=== PATIENT | female | born 1960 | race Caucasian/White ===

== ENCOUNTER 2016-12-29 17:10 | Emergency (ER) | payer OTHER ==
[2016-12-29 17:22] VITALS: PULSE 69; O2SAT 95
--- NOTE | 2016-12-29 17:50 | ERPHSYRPT ---
- History of Present Illness Time Seen by Provider: 12/29/16 17:44 Source: patient Exam Limitations: no limitations Patient Subjective Stated Complaint: Pt states she tripped and fell onto right shoulder. Pt complaining of pain in the right shoulder and abrasions to the lower right arm. Denies hitting her head or loss of consciousness. Triage Nursing Assessment: Pt alert and oriented x3. skin pink warm and dry. afebrile. bruising noted to right upper arm. abrasions noted to right lower arm. no obvious deformities noted to right shoulder. cap refill <3 sec. radial pulse present and regular Physician History: The patient is a right-handed female complaining of right shoulder pain after falling on the floor on her right shoulder. She also skinned her right wrist. She doesn't know when her last tetanus vaccination was given. She fell because her feet have been going numb recently. She has an appointment in just a few days to have this checked out. Today she did not hit her head and she denies loss of consciousness. Her past medical history is significant for GERD, depression, hypertension, and asthma. Occurred: just prior to arrival Reason for Fall: lost balance, fell from standing pos Injuries/Pain Location: upper extremity Loss of Consciousness: no loss of consciousness Quality: aching Severity of Pain-Max: mild Severity of Pain-Current: mild Modifying Factors: Improves With: nothing Associated Symptoms (Fall): extremity injury Allergies/Adverse Reactions: Penicillins Allergy (Severe, Verified 12/29/16 17:22) Difficulty Breathing codeine Allergy (Mild, Verified 12/29/16 17:22) Hives aspirin Allergy (Verified 12/29/16 17:22) ibuprofen [From Motrin] Allergy (Verified 12/29/16 17:22) Home Medications: Albuterol Sulfate [Albuterol Sulfate Hfa] 2 puffs IH BID PRN 09/23/13 [History] Lisinopril 10 mg [Zestril 10 MG] 30 mg PO DAILY 09/23/13 [History] Citalopram Hydrobromide [ceLEXa] 40 mg PO DAILY 05/15/16 [History] Zolpidem Tartrate [Ambien] 10 mg PO DAILY 05/15/16 [History] Aripiprazole [Abilify] 5 mg PO DAILY 12/29/16 [History] Disulfiram [Antabuse] 500 mg PO DAILY 12/29/16 [History] Omeprazole 20 MG [Prilosec 20 mg] 20 mg PO DAILY 12/29/16 [History] Hx Tetanus, Diphtheria Vaccination/Date Given: (unknown) Hx Influenza Vaccination/Date Given: Yes Hx Pneumococcal Vaccination/Date Given: No - Review of Systems Constitutional: No Fever, No Chills Eyes: No Symptoms Ears, Nose, & Throat: No Symptoms Respiratory: No Cough, No Dyspnea Cardiac: No Chest Pain, No Edema, No Syncope Abdominal/Gastrointestinal: No Abdominal Pain, No Nausea, No Vomiting, No Diarrhea Genitourinary Symptoms: No Symptoms Musculoskeletal: Fall, Injury Skin: No Rash Neurological: No Dizziness, No Focal Weakness, No Sensory Changes Psychological: No Symptoms Endocrine: No Symptoms Hematologic/Lymphatic: No Symptoms Immunological/Allergic: No Symptoms - Past Medical History Pertinent Past Medical History: Yes Neurological History: Seizures ENT History: No Pertinent History Cardiac History: Hypertension Respiratory History: Asthma Endocrine Medical History: Hypoglycemia Musculoskeletal History: Fractures GI Medical History: Ulcer History: Other Psycho-Social History: Depression, Other Female Reproductive Disorders: No Pertinent History Other Medical History: PTSD - Past Surgical History Past Surgical History: Yes Neuro Surgical History: No Pertinent History Cardiac: No Pertinent History Respiratory: No Pertinent History Gastrointestinal: No Pertinent History Musculoskeletal: Orthopedic Surgery Female Surgical History: Section Other Surgical History: RIGHT ARM X2 - Social History Smoking Status: Former smoker Exposure to second hand smoke: No Drug Use: none Patient Lives Alone: Yes - Female History Hx Now: No - Nursing Vital Signs Nursing Vital Signs: Initial Vital Signs Temperature 98.6 F Temperature Source Oral Pulse Rate 69 Respiratory Rate 16 Pain Intensity 6 - [place] Coma Score Best Eye Response (Jony): (4) open spontaneously Best Verbal Response ([place]): (5) oriented Best Motor Response ([place]): (6) obeys commands [place] Total: 15 - Physical Exam General Appearance: no apparent distress, alert Head Injury: no evidence of injury Eye Exam: PERRL/EOMI ENT Exam: airway nml Neck Exam: normal inspection, No tenderness Respiratory/Chest Exam: normal breath sounds, No chest tenderness, No respiratory distress Cardiovascular Exam: normal heart sounds, regular rate/rhythm Gastrointestinal Exam: soft, No tenderness, No distention, No guarding, No ecchymosis Rectal Exam: not done Back Exam: normal inspection, No vertebral tenderness Extremity Exam: limited range of motion (right shoulder), tenderness, other ( abrasion to right wrist) Neurologic Exam: alert, oriented x 3, cooperative, sensation nml, No motor deficits Skin Exam: normal color, warm, dry SpO2 Interpretation: normal SpO2: 95 Oxygen Delivery: Room Air - Radiology Exams Right Shoulder X-ray Interpretation: Interpreted by me, Negative, No Fracture, Other (No PTX) Ordered Tests: Active Orders 24 hr Category Date Time Status SHOULDER Stat Exams 12/29/16 17:53 Taken Medication Summary Discontinued Medications Generic Name Dose Route Start Last Admin Trade Name Freq PRN Reason Stop Dose Admin Diphtheria/Tetanus/Acell Pertussis 0.5 ml 12/29/16 17:53 12/29/16 18:05 Adacel Vial IM 12/29/16 17:54 0.5 ml .ONCE ONE Administration Diphtheria/Tetanus/Acell Pertussis Confirm 12/29/16 18:01 Adacel Vial Administered 12/29/16 18:02 Dose 0.5 ml IM .STK-MED ONE - Progress Progress: unchanged Counseled pt/family regarding: rad results - Departure Time of Disposition: 19:35 Departure Disposition: Home Clinical Impression: Contusion of right shoulder Condition: Stable Critical Care Time: No Additional Instructions: You have a contusion of your right shoulder that occurred when you fell today. The x-ray was negative of your shoulder for fracture. Apply ice to the area as needed. Take Tylenol as needed.
[2016-12-29] MEDS ORDERED: Adacel Vial IM ONE ×2 (17:53→18:01)
--- NOTE | 2016-12-30 08:48 | XRAY ---
Indication: Pain following fall. Comparison: None 3 views of the right shoulder demonstrates minimal AC degenerative arthropathy. No other bony, articular, or soft tissue abnormalities.
== END 2016-12-29 19:41 | disposition home or self-care (01) ==
LOC: ED 17:10
DX: S40.011A Contusion of right shoulder, initial encounter (principal); W01.0XXA Fall on same level from slipping, tripping and stumbling without subsequent striking against object, initial encounter; S60.811A Abrasion of right wrist, initial encounter
CPT/HCPCS: 73030; 90471; 90715; 99283; 99284

== ENCOUNTER 2017-01-14 09:18 | Emergency (ER) | payer OTHER ==
--- NOTE | 2017-01-14 09:52 | ERPHSYRPT ---
- History of Present Illness Time Seen by Provider: 01/14/17 09:46 Source: patient Exam Limitations: no limitations Patient Subjective Stated Complaint: tripped with croc shoes on this am and hit a porcelin piece of pottery with right arm and struck left lower chin Triage Nursing Assessment: to room per w/c. patient states she prefers to use w /c due to instability when walking. states her doctor is seeing her for this and trying more meds. long abrasions noted to right lower arm without bleeding. has 2cm lac to left lower lip with minimal bleeding. denies hitting head and denies loc. rosenbaum without difficulty. right radial pulse strong. good cap refill. Physician History: The patient is a right-handed 56-year-old female who tripped this morning and fell causing abrasions and pain to her right forearm as well as hitting her chin causing a small laceration to her lower lip area. She denies loss of consciousness. Her tetanus vaccination was within the past year. Her past medical history is significant for fractures of her right forearm with hardware fixation. Her past medical history is also significant for GERD, hypertension, and asthma. Occurred: just prior to arrival Reason for Fall: tripped, fell from standing pos Injuries/Pain Location: face, upper extremity (right forearm) Loss of Consciousness: no loss of consciousness Quality: sharpness Severity of Pain-Max: mild Severity of Pain-Current: mild Modifying Factors: Improves With: nothing Associated Symptoms (Fall): extremity injury Allergies/Adverse Reactions: Penicillins Allergy (Severe, Verified 01/14/17 09:32) Difficulty Breathing codeine Allergy (Mild, Verified 01/14/17 09:32) Hives aspirin Allergy (Verified 01/14/17 09:32) ibuprofen [From Motrin] Allergy (Verified 01/14/17 09:32) Home Medications: Albuterol Sulfate [Albuterol Sulfate Hfa] 2 puffs IH BID PRN 09/23/13 [History] Lisinopril 10 mg [Zestril 10 MG] 30 mg PO DAILY 09/23/13 [History] Citalopram Hydrobromide [ceLEXa] 40 mg PO DAILY 05/15/16 [History] Zolpidem Tartrate [Ambien] 10 mg PO DAILY 05/15/16 [History] Aripiprazole [Abilify] 5 mg PO DAILY 12/29/16 [History] Disulfiram [Antabuse] 500 mg PO DAILY 12/29/16 [History] Omeprazole 20 MG [Prilosec 20 mg] 20 mg PO DAILY 12/29/16 [History] Hx Tetanus, Diphtheria Vaccination/Date Given: Yes (2016) Hx Influenza Vaccination/Date Given: Yes Hx Pneumococcal Vaccination/Date Given: No - Review of Systems Constitutional: No Fever, No Chills Eyes: No Symptoms Ears, Nose, & Throat: No Symptoms Respiratory: No Cough, No Dyspnea Cardiac: No Chest Pain, No Edema, No Syncope Abdominal/Gastrointestinal: No Abdominal Pain, No Nausea, No Vomiting, No Diarrhea Genitourinary Symptoms: No Dysuria Musculoskeletal: Fall, Injury Skin: Other (lac) Neurological: No Dizziness, No Focal Weakness, No Sensory Changes Psychological: No Symptoms Endocrine: No Symptoms Hematologic/Lymphatic: No Symptoms Immunological/Allergic: No Symptoms All Other Systems: Reviewed and Negative - Past Medical History Pertinent Past Medical History: Yes Neurological History: Seizures ENT History: No Pertinent History Cardiac History: Hypertension Respiratory History: Asthma Endocrine Medical History: Hypoglycemia Musculoskeletal History: Fractures GI Medical History: Ulcer History: Other Psycho-Social History: Depression, Other Female Reproductive Disorders: No Pertinent History Other Medical History: PTSD - Past Surgical History Past Surgical History: Yes Neuro Surgical History: No Pertinent History Cardiac: No Pertinent History Respiratory: No Pertinent History Gastrointestinal: No Pertinent History Musculoskeletal: Orthopedic Surgery Female Surgical History: Hysterectomy, Section Other Surgical History: RIGHT ARM X2 - Social History Smoking Status: Never smoker Exposure to second hand smoke: No Drug Use: none Patient Lives Alone: Yes - Female History Hx Now: No - Nursing Vital Signs Nursing Vital Signs: Initial Vital Signs Temperature 98.3 F Temperature Source Oral Pulse Rate 83 Respiratory Rate 18 Blood Pressure [] 136/58 Pain Intensity 6 - [place] Coma Score Best Eye Response ([place]): (4) open spontaneously Best Verbal Response ([place]): (5) oriented Best Motor Response ([place]): (6) obeys commands [place] Total: 15 - Physical Exam General Appearance: no apparent distress, alert Head Injury: lacerations (Through and through 1 cm lac in lower lip and surrounding skin.) Eye Exam: PERRL/EOMI ENT Exam: airway nml Neck Exam: normal inspection, No tenderness Respiratory/Chest Exam: normal breath sounds, No chest tenderness, No respiratory distress Cardiovascular Exam: normal heart sounds, regular rate/rhythm Gastrointestinal Exam: soft, No tenderness, No distention, No guarding, No ecchymosis Rectal Exam: not done Back Exam: No vertebral tenderness Extremity Exam: evidence of injury (tenderness and abrasions to right forearm), pain with movement Neurologic Exam: alert, oriented x 3, cooperative, sensation nml, No motor deficits Skin Exam: laceration (skin beneath lower lip) SpO2 Interpretation: normal SpO2: 96 Oxygen Delivery: Room Air Procedures - Laceration/Wound Repair Lower Lip Wound Location: face (skin beneath lower lip) Wound Length (cm): 1 Wound's Depth, Shape: into muscle, linear Wound Explored: clean Hibiclens Prep: Yes Wound Repaired With: Dermabond - Radiology Exams Right Forearm X-ray Interpretation: Teleradiologist Report, No Fracture (No acute abnormality per DR Garcia) Ordered Tests: Active Orders 24 hr Category Date Time Status Wound Care STAT Care 01/14/17 09:58 Active FOREARM Stat Exams 01/14/17 09:59 Completed - Progress Progress: unchanged Counseled pt/family regarding: diagnosis, rad results - Departure Time of Disposition: 11:23 Departure Disposition: Home Clinical Impression: Contusion of right arm, Laceration of face Condition: Stable Critical Care Time: No Additional Instructions: You had a fall that caused a contusion and abrasions to your right forearm. X- ray of your right forearm did not show any fracture. Your tetanus vaccination is up-to-date. You also had a laceration just beneath your lower lip that was repaired with Dermabond. Take Tylenol for pain as needed. Follow-up as needed.
--- NOTE | 2017-01-14 11:13 | XRAY ---
Exam: 2 views of the right forearm from 01/14/2017. Comparison: None. Indication: Fall, right forearm laceration (external arrow points towards site of laceration injury on lateral image), history of previous surgeries and fractures. Findings: AP and lateral images of the right forearm were obtained. I see no underlying bone or soft tissue abnormality at the level of the external arrow which points towards the dorsal aspect of the right ulna, just proximal to the midpoint. No other evidence of acute fracture is seen. 2 crisscrossing metallic screw and pin devices traverse the distal right radius and distal right ulnar styloid remnant. A portion of the distal right ulnar shaft has been surgically excised. It also appears that the right radial head and neck have been excised. A couple old appearing dystrophic calcifications are seen adjacent to the proximal end of the remaining radial shaft at the level of the elbow joint on the lateral radiograph. I see no elevation of anterior fat pad. However, there is a suggestion of a minimal posterior fat pad. Arthritic changes are seen at the level of the right elbow along the medial aspect. The radiocarpal joint appears unremarkable. Impression: 1. I see no acute fracture or radiopaque soft tissue foreign body at the site of the patient's injury, or elsewhere within the right forearm. 2. Surgical excision of a portion of the distal right ulna and proximal right radius is seen. 2 traversing pins/screw devices are seen just proximal to the right wrist joint. 3. 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 4. I cannot exclude a minimal posterior fat pad just proximal to the right elbow joint.
[2017-01-14 11:44] VITALS: BP 141/83; PULSE 79; O2SAT 98
== END 2017-01-14 11:43 | disposition home or self-care (01) ==
LOC: ED 09:18
PROC: 0CQ1XZZ Repair Lower Lip, External Approach (ICD-10-PCS; principal; 2017-01-14)
DX: S40.021A Contusion of right upper arm, initial encounter (principal); S01.511A Laceration without foreign body of lip, initial encounter; W01.198A Fall on same level from slipping, tripping and stumbling with subsequent striking against other object, initial encounter
CPT/HCPCS: 12011; 73090; 99282

== ENCOUNTER 2017-01-18 07:14 | Observation (INO) | payer OTHER ==
[2017-01-18] MEDS ORDERED: Sodium Chloride 0.9% 1000 ML 1,000 ML IV STA ×2 (07:38→07:48)
[2017-01-18] MEDS ORDERED: Ativan 2 MG/1 ML VIAL IV ONE (07:53)
[2017-01-18 07:54] LABS: BASOPHIL % 0.6 % (0.0-0.4); Eosinophil % 1.4 % (0.00-5.0); Granulocytes % 48.2 % (36.0-66.0); Lymphocytes % 40.8 % (24.0-44.0); Mean Cell Volume 90.3 fl (78-100); Mean Corpuscular Hemoglobin 30.2 pg (26-32); Mean Platelet Volume 9.8 fl (6-9.5); Platelet Count 345 K/mm3 (150-450); Red Blood Count 5.17 M/mm3 (4.1-5.4); Red Cell Distribution Width 14.2 % (11.5-14.0); White Blood Count 7.2 K/mm3 (4.0-10.5)
--- NOTE | 2017-01-18 07:56 | ERPHSYRPT ---
- History of Present Illness Time Seen by Provider: 01/18/17 07:30 Source: patient, family Exam Limitations: clinical condition Patient Subjective Stated Complaint: pt states has noticed metal status change for the past two weeks. Unsteady gate, frequent falls, pain in feet, forgetful and tremors. Saw her famiyl doctor on Thursday and was referred to a neurologist. was up all night with tremors and could not "figure out how to call out on cell phone". FInally text messaged help to her daughter and she brought her immediatley to the ER. Triage Nursing Assessment: Alert and Ortiented to Person and Place not time. Pupile Equal and reactive. slight fever of 99.0. very unsteady gait-has to have help ambulating. involuntary shaking in the hand and feet. chest clear and equal. mucos membranes dry. very nervous. forgetful. has not slept all night. 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 slight weakness with foot presses but equal. reports pain in feet. reports pain in back of neck but this is not new r/t fall awhile back. no pain with urination. bowels moved this am. heart rate elevated, with all other vitals normal. no facial droop. no obvious new injuries- note several scraps and old bruising from fall a week ago Physician History: PATIENT WITH HISTORY OF HYPERTENSION, ALCOHOL ABUSE AND SEIZURE DISORDER HAS HAD ONSET OF TREMOR, FREQUENT FALLS, SLURRED SPEECH AND UNSTEADY GAIT OVER PAST 2-3 WEEKS. HAS OCCASIONAL NECK PAIN, DENIES NUMBNESS TINGLING OR FOCAL WEAKNESS IN EXTREMITIES. Timing/Duration: week(s) Severity: moderate Character of Deficits: impaired speech, other (UNSTEADY GAIT) Deficits: decrease ability to stand, decrease ability to walk, weak Baseline/Normal Cognition: alert oriented x 3 Current Cognition: alert oriented x 3 Baseline Gait: walks w/o assistance Associated Symptoms: slurred speech, trouble walking Allergies/Adverse Reactions: Penicillins Allergy (Severe, Verified 01/18/17 07:47) Difficulty Breathing codeine Allergy (Mild, Verified 01/18/17 07:47) Hives aspirin Allergy (Verified 01/18/17 07:47) ibuprofen [From Motrin] Allergy (Verified 01/18/17 07:47) cephalexin [From Keflex] Adverse Reaction (Verified 01/18/17 07:47) Home Medications: Albuterol Sulfate [Albuterol Sulfate Hfa] 2 puffs IH BID PRN 09/23/13 [History] Lisinopril 10 mg [Zestril 10 MG] 30 mg PO DAILY 09/23/13 [History] Citalopram Hydrobromide [ceLEXa] 40 mg PO DAILY 05/15/16 [History] Aripiprazole [Abilify] 5 mg PO DAILY 12/29/16 [History] Disulfiram [Antabuse] 500 mg PO DAILY 12/29/16 [History] Omeprazole 20 MG [Prilosec 20 mg] 20 mg PO DAILY 12/29/16 [History] Hx Tetanus, Diphtheria Vaccination/Date Given: Yes (2016) Hx Influenza Vaccination/Date Given: Yes Hx Pneumococcal Vaccination/Date Given: No - Review of Systems Constitutional: No Fever, No Chills Eyes: No Symptoms Ears, Nose, & Throat: No Symptoms Respiratory: No Symptoms, No Cough, No Dyspnea Cardiac: No Symptoms, No Chest Pain, No Edema, No Syncope Abdominal/Gastrointestinal: No Abdominal Pain, No Nausea, No Vomiting, No Diarrhea Genitourinary Symptoms: No Symptoms, No Dysuria Musculoskeletal: No Symptoms, No Back Pain, No Neck Pain Skin: No Rash Neurological: Gait Changes, Speech Changes, Tremors, No Dizziness, No Focal Weakness, No Sensory Changes Psychological: No Symptoms Endocrine: No Symptoms All Other Systems: Reviewed and Negative - Past Medical History Pertinent Past Medical History: Yes Neurological History: Seizures ENT History: No Pertinent History Cardiac History: Hypertension Respiratory History: Asthma Endocrine Medical History: Hypoglycemia Musculoskeletal History: Fractures GI Medical History: Ulcer History: Other Psycho-Social History: Depression, Other Female Reproductive Disorders: No Pertinent History Other Medical History: PTSD - Past Surgical History Past Surgical History: Yes Neuro Surgical History: No Pertinent History Cardiac: No Pertinent History Respiratory: No Pertinent History Gastrointestinal: No Pertinent History Musculoskeletal: Orthopedic Surgery Female Surgical History: Hysterectomy, Section Other Surgical History: RIGHT ARM X2 - Social History Smoking Status: Never smoker Exposure to second hand smoke: No Drug Use: none Patient Lives Alone: Yes - Female History Hx Now: No - Nursing Vital Signs Nursing Vital Signs: Initial Vital Signs Temperature 99.0 F Temperature Source Oral Pulse Rate 87 Respiratory Rate 18 Blood Pressure [] 146/81 Pain Intensity 0 - Jony Coma Scale Best Eye Response (Jony): (4) open spontaneously Best Verbal Response (Wall): (5) oriented Best Motor Response (Wall): (6) obeys commands Jony Total: 15 - Physical Exam General Appearance: no apparent distress, alert Eye Exam: bilateral eye: PERRL, EOMI Ears, Nose, Throat Exam: normal ENT inspection, moist mucous membranes Neck Exam: normal inspection, non-tender, supple Respiratory: normal breath sounds, lungs clear, airway intact, No respiratory distress Cardiovascular: regular rate/rhythm, No edema Gastrointestinal: soft, No tenderness, No distention Back Exam: normal inspection Extremity Exam: normal inspection, No pedal edema Peripheral Pulses: carotid (R): 2+, carotid (L): 2+, femoral (R): 2+, femoral (L ): 2+, dorsalis-pedis (R): 2+, dorsalis-pedis (L): 2+ 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, 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: normal hearing, normal speech, tongue midline Coordination/Gait: normal finger to nose, normal cerebellar function, abnormal gait Motor/Sensory: no motor deficit, no sensory deficit DTR: bicep (R): 2+, bicep (L): 2+, tricep (R): 2+, tricep (L): 2+, knee (R): 2+ , knee (L): 2+, ankle (R): 2+, ankle (L): 2+ Skin Exam: normal color, warm, dry, No rash SpO2 Interpretation: normal SpO2: 96 Oxygen Delivery: Room Air - Course EKG Interpreted by Me: RATE, Sinus Rhythm, Sinus Tach, Right Cora Deviation, Non -specific ST Changes - Radiology Exams Chest X-ray Interpretation: Discussed w/ radiologist, Negative - CT Exams Head CT Interpretation: Discussed w/radiologist, No/Intracranial Hemorrhag Ordered Tests: Active Orders 24 hr Category Date Time Status Up With Assistance ROUTINE Activity 01/18/17 09:50 Ordered Admission/Status Order ROUTINE Care 01/18/17 09:50 Ordered Call Admit Doctor for Orders ON ADMISSION Care 01/18/17 09:51 Ordered Mail Rider STAT Care 01/18/17 07:38 Active Code Status Order ROUTINE Care 01/18/17 09:50 Ordered EKG-ER Only STAT Care 01/18/17 07:38 Active IV Care Q6H Care 01/18/17 09:50 Ordered Intake and Output Q12H Care 01/18/17 09:50 Ordered Neuro Checks Q2H Care 01/18/17 09:50 Ordered Oxygen-ED Only NASAL CANNULA 2 lpm Care 01/18/17 07:38 Active Telemetry ROUTINE Care 01/18/17 09:50 Ordered Vital Signs Q4H Care 01/18/17 09:50 Ordered cath [Cath for Specimen-Straight] STAT Care 01/18/17 08:17 Active Regular Diet Diet 01/18/17 Lunch Ordered CERVICAL SPINE WO CONTRAST [CT] Stat Exams 01/18/17 07:56 Completed CHEST 1 VIEW (PORTABLE) Stat Exams 01/18/17 07:38 Completed HEAD WITHOUT CONTRAST [CT] Stat Exams 01/18/17 07:38 Completed CBC W DIFF Stat Lab 01/18/17 07:46 Completed CMP Stat Lab 01/18/17 07:46 Completed CULTURE,URINE Stat Lab 01/18/17 08:30 Received MAGNESIUM Stat Lab 01/18/17 07:45 Completed PROTIME WITH INR Stat Lab 01/18/17 07:46 Completed TROPONIN Q3H Lab 01/18/17 08:00 Completed TROPONIN Q3H Lab 01/18/17 11:00 Ordered TROPONIN Q3H Lab 01/18/17 14:00 Ordered TROPONIN Q3H Lab 01/18/17 17:00 Ordered TROPONIN Q3H Lab 01/18/17 20:00 Ordered UA W/ MICROSCOPIC Stat Lab 01/18/17 08:30 Completed Transfer Order Routine Transfer 01/18/17 09:50 Ordered Medication Summary Discontinued Medications Generic Name Dose Route Start Last Admin Trade Name Sdq PRN Reason Stop Dose Admin Sodium Chloride 1,000 mls @ 250 mls/hr 01/18/17 07:38 01/18/17 08:27 Sodium Chloride 0.9% 1000 Ml IV 01/18/17 11:37 Not Given .Q4H STA Sodium Chloride 1,000 mls @ 500 mls/hr 01/18/17 07:48 01/18/17 08:16 Sodium Chloride 0.9% 1000 Ml IV 01/18/17 09:47 500 mls/hr .Q2H STA Administration Sodium Chloride Confirm 01/18/17 07:58 Sodium Chloride 0.9% 1000 Ml Administered 01/18/17 07:59 Dose 1,000 mls @ ud .ROUTE .STK-MED ONE Lorazepam 1 mg 01/18/17 07:53 01/18/17 08:16 Ativan 2 Mg/1 Ml Vial IV 01/18/17 07:54 1 mg STAT ONE Administration Lorazepam Confirm 01/18/17 07:58 Ativan 2 Mg/1 Ml Vial Administered 01/18/17 07:59 Dose 2 mg .ROUTE .STK-MED ONE Lab/Rad Data: Laboratory Result Diagrams 01/18/17 07:46 01/18/17 07:46 Laboratory Results 01/18/17 01/18/17 01/18/17 Range/Units 08:30 08:00 07:46 WBC (4.0-10.5) K/mm3 RBC (4.1-5.4) M/mm3 Hgb (12.0-16.0) gm/dl Hct (35-47) % MCV (78-100) fl MCH (26-32) pg MCHC (32-36) g/dl RDW (11.5-14.0) % Plt Count (150-450) K/mm3 MPV (6-9.5) fl Gran % (36.0-66.0) % Lymphocytes % (24.0-44.0) % Monocytes % (0.0-12.0) % Eosinophils % (0.00-5.0) % Basophils % (0.0-0.4) % Basophils # (0-0.4) INR 1.10 (0.8-3.0) Sodium (136-145) mEq/L Potassium (3.5-5.1) mEq/L Chloride (98-107) mEq/L Carbon Dioxide (21-32) mEq/L Anion Gap (5-15) MEQ/L BUN (9-20) mg/dL Creatinine (0.55-1.30) mg/dl Estimated GFR ML/MIN Glucose (70-110) MG/DL Calcium (8.5-10.1) mg/dL Magnesium (1.8-2.4) mg/dL Total Bilirubin (0.2-1.0) mg/dL AST (15-37) U/L ALT (12-78) U/L Alkaline Phosphatase (46-116) U/L Troponin I < 0.017 (0.000-0.056) ng/ml Serum Total Protein (6.4-8.2) gm/dL Albumin (3.4-5.0) g/dL Ur Collection Type CATH Urine Color YELLOW (YELLOW) Urine Appearance CLOUDY (CLEAR) Urine pH 5.5 (5-6) Ur Specific [place] >=1.030 (1.005-1.025) Urine Protein 30 (Negative) Urine Glucose (UA) NEGATIVE (NEGATIVE) mg/dL Urine Ketones SMALL-15 (NEGATIVE) Urine Nitrite NEGATIVE (NEGATIVE) Urine Bilirubin MODERATE (NEGATIVE) Urine Urobilinogen 0.2 (0-1) mg/dL Urine WBC (Auto) NEGATIVE (NEGATIVE) Urine RBC (Auto) TRACE-INTACT (0-5) Andrea/ul Urine Microscopic RBC 2-5 (0-2) /HPF Urine Microscopic WBC 0-2 (0-5) /HPF Ur Epithelial Cells RARE (FEW) /HPF Urine Bacteria FEW (NEGATIVE) /HPF Urine Mucus MODERATE (NEGATIVE) /HPF Specimen Received 01/18/17 0830 01/18/17 01/18/17 01/18/17 Range/Units 07:46 07:46 07:45 WBC 7.2 (4.0-10.5) K/mm3 RBC 5.17 (4.1-5.4) M/mm3 Hgb 15.6 (12.0-16.0) gm/dl Hct 46.7 (35-47) % MCV 90.3 (78-100) fl MCH 30.2 (26-32) pg MCHC 33.4 (32-36) g/dl RDW 14.2 H (11.5-14.0) % Plt Count 345 (150-450) K/mm3 MPV 9.8 H (6-9.5) fl Gran % 48.2 (36.0-66.0) % Lymphocytes % 40.8 (24.0-44.0) % Monocytes % 9.0 (0.0-12.0) % Eosinophils % 1.4 (0.00-5.0) % Basophils % 0.6 (0.0-0.4) % Basophils # 0.04 (0-0.4) INR (0.8-3.0) Sodium 139 (136-145) mEq/L Potassium 4.5 (3.5-5.1) mEq/L Chloride 102 (98-107) mEq/L Carbon Dioxide 24.5 (21-32) mEq/L Anion Gap 16.6 H (5-15) MEQ/L BUN 20 (9-20) mg/dL Creatinine 1.15 (0.55-1.30) mg/dl Estimated GFR 52 ML/MIN Glucose 138 H (70-110) MG/DL Calcium 10.3 H (8.5-10.1) mg/dL Magnesium 1.8 (1.8-2.4) mg/dL Total Bilirubin 0.60 (0.2-1.0) mg/dL AST 18 (15-37) U/L ALT 22 (12-78) U/L Alkaline Phosphatase 145 H (46-116) U/L Troponin I (0.000-0.056) ng/ml Serum Total Protein 8.0 (6.4-8.2) gm/dL Albumin 3.9 (3.4-5.0) g/dL Ur Collection Type Urine Color (YELLOW) Urine Appearance (CLEAR) Urine pH (5-6) Ur Specific [place] (1.005-1.025) Urine Protein (Negative) Urine Glucose (UA) (NEGATIVE) mg/dL Urine Ketones (NEGATIVE) Urine Nitrite (NEGATIVE) Urine Bilirubin (NEGATIVE) Urine Urobilinogen (0-1) mg/dL Urine WBC (Auto) (NEGATIVE) Urine RBC (Auto) (0-5) Andrea/ul Urine Microscopic RBC (0-2) /HPF Urine Microscopic WBC (0-5) /HPF Ur Epithelial Cells (FEW) /HPF Urine Bacteria (NEGATIVE) /HPF Urine Mucus (NEGATIVE) /HPF Specimen Received - Progress Progress Note: 01/18/17 09:54 PATIENT GIVEN NORMAL SALINE 500ML/HR FOR TACHYCARDIA, 01/18/17 09:55 HR IMPROVED FROM [address] TO [address] Wyman (DISCUSSED WITH DR WYMAN AT 0925 FOR OBSERVATION) - Departure Time of Disposition: 10:00 Departure Disposition: Observation Clinical Impression: TRANSIENT ISCHEMIC ATTACK Condition: Stable Critical Care Time: No Referrals: KIA ANNE MD [Primary Care Provider] -
[2017-01-18] MEDS ORDERED: Sodium Chloride 0.9% 1000 ML 1,000 ML ONE (07:58)
[2017-01-18] MEDS ORDERED: Ativan 2 MG/1 ML VIAL ONE (07:58)
[2017-01-18 08:07] LABS: INR 1.1 (0.8-3.0); PROTIME 12.3 SECONDS (9.95-12.35)
[2017-01-18 08:19] LABS: ALBUMIN 3.9 g/dL (3.4-5.0); ANION GAP 16.6 MEQ/L (5-15); BILIRUBIN,TOTAL 0.6 mg/dL (0.2-1.0); Carbon Dioxide 24.5 mEq/L (21-32); Potassium 4.5 mEq/L (3.5-5.1)
--- NOTE | 2017-01-18 08:24 | XRAY ---
Indication: Mental status change. Unsteady gait. History of falls. Multiple contiguous axial images obtained through the head without contrast. Comparison: September 23, 2013. Again normal appearing brain parenchyma, ventricles, and bony calvarium. Visualized paranasal sinuses and mastoid air cells are pneumatized and clear. Impression: Stable normal CT head without contrast exam. CTDI 50.53
--- NOTE | 2017-01-18 08:29 | XRAY ---
Indication: Right neck pain. Mental status change. Unsteady gait. History of falls. Multiple contiguous axial images obtained through the cervical spine. Sagittal and coronal reformatted images obtained. Comparison: None. Axial images negative for acute fracture, suspicious bony lesions, or spinal canal stenosis. Mild C3-C7 degenerative endplate spurring. Sagittal and coronal reformatted images demonstrate lordotic straightening, positional versus paraspinal spasm. C3-C7 degenerative disc space narrowing. Minimal 2-3 mm C3 retrolisthesis on C4. No acute fracture or jumped facet. Normal-appearing craniocervical junction. Visualized noncontrasted soft tissues including lung apices unremarkable. CT head reported separately. Impression: 1. Negative acute fracture/subluxation. 2. Lordotic straightening, positional versus paraspinal spasm. 3. Multilevel degenerative changes including minimal C3 retrolisthesis. CTDI 50.53
[2017-01-18 08:34] LABS: ADD URINE CULTURE? YES (NO); COMPLETE URINE MICROSCOPIC? YES; Collection Type CATH; Ph 5.5 (5-6)
--- NOTE | 2017-01-18 08:35 | XRAY ---
Indication: Cough. Comparison: None Portable chest hyperinflated with calcified granulomas. No infiltrate, consolidation, or large effusion. Heart is not enlarged. Bony thorax intact. Impression: Nonacute hyperinflated chest.
[2017-01-18 08:42] LABS: Bacteria FEW /HPF (NEGATIVE); Epithelial Cells RARE /HPF (FEW); Mucus MODERATE /HPF (NEGATIVE); WBC 0-2 /HPF (0-5)
[2017-01-18] MEDS ORDERED: TYLENOL 325 MG PO PRN (09:50)
[2017-01-18] MEDS ORDERED: Zofran 4 MG/2 ML VIAL IV PRN (09:50)
[2017-01-18] MEDS ORDERED: DUONEB 0.5-3 MG/3 ml Neb IH PRN (09:50)
[2017-01-18] MEDS ORDERED: Zestril 10 MG PO SCH (10:00)
[2017-01-18] MEDS ORDERED: Abilify 10 MG PO SCH (10:00)
[2017-01-18] MEDS: Sodium Chloride 0.9% 1000 ML 1,000 ML IV SCH ×2 (11:18→23:48)
[2017-01-18] MEDS ORDERED: THERAGRAN MULTIVITAMIN PO ONE (11:36)
[2017-01-18] MEDS ORDERED: FOLATE 1 MG PO ONE (11:37)
[2017-01-18] MEDS ORDERED: VITAMIN B-1 100 MG PO ONE (11:37)
[2017-01-18] MEDS: ceLEXa 20 MG PO SCH (12:47)
[2017-01-18] MEDS ORDERED: Ventolin Hfa MDI IH SCH (13:15)
[2017-01-18] MEDS ORDERED: MEDICATION INTERVENTION MC PRN (13:35)
[2017-01-18] MEDS ORDERED: PROVENTIL COMMON CANISTER IH SCH (13:45)
[2017-01-18] MEDS: Protonix 40MG Tablet PO SCH (14:54)
--- NOTE | 2017-01-19 07:50 | PCM.HP ---
History of Present Illness - Chief Complaint Chief Complaint: TIA History of Present Illness: is a 56 year old female with a recent history of peripheraal nerve problems, paresthesias and difficulty ambulating. She has a complex psychiatric history including PTSD, she has significant nightmares associated with this. She was recently seen and had her abilify dosage increased from 2.5 to 5mg due to inability to sleep, terrible nightmares etc. Since that time her symptoms have been worse as far as paresthesias, she has had falls. Head CT was negative , she had lab workup which showed mildly low folic acid level so she was started on 1mg/day folic acid although it is not reflected on her home medication list. - Review of Systems Constitutional: No Fever, No Chills Respiratory: No Cough, No Short Of Breath Cardiac: No Chest Pain, No Edema, No Syncope Abdominal/Gastrointestinal: No Abdominal Pain, No Nausea, No Vomiting, No Diarrhea Neurological: Gait Changes, Parasthesia, Sensory Changes, No Seizure Psychological: Alcohol Abuse, Emotional Lability Medications & Allergies Home Medications: Home Medication List Albuterol Sulfate [Albuterol Sulfate Hfa] 2 puffs IH BID PRN 09/23/13 [History Confirmed 01/18/17] Lisinopril 10 mg [Zestril 10 MG] 30 mg PO DAILY 09/23/13 [History Confirmed 01/18/17] Citalopram Hydrobromide [ceLEXa] 40 mg PO DAILY 05/15/16 [History Confirmed 12/01] Aripiprazole [Abilify] 5 mg PO DAILY 12/29/16 [History Confirmed 01/18/17] Disulfiram [Antabuse] 500 mg PO DAILY 12/29/16 [History Confirmed 01/18/17] Omeprazole 20 MG [Prilosec 20 mg] 40 mg PO DAILY 12/29/16 [History Confirmed 12/01] Allergies/Adverse Reactions: Allergies Allergy/AdvReac Type Severity Reaction Status Date / Time Penicillins Allergy Severe Difficulty Verified 01/18/17 10:36 Breathing codeine Allergy Mild Hives Verified 01/18/17 10:36 aspirin Allergy Verified 01/18/17 10:36 ibuprofen [From Motrin] Allergy Verified 01/18/17 10:36 cephalexin [From Keflex] AdvReac Verified 01/18/17 10:36 - Past Medical History Past Medical History: Yes Neurological History: Seizures ENT History: No Pertinent History Cardiac History: Hypertension Respiratory History: Asthma Endocrine Medical History: Hypoglycemia Musculoskelatal History: Fractures GI Medical History: Ulcer History: Other Pyscho-Social History: Depression, Other Reproductive Disorders: No Pertinent History Comment: PTSD - Female History Are you now?: No - Past Surgical History Past Surgical History: Yes Neuro Surgical History: No Pertinent History Cardiac History: No Pertinent History Respiratory Surgery: No Pertinent History GI Surgical History: No Pertinent History Musculskeletal Surgical Hx: Orthopedic Surgery Female Surgical History: Hysterectomy, Section Other Surgical History: RIGHT ARM X2 - Social History Smoking Status: Former smoker Exposure to second hand smoke: No Alcohol: None Drug Use: none - Physical Exam Vital Signs: Vital Signs - 24 hr Temp Pulse Resp BP Pulse Ox 01/19/17 07:21 64 18 95 01/19/17 04:15 98.8 F 60 18 160/76 96 01/18/17 23:42 98.5 F 60 18 146/76 96 01/18/17 20:34 87 17 95 01/18/17 19:42 98.8 F 84 20 144/66 95 01/18/17 16:02 85 18 98 01/18/17 16:00 99.0 F 99 H 18 114/58 94 L 01/18/17 11:05 98.4 F 73 18 148/77 97 01/18/17 10:43 98.4 F 73 18 148/77 97 01/18/17 09:56 96 01/18/17 09:00 87 18 146/81 01/18/17 08:16 112 H 16 143/77 95 01/18/17 08:04 108 H 18 143/77 98 Oxygen-Last 24 hours O2 Percentage 2 Liters = 28% O2 Percentage 2 Liters = 28% O2 Percentage 2 Liters = 28% General Appearance: no apparent distress, alert Neurologic Exam: alert, oriented x 3, cooperative, normal mood/affect, nml cerebellar function, nml station & gait, No sensation nml (decreased sensation to león feet plantar aspect), No motor deficits Eye Exam: PERRL/EOMI, eyes nml inspection Respiratory Exam: normal breath sounds, lungs clear, No respiratory distress Cardiovascular Exam: regular rate/rhythm, normal heart sounds, normal peripheral pulses Gastrointestinal/Abdomen Exam: soft, normal bowel sounds, No tenderness, No mass Extremity Exam: normal inspection, normal range of motion, pelvis stable Skin Exam: normal color, warm, dry, No rash Results - Labs Lab/Micro Results: Lab Results-Last 24 Hours 01/18/17 01/18/17 01/18/17 Range/Units 11:10 14:00 17:05 Troponin I < 0.017 < 0.017 < 0.017 (0.000-0.056) ng/ml Folic Acid (8.6-58.9) 01/18/17 01/19/17 Range/Units 20:10 05:15 Troponin I < 0.017 (0.000-0.056) ng/ml Folic Acid 18.9 (8.6-58.9) - Radiology Impressions Radiology Exams & Impressions: Radiology Procedures Category Date Time Status MRI BRAIN W & W/O CONTRAST [MRI] Routine Exams 01/19/17 08:00 Ordered MRI C-SPINE W & WO CONTRAST [MRI] Routine Exams 01/19/17 08:00 Ordered - Other Procedures and Tests Respiratory Therapy 01/18/17 14:15 neb [Respiratory Nebulizer] 01/18/17 14:22 Respiratory MDI 01/18/17 21:05 Oxygen NASAL CANNULA 2 lpm Assessment/Plan (1) Paresthesia Current Visit: Yes Status: Acute Assessment & Plan: continue folic acid, neuro consult recommends further imaging with MRI. In my opinion likely serotonin syndrome/adverse med reaction vs psychiatric disorder. will obtain psych consult and decrease abilify to 2.5mg as was done in the office last week Code(s): R20.2 - PARESTHESIA OF SKIN (2) Altered mental status Current Visit: Yes Status: Acute Code(s): R41.82 - ALTERED MENTAL STATUS, UNSPECIFIED (3) Post traumatic stress disorder (PTSD) Current Visit: Yes Status: Acute Code(s): F43.10 - POST-TRAUMATIC STRESS DISORDER, UNSPECIFIED
--- NOTE | 2017-01-19 08:47 | HP ---
HISTORY OF PRESENT ILLNESS: This is a 56 year-old patient of Dr. Barraza who presented to the emergency department today with her daughter. They report that she has had trouble walking, talking and some trouble with twitching for the past three weeks that has gotten worse. She reports that she has had falls for the past two weeks. Her last fall was within the last week which she came to the emergency room for and had to have her lower lip glued. They report that they saw Dr. Barraza on Thursday and have an appointment with a neurologist as an outpatient on Thursday. She states she is feeling better since being here in the hospital. She reports that she does not have much of an appetite but has been drinking some fluids and appetite seems to be better now. She reports aspirin she thinks caused her not to be able to breathe so she was not given any aspirin in the emergency department. Head CT was negative in the emergency room. The emergency room doctor reports that he thinks she had a transient ischemic attack. She has not had a tele-neurology consult yet. REVIEW OF SYSTEMS: She has had some dyspnea due to asthma. No chest pain. No abdominal pain. No dysuria. She struggles with a headache. She had some cough and rhinorrhea. She denies any fever. PAST MEDICAL HISTORY: Alcohol abuse. She reports that she has not used any alcohol since August 2016. Asthma, hypertension, post-traumatic stress disorder, folic acid deficiency. PAST SURGICAL HISTORY: sections x2, arms operated on x2. MEDICATIONS: Albuterol 2 puffs b.i.d. as needed, Abilify 5 mg p.o. daily, citalopram 40 mg p.o. daily, Antabuse 500 mg p.o. daily, lisinopril 30 mg p.o. daily, omeprazole 40 mg p.o. daily, ALLERGIES: PENICILLIN, ASPIRIN, CEPHALEXIN, CODEINE, IBUPROFEN. SOCIAL HISTORY: She denies any alcohol since she started Antabuse in August 2016. She used to smoke but does not anymore. She lives alone in [id number] quarters behind her daughter's house. FAMILY HISTORY: Her mother is living and has some skin cancer of her leg and dystrophy. Her father is and had coronary artery disease and kidney problems. PHYSICAL EXAMINATION: VITAL SIGNS: Temperature current 98.4F, temperature max 99F, heart rate 73 to 130 currently 73, respiratory rate 16 to 18 currently 18, blood pressure 136 to 148 over 52 to 81, weight 69.8 kg. Oxygen saturation 95 to 97% on 2 liters nasal cannula. GENERAL: The patient is lying in bed, a pleasant talkative lady in no acute distress. She is alert and oriented x3 and knows who the case management rn is. She does seem to have some trouble with word finding but corrects herself. Cranial nerves II-XII are intact. Strength 5/5 in her upper extremities and 4/5 in her lower extremities. Normal finger to nose bilaterally. CVS: Her heart has a regular rate and rhythm. No murmurs, gallops or rubs are appreciated. CHEST: Clear to auscultation bilaterally. No crackles or wheezes. ABDOMEN: Soft, nontender, nondistended with normal bowel sounds. EXTREMITIES: No clubbing, cyanosis or edema. LABORATORY DATA AND TESTS: CBC within normal limits. CMP with a glucose of 138, calcium 10.3. Alkaline phosphatase 145. She has had two negative troponins. UA with specific gravity of greater or equal to 1.030 with small ketones, moderate bilirubin, few bacteria. Cervical spine CT without any acute changes. Please see the radiologist dictation for the full report. Head CT without contrast with no acute changes. Please see the radiologist dictation for full report. Chest x-ray was nonacute hyper-inflated chest. ASSESSMENT AND PLAN: 1) Altered mental status: I will ask for tele-neurology consult and order MRI of her brain with and without contrast be done tomorrow as it is not available on the weekend and will continue with close observation. She is allergic aspirin and reports trouble breathing so we are unable to give her aspirin at this time. 2) Hypercalcemia: Will check PTH, vitamin D and ionized calcium. 3) Anxiety: Will continue with her home medications. 4) Folic acid deficiency: This was low as an outpatient and will continue with replacement of this as well as multivitamin and thiamine.
[2017-01-19] MEDS: THERAGRAN MULTIVITAMIN PO SCH (09:49)
[2017-01-19] MEDS: Abilify 10 MG PO SCH (09:49)
[2017-01-19] MEDS: ceLEXa 20 MG PO SCH (09:50)
[2017-01-19] MEDS: VITAMIN B-1 100 MG PO SCH (09:50)
[2017-01-19] MEDS: Zestril 10 MG PO SCH (09:50)
[2017-01-19] MEDS: Protonix 40MG Tablet PO SCH (09:50)
[2017-01-19] MEDS: FOLATE 1 MG PO SCH (09:50)
[2017-01-19] MEDS ORDERED: DISULFIRAM 500 MG PO SCH (10:00)
[2017-01-19] MEDS ORDERED: NON-FORMULARY ITEM (Omeprazole 20 Mg [Prilosec 20 Mg] 40 MG) PO SCH (10:00)
[2017-01-19] MEDS: Sodium Chloride 0.9% 1000 ML 1,000 ML IV SCH (12:53)
[2017-01-19] MEDS ORDERED: Ativan 2 MG/1 ML VIAL IV ONE (13:30)
--- NOTE | 2017-01-19 15:41 | XRAY ---
Indication: Neck pain. Multiple falls. Possible TIA. Sagittal and axial MRI cervical spine performed without contrast using T1 and T2 weighted sequences. Comparison: None Sagittal images demonstrates cervical lordotic straightening, positional versus paraspinal spasm. Minimal 2-3 mm C3 retrolisthesis on C4. There is multilevel degenerative disc desiccation signal with C3-C7 disc space narrowing. Also C4-C7 opposing endplate degenerative discogenic signal changes, Modic type II. T3 vertebral hemangioma. No acute fracture, subluxation, or abnormal bone marrow signal. Spinal cord is normal in course and caliber without signal abnormality. Normal-appearing craniocervical junction. Axial images at the C2-C3 level negative for disc herniation, spinal canal, or foraminal stenosis. At the C3-C4 level, there is mild broad-based disc osteophyte complex minimally effacing the thecal sac. Mean AP thecal sac diameter is 9 mm. No disc herniation or canal stenosis. Bilateral foraminal stenosis due to uncal spurring. At the C4-C5 level, there is minimal broad-based disc bulge without spinal canal or foraminal compromise. No disc herniation or canal stenosis. At the C5-C6 level, there is minimal broad-based disc bulge minimally effacing the thecal sac. Mean AP thecal sac diameter is 9-10 mm. No disc herniation or canal stenosis. Bilateral foraminal narrowing due to uncal spurring. At the C6-C7 level, there is minimal broad-based disc bulge without spinal canal or foraminal compromise. No disc herniation or canal stenosis. The C7-T1 level is unremarkable. Impression: 1. Minimal/mild multilevel degenerative disc disease detailed level by level. Greatest extent at C3-C4 level where there is minimal C3 retrolisthesis with mild broad-based disc bulge. 3. Negative for disc herniation or spinal canal stenosis. 4. Incidental T3 vertebral hemangioma.
--- NOTE | 2017-01-19 16:41 | XRAY ---
Indication: Multiple falls. Possible TIA. Sagittal, coronal, and axial MRI brain was performed using pre-and post T1, T2, FLAIR, diffusion, and ADC sequences. 12 cc Magnevist contrast used. Comparison: None Age-appropriate global atrophy. Mild periventricular degenerative microvascular ischemia signal bilaterally and lesser degree brainstem tiarra. Diffusion images negative for restricted signal. No acute intracranial hemorrhage, abnormal extra-axial fluid collection, or mass effect. Following gadolinium administration, there is tiny right paramedian frontal lobe venous angioma. No abnormal enhancing intra-or extra-axial mass. Fourth ventricle is midline. No hydrocephalus. 7/8 cranial nerve complex bilaterally symmetric. Normal flow void signal within the major intracerebral circulation. Normal-appearing craniocervical junction and sella turcica. Paranasal sinuses are clear. Impression: 1. No acute intracranial abnormalities or evidence for evolving large vessel territorial stroke. 2. Normal aging brain as evidenced by atrophy and degenerative microvascular ischemia. 3. Post contrast images demonstrates benign right frontal lobe venous angioma.
[2017-01-20] MEDS: Sodium Chloride 0.9% 1000 ML 1,000 ML IV SCH (04:13)
[2017-01-20 04:30] LABS: PTH INTACT 40 pg/mL (15-72)
[2017-01-20 04:31] VITALS: O2SAT 96
[2017-01-20 06:58] VITALS: BP 165/74; PULSE 69
[2017-01-20 08:07] LABS: Vitamin D 25 Hydroxy 17 ng/mL (30-80)
[2017-01-20 09:02] LABS: PH, VENOUS 7.31 (7.35-7.45); Specimen Type Ionized Calcium Plasma
--- NOTE | 2017-01-20 09:11 | PCM.DS ---
Discharge Summary Date of Admission: 01/18/17 10:27 Admitting Physician: FROILAN WYMAN Consults: Consults on Case 01/18/17 11:35 Consult Neurology ROUTINE Primary Care Provider: KIA ANNE MIGDALIA Allergies Allergies Penicillins Allergy (Severe, Verified 01/18/17 10:36) Difficulty Breathing codeine Allergy (Mild, Verified 01/18/17 10:36) Hives aspirin Allergy (Verified 01/18/17 10:36) ibuprofen [From Motrin] Allergy (Verified 01/18/17 10:36) cephalexin [From Keflex] Adverse Reaction (Verified 01/18/17 10:36) Hospital Summary - Hospital Course Hospital Course: Pt admitted with AMS and paresthesias, thought to have possible serotonin syndrome. Her abilify had been increased recently, so was decreased again from 5mg to 2.5 mg daily. SHe is feeling "fine" she says this morning. Her paresthesias are mild in the dorsum of both feet (initally bilat feet and lower legs). She is completely oriented. Cheerful this morning. Has an outpatient neurology appointment. Her daughter is coming to get her, and daughter takes care of her meds at home. [facility] refused to consult due to TINY angioma in the frontal lobe. - Vitals & Intake/Output Vital Signs: Vital Signs Temperature 98.3 F 01/20/17 06:57 Pulse Rate 69 01/20/17 06:57 Respiratory Rate 18 01/20/17 06:57 Blood Pressure 165/74 01/20/17 06:57 O2 Sat by Pulse Oximetry 96 01/20/17 06:57 Oxygen-Last Documented O2 Percentage 2 Liters = 28% Intake & Output: Intake & Output 01/17/17 01/18/17 01/19/17 01/20/17 11:59 11:59 11:59 11:59 Intake Total 3210 2701 Output Total 3950 3000 Balance -740 -299 Weight 70.108 kg - Lab Result Diagrams: 01/18/17 07:46 01/18/17 07:46 Lab Results-Last 24 Hrs: Lab Results-Last 24 Hours 01/18/17 Range/Units 14:00 Vitamin D 25-Hydroxy 17 L (30-80) ng/mL PTH Intact 40 (15-72) pg/mL - Radiology Exams Ordered Rad Exams-Entire Visit: Radiology Procedures Category Date Time Status MRI BRAIN W & W/O CONTRAST [MRI] Routine Exams 01/19/17 08:00 Completed MRI C-SPINE W/O CONTRAST [MRI] Routine Exams 01/19/17 08:00 Completed - Procedures and Test Procedures and Tests throughout Hospitalization: Therapy Orders & Screens 01/18/17 11:45 OT Screen per Nursing Assess Comment: Protocol Order Physician Instructions: Greater than 3 points order OT Admission Screening Reason For Exam: Triggered on Admission Diagnosis: TIA Open Wound/Cellutlitis/Pressure Ulcers: No Acute Fx/ORIF/Change in wt bearing status: No Severe MUSCULOSKELETAL pain: No ADL Dysfunction: Yes Acute CVA w/Hemiparesis/Hemiplegia: No Decreased Functional Mobility/Strength: Yes Sprain/Strain: No Acute Post-op Mobility Dysfunction: No Total Points: 4 PT Screen per Nursing Assess Comment: Protocol Order Physician Instructions: Greater than 3 points order PT Admission Screenin Reason For Exam: Triggered on Admission Diagnosis: TIA Open Wound/Cellutlitis/Pressure Ulcers: No Acute Fx/ORIF/Change in wt bearing status: No Severe MUSCULOSKELETAL pain: No ADL Dysfunction: Yes Acute CVA w/Hemiparesis/Hemiplegia: No Decreased Functional Mobility/Strength: Yes Sprain/Strain: No Acute Post-op Mobility Dysfunction: No Total Points: 4 RT Screen per Nursing Assess Comment: Protocol Order Physician Instructions: Greater than 3 points order RT Admission Screen Reason For Exam: Triggered on Admission Diagnosis: TIA Diagnosis: TIA Pneumonia: No Home O2: No Asthma: Yes CHF: No Home CPAP/BIPAP: No Home Nebs/MDI: Yes Total Points: 9 01/18/17 14:15 neb [Respiratory Nebulizer] Comment: Diagnosis: TIA 01/18/17 14:22 Respiratory MDI Comment: Diagnosis: TIA 01/18/17 21:05 Oxygen NASAL CANNULA 2 lpm Comment: TO KEEP SPO2 >92% Diagnosis: TIA Discharge Exam General Appearance: no apparent distress Neurologic Exam: alert, oriented x 3, cooperative Skin Exam: normal color, warm, dry Eye Exam: eyes nml inspection Neck Exam: normal inspection Respiratory Exam: normal breath sounds, lungs clear, No crackles/rales, No rhonchi, No wheezing Cardiovascular Exam: regular rate/rhythm, normal heart sounds, No murmur Gastrointestinal/Abdomen Exam: soft, No tenderness Extremity Exam: No pedal edema, No swelling Back Exam: normal inspection Final Diagnosis/Problem List - Final Discharge Diagnosis/Problem (1) Altered mental status Current Visit: Yes Status: Resolved Assessment & Plan: Completely resolved. She does have some memory of this. Likely medication side effect/possible serotonin syndrome. D/c home and see neurology outpatient today. (2) Paresthesia Current Visit: Yes Status: Acute Assessment & Plan: Improved. see neurology today. see Dr. Anne in 1 wk. (3) Post traumatic stress disorder (PTSD) Current Visit: Yes Status: Acute Assessment & Plan: see Dr. Anne in 1 wk - continue ability 2.5mg daily - Discharge Disposition: Home, Self-Care Condition: Stable Prescriptions: New Aripiprazole [Abilify] 2.5 mg PO DAILY #7 tablet Continue Lisinopril 10 mg [Zestril 10 MG] 30 mg PO DAILY Albuterol Sulfate [Albuterol Sulfate Hfa] 2 puffs IH BID PRN Citalopram Hydrobromide [ceLEXa] 40 mg PO DAILY Disulfiram [Antabuse] 500 mg PO DAILY Omeprazole 20 MG [Prilosec 20 mg] 40 mg PO DAILY Discontinued Aripiprazole [Abilify] 5 mg PO DAILY Follow up with: KIA ANNE MD [Primary Care Provider] - 01/23/17 9:00 am
[2017-01-20] MEDS: VITAMIN B-1 100 MG PO SCH (09:17)
[2017-01-20] MEDS: Zestril 10 MG PO SCH (09:17)
[2017-01-20] MEDS: FOLATE 1 MG PO SCH (09:17)
[2017-01-20] MEDS: Abilify 10 MG PO SCH (09:17)
[2017-01-20] MEDS: ceLEXa 20 MG PO SCH (09:17)
[2017-01-20] MEDS: THERAGRAN MULTIVITAMIN PO SCH (09:18)
[2017-01-20] MEDS: Protonix 40MG Tablet PO SCH (09:18)
== END 2017-01-20 09:27 | disposition home or self-care (01) ==
LOC: ED 07:14 → MED SURG 10:27
PROVIDERS: ADMIT Internal Medicine; ATTEND Family Medicine
DX: R41.82 Altered mental status, unspecified (principal); R20.9 Unspecified disturbances of skin sensation; I10 Essential (primary) hypertension; H53.40 Unspecified visual field defects; E83.52 Hypercalcemia; J45.909 Unspecified asthma, uncomplicated; E53.8 Deficiency of other specified B group vitamins; M79.673 Pain in unspecified foot; F41.9 Anxiety disorder, unspecified; G40.909 Epilepsy, unspecified, not intractable, without status epilepticus; Z79.899 Other long term (current) drug therapy
CPT/HCPCS: 36000; 36415; 70450; 70553; 71010; 72125; 72141; 80053; 81000; 82306; 82330; 82746; 83735; 83970; 84260; 84484; 85025; 85610; 87086; 90791; 93005; 93041; 93268; 94640; 94760; 96360; 99285; G0378; J2060; P9612; Q3014; A9270-GY

== ENCOUNTER 2017-03-09 11:53 | Emergency (ER) | payer OTHER ==
--- NOTE | 2017-03-09 12:53 | ERPHSYRPT ---
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 Physician History: brought by friendly neighbor who was concerned this am because she had not heard from her since Thursday; stopped in to check on her this am and found her much more confused then usual; thought she had lost her grandchildren;home alone ; thought she was in a different town and not home; complaining of " NOT FEELING WELL" , but no focal complaints other then some nausea at times.; patient a poor historian; doesn; tknow why here or how we can help; wants to go home; doesn't know her LMD or meds Timing/Duration: today Severity of Symptoms-Max: severe Severity of Symptoms-Current: severe Context related to: spouse (suicide victim), son (suicide victim), recent , living circumstances (alone) Suicidal thoughts: other (none noted) Associated Symptoms: anxiety, confused, depressed, frustrated, impaired concentration Previous symptoms: same symptoms as today, recently seen, recently treated Allergies/Adverse Reactions: Penicillins Allergy (Severe, Verified 03/09/17 12:09) Difficulty Breathing codeine Allergy (Mild, Verified 03/09/17 12:09) Hives aspirin Allergy (Verified 03/09/17 12:09) ibuprofen [From Motrin] Allergy (Verified 03/09/17 12:09) cephalexin [From Keflex] Adverse Reaction (Verified 03/09/17 12:09) Home Medications: Albuterol Sulfate [Albuterol Sulfate Hfa] 2 puffs IH BID PRN 09/23/13 [History] Lisinopril 10 mg [Zestril 10 MG] 30 mg PO DAILY 09/23/13 [History] Citalopram Hydrobromide [ceLEXa] 40 mg PO DAILY 05/15/16 [History] Disulfiram [Antabuse] 500 mg PO DAILY 12/29/16 [History] Omeprazole 20 MG [Prilosec 20 mg] 40 mg PO DAILY 12/29/16 [History] Alprazolam 1 mg [Xanax 1 mg] 1 mg PO TID 03/09/17 [History] Gabapentin [Neurontin] 300 mg PO DAILY 03/09/17 [History] Hydrochlorothiazide 25 mg [hydroDIURIL 25 MG] 25 mg PO DAILY 03/09/17 [ History] Hx Tetanus, Diphtheria Vaccination/Date Given: Yes (2016) Hx Influenza Vaccination/Date Given: Yes Hx Pneumococcal Vaccination/Date Given: No Immunizations Up to Date: Yes - Past Medical History Pertinent Past Medical History: Yes Neurological History: Seizures ENT History: No Pertinent History Cardiac History: Hypertension Respiratory History: Asthma Endocrine Medical History: Hypoglycemia Musculoskeletal History: Fractures GI Medical History: Ulcer History: Other Psycho-Social History: Depression, Other Female Reproductive Disorders: No Pertinent History Other Medical History: PTSD - Past Surgical History Past Surgical History: Yes Neuro Surgical History: No Pertinent History Cardiac: No Pertinent History Respiratory: No Pertinent History Gastrointestinal: No Pertinent History Musculoskeletal: Orthopedic Surgery Female Surgical History: Hysterectomy, Section Other Surgical History: RIGHT ARM X2 - Social History Smoking Status: Never smoker Exposure to second hand smoke: No Alcohol Use: None Drug Use: none Patient Lives Alone: Yes Significant Family History: no pertinent family hx - Female History Hx Now: No - Review of Systems Constitutional: No Symptoms Eyes: No Symptoms Ears, Nose, & Throat: No Symptoms Respiratory: No Cough, No Dyspnea, No Wheezing Cardiac: Chest Pain (onset during exam- non-specific at rest), No Palpitations, No Syncope Abdominal/Gastrointestinal: Nausea, No Abdominal Pain, No Vomiting, No Diarrhea , No Constipation Genitourinary Symptoms: No Symptoms Musculoskeletal: No Symptoms Skin: No Symptoms Neurological: Sensory Changes (cant feel her body today), No Dizziness, No Headache, No Paralysis Psychological: Anxiety, Depression, Emotional Lability, Memory Loss, Mood Changes, No Alcohol Abuse, No Drug Abuse, No Suicidal Ideations, No Homicidal Ideations Endocrine: No Symptoms Hematologic/Lymphatic: No Symptoms Immunological/Allergic: No Symptoms - Nursing Vital Signs Nursing Vital Signs: Initial Vital Signs Temperature 98.6 F 03/09/17 12:03 Pulse Rate 120 H 03/09/17 12:03 Respiratory Rate 20 03/09/17 12:03 Blood Pressure 169/98 03/09/17 12:03 O2 Sat by Pulse Oximetry 98 03/09/17 12:03 Pain Scale Pain Intensity 0 - Physical Exam General Appearance: moderate distress, alert, anxiety, thin Eyes, Ears, Nose, Throat Exam: normal ENT inspection, TMs normal, pharynx normal , moist mucous membranes, other (eyes red from crying; vision ok; fundi benign) Neck Exam: normal inspection, non-tender, supple, full range of motion, No meningismus, No carotid bruit, No JVD Respiratory Exam: normal breath sounds, lungs clear, airway intact, No chest tenderness, No respiratory distress Cardiovascular Exam: regular rate/rhythm, normal heart sounds, normal peripheral pulses, tachycardia, capillary refill <2 sec, No murmur, No friction rub Gastrointestinal/Abdominal Exam: soft, normal bowel sounds, No tenderness, No guarding, No rebound, No organomegaly Extremities Exam: normal inspection, normal range of motion, No evidence of injury, No edema, No tenderness Peripheral Pulses: carotid (R): 4+, carotid (L): 4+, femoral (R): 4+, femoral (L ): 4+, dorsalis-pedis (R): 3+, dorsalis-pedis (L): 3+ Neurological Exam: alert, 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 as tested, responds to pain, agitated, anxious, depressed affect, disoriented x 3 (but can remember my name; and her name and friends name; knows phone # and address; doesn't know where she is or date), No normal mood/affect, No calm, No oriented x 3 Appearance: appropriate appearance, neat, impaired insight, impaired remote memory Behavior/Eye Contact/Speech: alert & cooperative, normal speech, avoids eye contact, decreased rate of speech, agitated Thoughts/Hallucinations: phobic Skin Exam: normal color, warm, dry, No rash, No petechiae, No cyanosis SpO2 Interpretation: normal SpO2: 98 Oxygen Delivery: Room Air - Course Nursing assessment & vital signs reviewed: Yes EKG Interpreted by Me: RATE (101), Sinus Tach, NORMAL AXIS, NORMAL INTERVALS, NORMAL QRS, NORMAL ST-T, Other (compared to old EKG done 01-18-17) Rhythm Strip: Rate (102), Sinus Tachycardia Ordered Tests: Active Orders 24 hr Category Date Time Status Accucheck STAT Care 03/09/17 12:39 Active Armhole Feller Handstitching Machine STAT Care 03/09/17 12:39 Active EKG-ER Only STAT Care 03/09/17 12:39 Active Psychiatric Evaluation STAT Care 03/09/17 12:39 Active Re-Check Vital Signs STAT Care 03/09/17 12:39 Active CBC W DIFF Stat Lab 03/09/17 12:50 Completed CMP Stat Lab 03/09/17 12:50 Completed ETHYL ALCOHOL Stat Lab 03/09/17 12:50 Completed Manual Differential NC Stat Lab 03/09/17 12:50 Completed UA W/ MICROSCOPIC Stat Lab 03/09/17 13:45 Completed Urine Triage Profile Stat Lab 03/09/17 13:45 Completed Lab/Rad Data: Laboratory Result Diagrams 03/09/17 12:50 03/09/17 12:50 Laboratory Results 03/09/17 03/09/17 03/09/17 Range/Units 13:45 13:45 12:50 WBC (4.0-10.5) K/mm3 RBC (4.1-5.4) M/mm3 Hgb (12.0-16.0) gm/dl Hct (35-47) % MCV (78-100) fl MCH (26-32) pg MCHC (32-36) g/dl RDW (11.5-14.0) % Plt Count (150-450) K/mm3 MPV (6-9.5) fl Segmented Neutrophils (36.0-66.0) % Lymphocytes (Manual) (24-44) % Monocytes (Manual) (0.0-12.0) % Differential Comment Atypical Lymphocytes % Platelet Estimate (NORMAL) Poikilocytosis Anisocytosis Sodium 141 (136-145) mEq/L Potassium 4.7 (3.5-5.1) mEq/L Chloride 103 (98-107) mEq/L Carbon Dioxide 26.4 (21-32) mEq/L Anion Gap 16.6 H (5-15) MEQ/L BUN 21 H (9-20) mg/dL Creatinine 1.03 (0.55-1.30) mg/dl Estimated GFR 59 ML/MIN Glucose 114 H (70-110) MG/DL Calcium 10.2 H (8.5-10.1) mg/dL Total Bilirubin 0.30 (0.2-1.0) mg/dL AST 17 (15-37) U/L ALT 17 (12-78) U/L Alkaline Phosphatase 114 (46-116) U/L Serum Total Protein 7.7 (6.4-8.2) gm/dL Albumin 3.7 (3.4-5.0) g/dL Ur Collection Type CATH Urine Color YELLOW (YELLOW) Urine Appearance HAZY (CLEAR) Urine pH 8.0 (5-6) Ur Specific [place] 1.010 (1.005-1.025) Urine Protein TRACE (Negative) Urine Ketones TRACE (NEGATIVE) Urine Blood NEGATIVE (0-5) Andrea/ul Urine Nitrite NEGATIVE (NEGATIVE) Urine Bilirubin NEGATIVE (NEGATIVE) Urine Urobilinogen NORMAL (0-1) mg/dL Ur Leukocyte Esterase NEGATIVE (NEGATIVE) Urine Microscopic RBC 2-5 (0-2) /HPF Urine Microscopic WBC 0-2 (0-5) /HPF Ur Epithelial Cells FEW (FEW) /HPF Urine Bacteria FEW (NEGATIVE) /HPF Urine Mucus SLIGHT (NEGATIVE) /HPF Urine Glucose NEGATIVE (NEGATIVE) mg/dL Urine Opiates Level NEG. (NEGATIVE) Ur Methadone NEG. (NEGATIVE) Urine Barbiturates NEG. (NEGATIVE) Ur Phencyclidine (PCP) NEG. (NEGATIVE) Urine Amphetamine NEG. (NEGATIVE) U Benzodiazepine Level NEG. (NEGATIVE) Urine Cocaine NEG. (NEGATIVE) Urine Marijuana (THC) NEG. (NEGATIVE) Ethyl Alcohol < 0.010 (0.00-0.01) % Specimen Received [id number] 03/09/17 Range/Units 12:50 WBC 6.5 (4.0-10.5) K/mm3 RBC 4.57 (4.1-5.4) M/mm3 Hgb 14.1 (12.0-16.0) gm/dl Hct 42.3 (35-47) % MCV 92.6 (78-100) fl MCH 30.9 (26-32) pg MCHC 33.3 (32-36) g/dl RDW 14.0 (11.5-14.0) % Plt Count 419 (150-450) K/mm3 MPV 8.8 (6-9.5) fl Segmented Neutrophils 93 H (36.0-66.0) % Lymphocytes (Manual) 5 L (24-44) % Monocytes (Manual) 1 (0.0-12.0) % Differential Comment ABNORMAL Atypical Lymphocytes 1 % Platelet Estimate NORMAL (NORMAL) Poikilocytosis 1+ Anisocytosis 1+ Sodium (136-145) mEq/L Potassium (3.5-5.1) mEq/L Chloride (98-107) mEq/L Carbon Dioxide (21-32) mEq/L Anion Gap (5-15) MEQ/L BUN (9-20) mg/dL Creatinine (0.55-1.30) mg/dl Estimated GFR ML/MIN Glucose (70-110) MG/DL Calcium (8.5-10.1) mg/dL Total Bilirubin (0.2-1.0) mg/dL AST (15-37) U/L ALT (12-78) U/L Alkaline Phosphatase (46-116) U/L Serum Total Protein (6.4-8.2) gm/dL Albumin (3.4-5.0) g/dL Ur Collection Type Urine Color (YELLOW) Urine Appearance (CLEAR) Urine pH (5-6) Ur Specific [place] (1.005-1.025) Urine Protein (Negative) Urine Ketones (NEGATIVE) Urine Blood (0-5) Andrea/ul Urine Nitrite (NEGATIVE) Urine Bilirubin (NEGATIVE) Urine Urobilinogen (0-1) mg/dL Ur Leukocyte Esterase (NEGATIVE) Urine Microscopic RBC (0-2) /HPF Urine Microscopic WBC (0-5) /HPF Ur Epithelial Cells (FEW) /HPF Urine Bacteria (NEGATIVE) /HPF Urine Mucus (NEGATIVE) /HPF Urine Glucose (NEGATIVE) mg/dL Urine Opiates Level (NEGATIVE) Ur Methadone (NEGATIVE) Urine Barbiturates (NEGATIVE) Ur Phencyclidine (PCP) (NEGATIVE) Urine Amphetamine (NEGATIVE) U Benzodiazepine Level (NEGATIVE) Urine Cocaine (NEGATIVE) Urine Marijuana (THC) (NEGATIVE) Ethyl Alcohol (0.00-0.01) % Specimen Received reviewed - Progress Progress: improved, re-examined Progress Note: 03/09/17 12:58 friend at bedside; consulted Dr Anne about workup- recent MRI and CT negative; no focal findings so will not repeat at this time; reviewed old charts; will get basic labs and check ua for infection ; if no organic cause will get psyche consult and recheck; treatment plan shared with patient and friend; 03/09/17 13:00 03/09/17 13:44 rechecked; CBC and Chem profile ok; EKG oik mild Sinus Tach; UA and tox screen pending; slightly more relaxed; not crying; able to smile; can't remember my name now; friend at bedside; 03/09/17 14:18 U/A and tox screen and alcohol all negative; will get HC Psyche consult 03/09/17 16:26 HC doing Psyche consult; patient cooperating; will continue to monitor and recheck 03/09/17 16:48 HC consult completed and will be able to go home with family or manager respiratory care responsible for medications and she will be observed and monitored closely; Dr Calhoun consulted and notified of HC findings and concurs; DAughter called at work and informed of the instructions and concurred; Patient released to friend with instructions and she acknowledged them; instructions given Discussed with .: Madi (consulted about her condition and release), Other ( HC consult) Counseled pt/family regarding: lab results, diagnosis, need for follow-up - Departure Time of Disposition: 16:58 Departure Disposition: Home Clinical Impression: PTSD (post-traumatic stress disorder), Anxiety Condition: Stable Critical Care Time: Yes Critical Care Time(excluding separately billable procedures): 30-74 minutes Referrals: KIA ANNE MD [Primary Care Provider] - Additional Instructions: family or manager respiratory care needs to control home meds; need to follow up with HC as Out patient; needs to call Dr Anne for follow up appt and recheck; needs to be monitored closely this week until follow up appts. Follow-up with family doctor as directed. Call for appointment. Return if any problems. If you smoke please stop. Call or follow up with your family doctor for assistance if you need it to stop. Please wear your seatbelt when driving. Have a nice day. Thank you for allowing us to participate in your care today. :o) Dr Alexis Flood
[2017-03-09 13:01] LABS: Mean Cell Volume 92.6 fl (78-100); Mean Corpuscular Hemoglobin 30.9 pg (26-32); Mean Platelet Volume 8.8 fl (6-9.5); Platelet Count 419 K/mm3 (150-450); Red Blood Count 4.57 M/mm3 (4.1-5.4); White Blood Count 6.5 K/mm3 (4.0-10.5)
[2017-03-09 13:30] LABS: ALBUMIN 3.7 g/dL (3.4-5.0); ALKALINE PHOSPHATASE 114 U/L (46-116); ANION GAP 16.6 MEQ/L (5-15); BLOOD UREA NITROGEN 21 mg/dL (9-20); CHLORIDE 103 mEq/L (98-107); Carbon Dioxide 26.4 mEq/L (21-32); ETHYL ALCOHOL < 0.010 % (0.00-0.01); Glucose 114 MG/DL (70-110); Potassium 4.7 mEq/L (3.5-5.1); SGOT/AST 17 U/L (15-37); SGPT/ALT 17 U/L (12-78); SODIUM 141 mEq/L (136-145); Total Protein 7.7 gm/dL (6.4-8.2)
[2017-03-09 13:48] LABS: ANISOCYTOSIS 1+; ATYPICAL LYMPHS 1 %; Platelet Estimate NORMAL (NORMAL); Poikilocytosis 1+; Total Cells Counted 100
[2017-03-09 14:06] LABS: Collection Type CATH
[2017-03-09 14:07] LABS: Bilirubin NEGATIVE (NEGATIVE); Blood NEGATIVE Ery/ul (0-5); COMPLETE URINE MICROSCOPIC? YES; Glucose NEGATIVE (NEGATIVE); Leukocyte Esterase NEGATIVE (NEGATIVE); Mucus SLIGHT /HPF (NEGATIVE); WBC 0-2 /HPF (0-5)
[2017-03-09 14:15] LABS: Bacteria FEW /HPF (NEGATIVE); Epithelial Cells FEW /HPF (FEW)
[2017-03-09 14:34] LABS: ADD URINE CULTURE? NO (NO)
[2017-03-09 17:16] VITALS: BP 134/74; PULSE 78; O2SAT 97
== END 2017-03-09 17:17 | disposition home or self-care (01) ==
LOC: ED 11:53
DX: F43.10 Post-traumatic stress disorder, unspecified (principal); F41.9 Anxiety disorder, unspecified
CPT/HCPCS: 36415; 80053; 80307; 81000; 82962; 85025; 90791; 93005; 93041; 99284; G0481; P9612; Q3014

== ENCOUNTER 2017-04-10 13:41 | Emergency (ER) | payer OTHER ==
[2017-04-10] MEDS ORDERED: TYLENOL 325 MG PO ONE (13:58)
[2017-04-10] MEDS ORDERED: TYLENOL 325 MG ONE (14:03)
--- NOTE | 2017-04-10 14:03 | ERPHSYRPT ---
- History of Present Illness Time Seen by Provider: 04/10/17 13:57 Source: patient Physician History: CC: falls Hx: 57 y/o patient of Dr Anne with myasthenia. She falls a lot and reports hurting both ankles. She had the right ankle xrayed already. She has pain and bruising in the right foot. She has pain in left ankle and foot. They just given out. She uses a cane. Denies other injury. She takes APAP. She is allergic to motrin. She is scared to take other pain meds. Occurred: other (frequently) Allergies/Adverse Reactions: Penicillins Allergy (Severe, Verified 04/10/17 14:08) Difficulty Breathing codeine Allergy (Mild, Verified 04/10/17 14:08) Hives aspirin Allergy (Verified 04/10/17 14:08) ibuprofen [From Motrin] Allergy (Verified 04/10/17 14:08) cephalexin [From Keflex] Adverse Reaction (Verified 04/10/17 14:08) Home Medications: Albuterol Sulfate [Albuterol Sulfate Hfa] 2 puffs IH BID PRN 09/23/13 [History] Lisinopril 10 mg [Zestril 10 MG] 30 mg PO DAILY 09/23/13 [History] Citalopram Hydrobromide [ceLEXa] 40 mg PO DAILY 05/15/16 [History] Disulfiram [Antabuse] 500 mg PO DAILY 12/29/16 [History] Omeprazole 20 MG [Prilosec 20 mg] 40 mg PO DAILY 12/29/16 [History] Alprazolam 1 mg [Xanax 1 mg] 1 mg PO TID 03/09/17 [History] Gabapentin [Neurontin] 300 mg PO DAILY 03/09/17 [History] Hydrochlorothiazide 25 mg [hydroDIURIL 25 MG] 25 mg PO DAILY 03/09/17 [ History] Hx Tetanus, Diphtheria Vaccination/Date Given: Yes (2016) Hx Influenza Vaccination/Date Given: Yes Hx Pneumococcal Vaccination/Date Given: No - Review of Systems Constitutional: No Symptoms Eyes: No Symptoms Respiratory: No Dyspnea Cardiac: No Chest Pain Abdominal/Gastrointestinal: No Abdominal Pain Musculoskeletal: Fall, Joint Pain (ankles), No Back Pain, No Neck Pain All Other Systems: Reviewed and Negative - Past Medical History Pertinent Past Medical History: Yes Neurological History: Seizures ENT History: No Pertinent History Cardiac History: Hypertension Respiratory History: Asthma Endocrine Medical History: Hypoglycemia Musculoskeletal History: Fractures GI Medical History: Ulcer History: Other Psycho-Social History: Depression, Other Female Reproductive Disorders: No Pertinent History Other Medical History: PTSD - Past Surgical History Past Surgical History: Yes Neuro Surgical History: No Pertinent History Cardiac: No Pertinent History Respiratory: No Pertinent History Gastrointestinal: No Pertinent History Musculoskeletal: Orthopedic Surgery Female Surgical History: Hysterectomy, Section Other Surgical History: RIGHT ARM X2 - Social History Smoking Status: Never smoker Exposure to second hand smoke: No Alcohol Use: None Drug Use: none Patient Lives Alone: Yes Significant Family History: no pertinent family hx - Female History Hx Now: No - Nursing Vital Signs Nursing Vital Signs: Initial Vital Signs Temperature 99.1 F 04/10/17 14:02 Pulse Rate 78 04/10/17 14:02 Respiratory Rate 20 04/10/17 14:02 Blood Pressure 101/66 04/10/17 14:02 O2 Sat by Pulse Oximetry 99 04/10/17 14:02 Pain Scale Pain Intensity 10 - Physical Exam General Appearance: alert Eyes, Ears, Nose, Throat Exam: moist mucous membranes Neck Exam: normal inspection, non-tender, supple Cardiovascular/Respiratory Exam: regular rate/rhythm Neuro/Tendon Exam: normal sensation, normal motor functions Mental Status Exam: alert, oriented x 3, cooperative Skin Exam: warm, dry Comments: right foot specialist and has bruising. Left ankle and foot tenderness without bruising. Pulses intact. - Course Nursing assessment & vital signs reviewed: Yes - Radiology Exams left foot/ankle, right foot X-ray Interpretation: Teleradiologist Report, No Fracture Ordered Tests: Active Orders 24 hr Category Date Time Status Calvin Bandage Application -[facility] STAT Care 04/10/17 15:42 Active Calvin Bandage Application -[facility] STAT Care 04/10/17 15:44 Active Cold Application STAT Care 04/10/17 13:58 Active ANKLE (3 VIEWS) Stat Exams 04/10/17 13:57 Completed FOOT (MINIMUM 3 VIEWS) Stat Exams 04/10/17 13:57 Completed FOOT (MINIMUM 3 VIEWS) Stat Exams 04/10/17 13:57 Completed Medication Summary Discontinued Medications Generic Name Dose Route Start Last Admin Trade Name Freq PRN Reason Stop Dose Admin Acetaminophen 650 mg 04/10/17 13:58 04/10/17 14:04 Tylenol 325 Mg PO 04/10/17 13:59 650 mg STAT ONE Administration Acetaminophen Confirm 04/10/17 14:03 Tylenol 325 Mg Administered 04/10/17 14:04 Dose 650 mg .ROUTE .STK-MED ONE - Progress Progress Note: 04/10/17 15:47 Advised continue APAP. Will use calvin wrap. She has cane. May consider walker. She has family support but does not elave h ome due to risk of falling. She is interested in HHC/PT so consulted [facility]. She has follow up with Dr anne next week. Counseled pt/family regarding: diagnosis, need for follow-up, rad results - Departure Time of Disposition: 15:47 Departure Disposition: Home Clinical Impression: Falls frequently, Contusion of right foot, Left ankle sprain Condition: Stable Critical Care Time: No Referrals: KIA ANNE MD [Primary Care Provider] - Instructions: Prevent Falls, Contusion, Choose and Use a Walker, Choose and Use a Cane Additional Instructions: Calvin wraps for foot/ankle. Use walker or cane to prevent falls. Follow up next week with Dr Anne. Consider HHC/PT.
--- NOTE | 2017-04-10 14:46 | XRAY ---
Indication: Pain following falling twice. Comparison: None 3 nonweightbearing views of the left foot demonstrates posterior talus accessory ossicle and small plantar heel spur. No other bony, articular, or soft tissue abnormalities.
--- NOTE | 2017-04-10 14:48 | XRAY ---
Indication: Pain following falling twice. Comparison: None 3 nonweightbearing views of the right foot demonstrates minimal first MTP degenerative changes and small plantar heel spur. No other bony, articular, or soft tissue abnormalities.
--- NOTE | 2017-04-10 14:51 | XRAY ---
Indication: Pain following falling twice. Comparison: None 3 views of the left ankle demonstrates posterior talus accessory ossicle and small plantar heel spur. No other bony, articular, or soft tissue abnormalities.
[2017-04-10 15:10] VITALS: O2SAT 100
[2017-04-10 16:09] VITALS: BP 124/60; PULSE 76
== END 2017-04-10 16:09 | disposition home or self-care (01) ==
LOC: ED 13:41
DX: S90.31XA Contusion of right foot, initial encounter (principal); S93.402A Sprain of unspecified ligament of left ankle, initial encounter; Z91.81 History of falling; G70.9 Myoneural disorder, unspecified; I10 Essential (primary) hypertension; E16.2 Hypoglycemia, unspecified
CPT/HCPCS: 73610; 73630; 99284; A9270-GY

== ENCOUNTER 2017-05-04 13:08 | Emergency (ER) | payer OTHER ==
--- NOTE | 2017-05-04 14:28 | ERPHSYRPT ---
- History of Present Illness Time Seen by Provider: 05/04/17 14:13 Source: patient, family, EMS Patient Subjective Stated Complaint: PT DAUGHTER REPORTS PT HAS DECREASED MENTAL STATUS-STATES THAT HER MOTHER IS NOT RESPONDING TO HER-STATES IT WAS VERY DIFFICUT TO WAKE HER UP-STATES THAT SHE WAS MOANING IN HER SLEEP BUT IS NOW AWAKE Triage Nursing Assessment: PT PINK WARM ET DRY-EYES OPEN-NOT RESPONDING TO ANY QUESTIONS-LUNGS CLEAR-SLIGHT CONGESTION NOTED-PUPILS SLUGGISH-DAUGHTER REGULATES MOTHERS MEDICINES Physician History: The patient is a 57-year-old female brought in by ambulance from home accompanied by her daughter who complains that her mother did not get up from her bed at 8:30 this morning. Her daughter thought her mother just wanted to sleep more. The daughter returned at 12:30 to find her mother still in bed. At that time her mother was not speaking much or moving. The mother denies any pain. The mother has a recent diagnosis this summer of myasthenia gravis and has been placed on prednisone and other medications for myasthenia gravis. The mother has difficulty remembering things. The daughter provides for her in a small [id number] apartment behind her house. The patient also has a past medical history of hypertension, depression, and GERD. Timing/Duration: today Severity: moderate Modifying Factors: Improves With: movement Associated Symptoms: malaise Allergies/Adverse Reactions: Penicillins Allergy (Severe, Verified 05/04/17 13:25) Difficulty Breathing codeine Allergy (Mild, Verified 05/04/17 13:25) Hives aspirin Allergy (Verified 05/04/17 13:25) ibuprofen [From Motrin] Allergy (Verified 05/04/17 13:25) cephalexin [From Keflex] Adverse Reaction (Verified 05/04/17 13:25) Home Medications: Lisinopril 10 mg [Zestril 10 MG] 30 mg PO DAILY 09/23/13 [History] Citalopram Hydrobromide [ceLEXa] 40 mg PO DAILY 05/15/16 [History] Omeprazole 20 MG [Prilosec 20 mg] 40 mg PO DAILY 12/29/16 [History] Gabapentin [Neurontin] 300 mg PO DAILY 03/09/17 [History] Hydrochlorothiazide 25 mg [hydroDIURIL 25 MG] 25 mg PO DAILY 03/09/17 [ History] Hx Tetanus, Diphtheria Vaccination/Date Given: Yes (2016) Hx Influenza Vaccination/Date Given: Yes Hx Pneumococcal Vaccination/Date Given: No Immunizations Up to Date: Yes - Review of Systems Constitutional: No Fever, No Chills Eyes: No Symptoms Ears, Nose, & Throat: No Symptoms Respiratory: No Cough, No Dyspnea Cardiac: No Chest Pain, No Edema, No Syncope Abdominal/Gastrointestinal: No Abdominal Pain, No Nausea, No Vomiting, No Diarrhea Genitourinary Symptoms: No Dysuria Musculoskeletal: No Back Pain, No Neck Pain Skin: No Rash Neurological: Lethargy, Paralysis, Tics Psychological: No Symptoms Endocrine: No Symptoms Hematologic/Lymphatic: No Symptoms Immunological/Allergic: No Symptoms All Other Systems: Reviewed and Negative - Past Medical History Pertinent Past Medical History: Yes Neurological History: Seizures ENT History: No Pertinent History Cardiac History: Hypertension Respiratory History: Asthma Endocrine Medical History: Hypoglycemia Musculoskeletal History: Fractures GI Medical History: Ulcer History: Other Psycho-Social History: Depression, Other Female Reproductive Disorders: No Pertinent History Other Medical History: PTSD - Past Surgical History Past Surgical History: Yes Neuro Surgical History: No Pertinent History Cardiac: No Pertinent History Respiratory: No Pertinent History Gastrointestinal: No Pertinent History Musculoskeletal: Orthopedic Surgery Female Surgical History: Hysterectomy, Section Other Surgical History: RIGHT ARM X2 - Social History Smoking Status: Never smoker Exposure to second hand smoke: No Alcohol Use: None Drug Use: none Patient Lives Alone: Yes Significant Family History: no pertinent family hx - Female History Hx Now: No - Nursing Vital Signs Nursing Vital Signs: Initial Vital Signs Temperature 98.4 F 05/04/17 13:14 Pulse Rate 71 05/04/17 13:14 Respiratory Rate 18 05/04/17 13:14 Blood Pressure 123/59 05/04/17 13:14 O2 Sat by Pulse Oximetry 95 05/04/17 13:14 Pain Scale Pain Intensity 0 - Physical Exam General Appearance: moderate distress, lethargy Eye Exam: PERRL/EOMI, eyes nml inspection Ears, Nose, Throat Exam: normal ENT inspection, TMs normal, pharynx normal, moist mucous membranes Neck Exam: normal inspection, non-tender, supple, full range of motion Respiratory Exam: normal breath sounds, lungs clear, No respiratory distress Cardiovascular Exam: regular rate/rhythm, normal heart sounds, normal peripheral pulses Gastrointestinal/Abdomen Exam: soft, normal bowel sounds, No tenderness, No mass Pelvic Exam: not done Rectal Exam: not done Back Exam: normal inspection, normal range of motion, No CVA tenderness, No vertebral tenderness Neurologic Exam: other (The patient is lying on her back in bed with her eyes closed. After gentle coaxing, the patient will open her eyes to command. She will answer questions with one-word answers. She can slowly move both her left and right arms. She moves her right leg. She is either unable to or does not want to move her left leg. She has tic movements in the upper and lower extremities. She is hyperreflexic at the patella.) Skin Exam: normal color, warm, dry, No rash Lymphatic Exam: No adenopathy SpO2 Interpretation: normal SpO2: 95 Oxygen Delivery: Room Air - Course EKG Interpreted by Me: RATE, Sinus Rhythm, NORMAL INTERVALS, NORMAL QRS, NORMAL ST-T - CT Exams Head CT Interpretation: Negative (per Dr Wan) Ordered Tests: Active Orders 24 hr Category Date Time Status EKG-ER Only STAT Care 05/04/17 14:36 Active IV Insertion STAT Care 05/04/17 15:07 Active HEAD WITHOUT CONTRAST [CT] Stat Exams 05/04/17 14:36 Completed CBC W DIFF Stat Lab 05/04/17 14:00 Completed CMP Stat Lab 05/04/17 14:00 Completed CULTURE,URINE Stat Lab 05/04/17 15:00 Received Lactic Acid Stat Lab 05/04/17 Ordered Manual Differential NC Stat Lab 05/04/17 14:00 Completed PROTIME WITH INR Stat Lab 05/04/17 14:00 Completed TROPONIN Q3H Lab 05/04/17 14:00 Completed TROPONIN Q3H Lab 05/04/17 17:45 Ordered TROPONIN Q3H Lab 05/04/17 20:45 Ordered TROPONIN Q3H Lab 05/04/17 23:45 Ordered TROPONIN Q3H Lab 05/05/17 02:45 Ordered UA W/ MICROSCOPIC Stat Lab 05/04/17 15:00 Completed Medication Summary Discontinued Medications Generic Name Dose Route Start Last Admin Trade Name Freq PRN Reason Stop Dose Admin Sodium Chloride 1,000 mls @ 999 mls/hr 05/04/17 15:07 05/04/17 15:11 Sodium Chloride 0.9% 1000 Ml IV 05/04/17 16:07 999 mls/hr .Q1H1M STA Administration Sodium Chloride Confirm 05/04/17 15:10 Sodium Chloride 0.9% 1000 Ml Administered 05/04/17 15:11 Dose 1,000 mls @ ud .ROUTE .STK-MED ONE Lab/Rad Data: Laboratory Result Diagrams 05/04/17 14:00 05/04/17 14:00 Laboratory Results 05/04/17 05/04/17 05/04/17 Range/Units 15:00 14:00 14:00 WBC (4.0-10.5) K/mm3 RBC (4.1-5.4) M/mm3 Hgb (12.0-16.0) gm/dl Hct (35-47) % MCV (78-100) fl MCH (26-32) pg MCHC (32-36) g/dl RDW (11.5-14.0) % Plt Count (150-450) K/mm3 MPV (6-9.5) fl INR 0.96 (0.8-3.0) Sodium (136-145) mEq/L Potassium (3.5-5.1) mEq/L Chloride (98-107) mEq/L Carbon Dioxide (21-32) mEq/L Anion Gap (5-15) MEQ/L BUN (9-20) mg/dL Creatinine (0.55-1.30) mg/dl Estimated GFR ML/MIN Glucose (70-110) MG/DL Calcium (8.5-10.1) mg/dL Total Bilirubin (0.2-1.0) mg/dL AST (15-37) U/L ALT (12-78) U/L Alkaline Phosphatase (46-116) U/L Troponin I < 0.017 (0.000-0.056) ng/ml Serum Total Protein (6.4-8.2) gm/dL Albumin (3.4-5.0) g/dL Ur Collection Type CATH Urine Color YELLOW (YELLOW) Urine Appearance HAZY (CLEAR) Urine pH 5.0 (5-6) Ur Specific [place] 1.025 (1.005-1.025) Urine Protein TRACE (Negative) Urine Ketones TRACE (NEGATIVE) Urine Blood 250 (0-5) Andrea/ul Urine Nitrite NEGATIVE (NEGATIVE) Urine Bilirubin SMALL (NEGATIVE) Urine Urobilinogen 1 (0-1) mg/dL Ur Leukocyte Esterase TRACE (NEGATIVE) Urine Microscopic RBC 15-25 (0-2) /HPF Urine Microscopic WBC 2-5 (0-5) /HPF Ur Epithelial Cells FEW (FEW) /HPF Amorphous Crystals MODERATE (NEGATIVE) /HPF Urine Bacteria FEW (NEGATIVE) /HPF Hyaline Casts >50 (0-2) /LPF Urine Mucus SLIGHT (NEGATIVE) /HPF Urine Glucose 100 (NEGATIVE) mg/dL Specimen Received 05/04/17 1430 05/04/17 05/04/17 Range/Units 14:00 14:00 WBC 10.5 (4.0-10.5) K/mm3 RBC 4.25 (4.1-5.4) M/mm3 Hgb 13.3 (12.0-16.0) gm/dl Hct 39.4 (35-47) % MCV 92.7 (78-100) fl MCH 31.3 (26-32) pg MCHC 33.8 (32-36) g/dl RDW 15.2 H (11.5-14.0) % Plt Count 165 (150-450) K/mm3 MPV 10.9 H (6-9.5) fl INR (0.8-3.0) Sodium 137 (136-145) mEq/L Potassium 5.6 H (3.5-5.1) mEq/L Chloride 103 (98-107) mEq/L Carbon Dioxide 20.0 L (21-32) mEq/L Anion Gap 20.0 H (5-15) MEQ/L BUN 91 H (9-20) mg/dL Creatinine 6.76 H (0.55-1.30) mg/dl Estimated GFR 7 ML/MIN Glucose 122 H (70-110) MG/DL Calcium 8.7 (8.5-10.1) mg/dL Total Bilirubin 0.30 (0.2-1.0) mg/dL AST 127 H (15-37) U/L ALT 32 (12-78) U/L Alkaline Phosphatase 109 (46-116) U/L Troponin I (0.000-0.056) ng/ml Serum Total Protein 6.3 L (6.4-8.2) gm/dL Albumin 3.1 L (3.4-5.0) g/dL Ur Collection Type Urine Color (YELLOW) Urine Appearance (CLEAR) Urine pH (5-6) Ur Specific [place] (1.005-1.025) Urine Protein (Negative) Urine Ketones (NEGATIVE) Urine Blood (0-5) Andrea/ul Urine Nitrite (NEGATIVE) Urine Bilirubin (NEGATIVE) Urine Urobilinogen (0-1) mg/dL Ur Leukocyte Esterase (NEGATIVE) Urine Microscopic RBC (0-2) /HPF Urine Microscopic WBC (0-5) /HPF Ur Epithelial Cells (FEW) /HPF Amorphous Crystals (NEGATIVE) /HPF Urine Bacteria (NEGATIVE) /HPF Hyaline Casts (0-2) /LPF Urine Mucus (NEGATIVE) /HPF Urine Glucose (NEGATIVE) mg/dL Specimen Received - Progress Progress: unchanged Discussed with : Other (Dr Harrington) Counseled pt/family regarding: lab results, diagnosis, rad results - Departure Time of Disposition: 16:30 Departure Disposition: Transfer (transfer to [facility] ER per DR Harrington) Clinical Impression: Altered mental status, Renal failure Condition: Fair Critical Care Time: No Referrals: KIA ANNE MD [Primary Care Provider] - Additional Instructions: You have altered mental status and acute renal failure. You're being transferred to regional ER per Dr. Harrington.
[2017-05-04 14:46] LABS: INR 0.96 (0.8-3.0); PROTIME 10.7 SECONDS (9.95-12.35)
[2017-05-04 14:55] LABS: ALBUMIN 3.1 g/dL (3.4-5.0); BILIRUBIN,TOTAL 0.3 mg/dL (0.2-1.0); Total Protein 6.3 gm/dL (6.4-8.2)
[2017-05-04 14:56] LABS: Potassium 5.6 mEq/L (3.5-5.1)
[2017-05-04] MEDS ORDERED: Sodium Chloride 0.9% 1000 ML 1,000 ML IV STA (15:07)
--- NOTE | 2017-05-04 15:08 | XRAY ---
Indication: Altered mental status. Multiple contiguous axial images obtained through the head without contrast. Comparison: January 18, 2017. Again normal appearing brain parenchyma, ventricles, and bony calvarium. Visualized paranasal sinuses and mastoid air cells are clear. Impression: Stable normal CT head without contrast exam. CTDI 60.11
[2017-05-04] MEDS ORDERED: Sodium Chloride 0.9% 1000 ML 1,000 ML ONE (15:10)
[2017-05-04 15:17] LABS: Mean Cell Volume 92.7 fl (78-100); Mean Corpuscular Hemoglobin 31.3 pg (26-32); Mean Platelet Volume 10.9 fl (6-9.5); Platelet Count 165 K/mm3 (150-450); Red Blood Count 4.25 M/mm3 (4.1-5.4); Red Cell Distribution Width 15.2 % (11.5-14.0); White Blood Count 10.5 K/mm3 (4.0-10.5)
[2017-05-04 15:41] LABS: Collection Type CATH
[2017-05-04 15:42] LABS: Leukocyte Esterase TRACE (NEGATIVE)
[2017-05-04 15:43] LABS: Bilirubin SMALL (NEGATIVE); Blood 250 Ery/ul (0-5); COMPLETE URINE MICROSCOPIC? YES; Glucose 100 mg/dL (NEGATIVE)
[2017-05-04 15:44] LABS: Hyaline Casts >50 /LPF (0-2); Mucus SLIGHT /HPF (NEGATIVE)
[2017-05-04 15:45] LABS: Bacteria FEW /HPF (NEGATIVE); Epithelial Cells FEW /HPF (FEW)
[2017-05-04 16:01] VITALS: BP 131/79; PULSE 70
[2017-05-04 16:03] LABS: ADD URINE CULTURE? YES (NO)
[2017-05-04 16:48] LABS: BAND 1 % (0.0-2.0); Total Cells Counted 100
[2017-05-04 17:06] VITALS: O2SAT 97
[2017-05-04 17:09] LABS: Platelet Estimate NORMAL (NORMAL)
== END 2017-05-04 17:07 | disposition short-term general hospital (02) ==
LOC: ED 13:08
DX: R41.82 Altered mental status, unspecified (principal); N19 Unspecified kidney failure; I10 Essential (primary) hypertension; F32.9 Major depressive disorder, single episode, unspecified; K21.9 Gastro-esophageal reflux disease without esophagitis; Z79.899 Other long term (current) drug therapy
CPT/HCPCS: 36000; 36415; 70450; 80053; 81000; 84484; 85025; 85610; 87086; 93005; 96360; 99285

== ENCOUNTER 2017-07-15 19:48 | Emergency (ER) | payer OTHER ==
[2017-07-15] MEDS ORDERED: BENADRYL 50 MG/ML IV ONE (19:58)
[2017-07-15] MEDS ORDERED: Pepcid 20 MG VIAL IV ONE ×2 (19:58→20:07)
[2017-07-15] MEDS ORDERED: solu-CORTEF 100MG IV ONE (19:59)
[2017-07-15] MEDS ORDERED: Sodium Chloride 0.9% 1000 ML 1,000 ML IV SCH (20:00)
--- NOTE | 2017-07-15 20:06 | ERPHSYRPT ---
- History of Present Illness Time Seen by Provider: 07/15/17 19:53 Source: patient Physician History: CC: Itching Hx: 57 y/o patient of Dr Anne and Dr Mancilla. She has myasthenia. She started oxcarbazepine and cellcept today. After first dose earlier in the day she had some mild itching. After this evening dose she had severe itching, red hives especially on her back. No tongue swelling or throat closing. No vomiting or diarrhea. No abd or chest pain. She had prior allergic reaction to PCN at a young age. No other known exposures today. Itching is rather severe. No swelling. Timing/Duration: today Severity: severe Allergies/Adverse Reactions: Penicillins Allergy (Severe, Verified 07/15/17 20:06) Difficulty Breathing codeine Allergy (Mild, Verified 07/15/17 20:06) Hives aspirin Allergy (Verified 07/15/17 20:06) ibuprofen [From Motrin] Allergy (Verified 07/15/17 20:06) cephalexin [From Keflex] Adverse Reaction (Verified 07/15/17 20:06) Home Medications: Citalopram Hydrobromide [ceLEXa] 40 mg PO DAILY 05/15/16 [History] Omeprazole 20 MG [Prilosec 20 mg] 20 mg PO DAILY 12/29/16 [History] Aripiprazole [Abilify] 2 mg PO DAILY 07/15/17 [History] Folic Acid 1 mg [Folate 1 mg] 1 mg PO DAILY 07/15/17 [History] Furosemide 40 mg [Lasix 40 MG] 40 mg PO BID 07/15/17 [History] Mycophenolate Mofetil [Cellcept] 500 mg PO BID 07/15/17 [History] Ondansetron HCl [Zofran] 4 mg PO Q6H PRN PRN 07/15/17 [History] Oxcarbazepine 300 mg [Trileptal 300 MG Tablet] 300 mg PO TID 07/15/17 [ History] Potassium Chloride 10 Meq Tab* [Klor Con 10 MEQ] 10 meq PO TID 07/15/17 [ History] Prednisone 20 mg [Deltasone 20 mg] 40 mg PO DAILY 07/15/17 [History] Pyridostigmine [place] 60 mg PO TID 07/15/17 [History] Hx Tetanus, Diphtheria Vaccination/Date Given: Yes (2016) Hx Influenza Vaccination/Date Given: Yes Hx Pneumococcal Vaccination/Date Given: No - Review of Systems Constitutional: No Fever, No Chills Eyes: No Vision Changes Ears, Nose, & Throat: No Symptoms, No Throat Swelling, No Stridor Respiratory: No Cough, No Dyspnea Cardiac: No Chest Pain Abdominal/Gastrointestinal: No Abdominal Pain, No Vomiting, No Diarrhea Skin: Pruritis, Rash Neurological: No Dizziness, No Focal Weakness, No Headache, No Parasthesia All Other Systems: Reviewed and Negative - Past Medical History Pertinent Past Medical History: Yes Neurological History: Seizures ENT History: No Pertinent History Cardiac History: Hypertension Respiratory History: Asthma Endocrine Medical History: Hypoglycemia Musculoskeletal History: Fractures GI Medical History: Ulcer History: Other Psycho-Social History: Depression, Other Female Reproductive Disorders: No Pertinent History Other Medical History: PTSD - Past Surgical History Past Surgical History: Yes Neuro Surgical History: No Pertinent History Cardiac: No Pertinent History Respiratory: No Pertinent History Gastrointestinal: No Pertinent History Musculoskeletal: Orthopedic Surgery Female Surgical History: Hysterectomy, Section Other Surgical History: RIGHT ARM X2 - Social History Smoking Status: Never smoker Exposure to second hand smoke: No Alcohol Use: None Drug Use: none Patient Lives Alone: Yes Significant Family History: no pertinent family hx - Nursing Vital Signs Nursing Vital Signs: Initial Vital Signs Temperature 98.6 F 07/15/17 19:56 Pulse Rate 76 07/15/17 19:56 Respiratory Rate 20 07/15/17 19:56 Blood Pressure 161/91 07/15/17 19:56 O2 Sat by Pulse Oximetry 98 07/15/17 19:56 Pain Scale Pain Intensity 0 - Physical Exam General Appearance: alert Eye Exam: PERRL/EOMI Ears, Nose, Throat Exam: normal ENT inspection, moist mucous membranes Neck Exam: normal inspection, non-tender, supple Respiratory Exam: normal breath sounds, lungs clear, No wheezing Cardiovascular Exam: regular rate/rhythm Gastrointestinal/Abdomen Exam: soft, No tenderness, No distention Extremity Exam: normal inspection, normal range of motion, No calf tenderness, No pedal edema Neurologic Exam: alert, oriented x 3, cooperative, sensation nml, No motor deficits Skin Exam: warm, dry, rash (urticarial on her back mostly, angry red) SpO2 Interpretation: normal SpO2: 98 Oxygen Delivery: Room Air - Course Nursing assessment & vital signs reviewed: Yes Ordered Tests: Active Orders 24 hr Category Date Time Status IV Insertion STAT Care 07/15/17 19:58 Active CBC W DIFF Stat Lab 07/15/17 20:11 Completed CMP Stat Lab 07/15/17 20:11 Completed Medication Summary Generic Name Dose Route Start Last Admin Trade Name Freq PRN Reason Stop Dose Admin Sodium Chloride 1,000 mls @ 100 mls/hr 07/15/17 20:00 07/15/17 20:09 Sodium Chloride 0.9% 1000 Ml IV 08/14/17 19:59 100 mls/hr .Q10H AGATHA Administration Discontinued Medications Generic Name Dose Route Start Last Admin Trade Name Freq PRN Reason Stop Dose Admin Diphenhydramine HCl 25 mg 07/15/17 19:58 07/15/17 20:09 Benadryl 50 Mg/Ml IV 07/15/17 19:59 25 mg STAT ONE Administration Diphenhydramine HCl Confirm 07/15/17 20:07 Benadryl 50 Mg/Ml Administered 07/15/17 20:08 Dose 50 mg .ROUTE .STK-MED ONE Famotidine 20 mg 07/15/17 19:58 07/15/17 20:10 Pepcid 20 Mg Vial IV 07/15/17 19:59 20 mg STAT ONE Administration Famotidine Confirm 07/15/17 20:07 Pepcid 20 Mg Vial Administered 07/15/17 20:08 Dose 20 mg IV .STK-MED ONE Hydrocortisone Sodium Succinate 100 mg 07/15/17 19:59 07/15/17 20:10 Solu-Cortef 100mg IV 07/15/17 20:00 100 mg STAT ONE Administration Hydrocortisone Sodium Succinate Confirm 07/15/17 20:07 Solu-Cortef 100mg Administered 07/15/17 20:08 Dose 100 mg .ROUTE .STK-MED ONE Lab/Rad Data: Laboratory Result Diagrams 07/15/17 20:11 07/15/17 20:11 Laboratory Results 07/15/17 07/15/17 Range/Units 20:11 20:11 WBC 9.6 (4.0-10.5) K/mm3 RBC 4.55 (4.1-5.4) M/mm3 Hgb 13.4 (12.0-16.0) gm/dl Hct 42.2 (35-47) % MCV 92.7 (78-100) fl MCH 29.5 (26-32) pg MCHC 31.8 L (32-36) g/dl RDW 13.7 (11.5-14.0) % Plt Count 278 (150-450) K/mm3 MPV 9.6 H (6-9.5) fl Gran % 75.3 H (36.0-66.0) % Lymphocytes % 18.6 L (24.0-44.0) % Monocytes % 5.7 (0.0-12.0) % Eosinophils % 0.2 (0.00-5.0) % Basophils % 0.2 (0.0-0.4) % Basophils # 0.02 (0-0.4) Sodium 139 (136-145) mEq/L Potassium 3.7 (3.5-5.1) mEq/L Chloride 99 (98-107) mEq/L Carbon Dioxide 29.5 (21-32) mEq/L Anion Gap 14.6 (5-15) MEQ/L BUN 25 H (9-20) mg/dL Creatinine 1.67 H (0.55-1.30) mg/dl Estimated GFR 33 ML/MIN Glucose 115 H (70-110) MG/DL Calcium 9.0 (8.5-10.1) mg/dL Total Bilirubin 0.30 (0.2-1.0) mg/dL AST 15 (15-37) U/L ALT 22 (12-78) U/L Alkaline Phosphatase 106 (46-116) U/L Serum Total Protein 7.1 (6.4-8.2) gm/dL Albumin 3.8 (3.4-5.0) g/dL - Progress Progress Note: 07/15/17 21:50 Creat 1.6 which is stable. ITching gone after meds. Advised stop these two new meds and call Dr Mancilla in AM. Will use benadryl. Counseled pt/family regarding: lab results, diagnosis, need for follow-up - Departure Time of Disposition: 21:51 Departure Disposition: Home Clinical Impression: Acute allergic reaction Qualifiers: Encounter type: initial encounter Qualified Code(s): T78.40XA - Allergy, unspecified, initial encounter Condition: Stable Critical Care Time: No Referrals: KIA ANNE MD [Primary Care Provider] - Instructions: Adverse Drug Reaction -- Allergic Additional Instructions: Stop cellcept and oxcarbazepine. Benadryl 50mg every 6 hours for couple of days. Call Dr Mancilla with report in AM and obtain further instructions. Return for trouble breathing, swelling or concerns. Stay with family tonite. No driving while taking benadryl.
[2017-07-15] MEDS ORDERED: BENADRYL 50 MG/ML ONE (20:07)
[2017-07-15] MEDS ORDERED: Sodium Chloride 0.9% 1000 ML 1,000 ML ONE (20:07)
[2017-07-15] MEDS ORDERED: solu-CORTEF 100MG ONE (20:07)
[2017-07-15 20:13] LABS: BASOPHIL % 0.2 % (0.0-0.4); Eosinophil % 0.2 % (0.00-5.0); Granulocytes % 75.3 % (36.0-66.0); Lymphocytes % 18.6 % (24.0-44.0); Mean Cell Volume 92.7 fl (78-100); Mean Corpuscular Hemoglobin 29.5 pg (26-32); Mean Platelet Volume 9.6 fl (6-9.5); Monocytes % 5.7 % (0.0-12.0); Platelet Count 278 K/mm3 (150-450); Red Blood Count 4.55 M/mm3 (4.1-5.4); Red Cell Distribution Width 13.7 % (11.5-14.0); White Blood Count 9.6 K/mm3 (4.0-10.5)
[2017-07-15 20:34] LABS: ALBUMIN 3.8 g/dL (3.4-5.0); ANION GAP 14.6 MEQ/L (5-15); BILIRUBIN,TOTAL 0.3 mg/dL (0.2-1.0); Carbon Dioxide 29.5 mEq/L (21-32); Potassium 3.7 mEq/L (3.5-5.1); Total Protein 7.1 gm/dL (6.4-8.2)
[2017-07-15 21:09] VITALS: PULSE 65
[2017-07-15 21:27] VITALS: BP 131/73
[2017-07-15 21:53] VITALS: O2SAT 98
== END 2017-07-15 22:09 | disposition home or self-care (01) ==
LOC: ED 19:48
DX: T78.40XA Allergy, unspecified, initial encounter (principal); G70.9 Myoneural disorder, unspecified; Z79.899 Other long term (current) drug therapy
CPT/HCPCS: 36000; 36415; 80053; 85025; 99283; J1200; J1720

== ENCOUNTER 2021-03-09 13:37 | Observation (INO) | payer MEDICARE ==
[2021-03-09] MEDS ORDERED: Sodium Chloride 0.9% 1000 ML 1,000 ML IV STA (13:50)
[2021-03-09] MEDS ORDERED: TYLENOL 325 MG PO STA (14:03)
[2021-03-09] MEDS ORDERED: TYLENOL 325 MG ONE (14:03)
[2021-03-09] MEDS ORDERED: Sodium Chloride 0.9% 1000 ML 1,000 ML ONE (14:03)
[2021-03-09 14:24] LABS: Absolute Neutrophil Ct (ANC) 2.65 (1.4-6.9); BASOPHIL % 0.3 % (0.0-0.4); Basophil (Absolute #) 0.01 (0-0.4); Eosinophil % 0.3 % (0.00-5.0); Eosinophil (Absolute #) 0.01 (0-0.5); Hematocrit 43.4 % (35-47); Hemoglobin 14.2 gm/dl (12.0-16.0); Lymphocyte (Absolute #) 0.88 (1.0-4.6); Lymphocytes % 22.7 % (24.0-44.0); Mean Cell Volume 93.9 fl (78-100); Mean Corpuscular Hemoglobin 30.7 pg (26-32); Mean Corpuscular Hgb Concent. 32.7 g/dl (32-36); Mean Platelet Volume 10.8 fl (7.5-11.0); Monocyte (Absolute #) 0.32 (0.0-1.3); Monocytes % 8.3 % (0.0-12.0); Neutrophil % 68.4 % (36.0-66.0); Platelet Count 141 K/mm3 (150-450); Red Blood Count 4.62 M/mm3 (4.1-5.4); Red Cell Distribution Width 14.7 % (11.5-14.0); White Blood Count 3.9 K/mm3 (4.0-10.5)
[2021-03-09 14:31] LABS: INR 1.01 (0.8-3.0); PROTIME 11.9 SECONDS (9.4-12.5)
[2021-03-09 14:45] LABS: ALBUMIN 4.2 g/dL (3.5-5.0); ALKALINE PHOSPHATASE 73 U/L (38-126); ANION GAP 14.6 MEQ/L (5-15); BLOOD UREA NITROGEN 11 mg/dL (7-17); CHLORIDE 97 mmol/L (98-107); Calcium 8.8 mg/dL (8.4-10.2); Carbon Dioxide 26 mmol/L (22-30); Creatinine 1 0.65 mg/dL (0.52-1.04); EST GLOMERULAR FILTRATION RATE > 60.0 ML/MIN; Glucose 104 mg/dL (74-106); MAGNESIUM 2.1 mg/dL (1.6-2.3); NT PRO BNP 54.9 pg/mL (0-900); Potassium 4.2 mmol/L (3.5-5.1); SGOT/AST 34 U/L (14-36); SGPT/ALT 18 U/L (0-35); SODIUM 134 mmol/L (137-145)
[2021-03-09 15:13] LABS: INFLUENZA A NEGATIVE (NEGATIVE); INFLUENZA B NEGATIVE (NEGATIVE)
--- NOTE | 2021-03-09 15:58 | ERPHSYRPT ---
- History of Present Illness Time Seen by Provider: 03/09/21 14:00 Patient Subjective Stated Complaint: Pt states that her whole body hurts, severe headache, fever, and she's confused Triage Nursing Assessment: Pt brought to the ER by her daughter, febrile, rates overall pain as 9/10, skin n/h/d, pulses normal, sinus rhythm, denies SOB, oxygen at 92%, slightly confused Physician History: Is a 60-year-old white female who presents with a complaint of cough for several days. She also states she has had fever chills and sweats. She says she sweats profusely at night. She denies any change in taste or smell. She has had some nausea but no vomiting or diarrhea she is also had some confusion which is not unusual for her when she is with an infection. Severity: moderate Associated Symptoms: nausea, vomiting, shortness of breath, diaphoresis, fever, headaches, loss of appetite, weakness Allergies/Adverse Reactions: Penicillins Allergy (Severe, Verified 03/09/21 13:56) Difficulty Breathing codeine Allergy (Mild, Verified 03/09/21 13:56) Hives aspirin Allergy (Verified 03/09/21 13:56) ibuprofen [From Motrin] Allergy (Verified 03/09/21 13:56) cephalexin [From Keflex] Adverse Reaction (Verified 03/09/21 13:56) Home Medications: Citalopram Hydrobromide [ceLEXa] 40 mg PO DAILY 05/15/16 [History] Omeprazole 20 MG [Prilosec 20 mg] 20 mg PO DAILY 12/29/16 [History] Aripiprazole [Abilify] 2 mg PO DAILY 07/15/17 [History] Folic Acid 1 mg [Folate 1 mg] 1 mg PO DAILY 07/15/17 [History] Furosemide 40 mg [Lasix 40 MG] 40 mg PO BID 07/15/17 [History] Mycophenolate Mofetil [Cellcept] 500 mg PO BID 07/15/17 [History] Ondansetron HCl [Zofran] 4 mg PO Q6H PRN PRN 07/15/17 [History] Oxcarbazepine 300 mg [Trileptal 300 MG Tablet] 300 mg PO TID 07/15/17 [History] Potassium Chloride 10 Meq Tab* [Klor Con 10 MEQ] 10 meq PO TID 07/15/17 [History] Prednisone 20 mg [Deltasone 20 mg] 40 mg PO DAILY 07/15/17 [History] Pyridostigmine [place] 60 mg PO TID 07/15/17 [History] Hx Tetanus, Diphtheria Vaccination/Date Given: Yes (2016) Hx Influenza Vaccination/Date Given: Yes Hx Pneumococcal Vaccination/Date Given: No Travel Risk - International Travel Have you traveled outside of the country in past 3 weeks: No - Coronavirus Screening Symptoms: Fever, Headaches/Body Aches/Fatigue Close contact with a COVID-19 positive Pt in past 14-21 Days: No - Vaccine Status Have you recieved a Covid-19 vaccination: No - Review of Systems Constitutional: Fever, Night Sweats, Weakness, No Chills Eyes: No Symptoms Ears, Nose, & Throat: No Symptoms Respiratory: Cough, Dyspnea, Dyspnea on Exertion (HEARD) Cardiac: No Chest Pain, No Edema, No Syncope Abdominal/Gastrointestinal: Nausea, Vomiting, No Abdominal Pain, No Diarrhea Genitourinary Symptoms: No Dysuria Musculoskeletal: No Back Pain, No Neck Pain Skin: No Rash Neurological: Dizziness, Headache, No Focal Weakness, No Sensory Changes Psychological: No Symptoms Endocrine: No Symptoms All Other Systems: Reviewed and Negative - Past Medical History Pertinent Past Medical History: Yes Neurological History: Other ENT History: No Pertinent History Cardiac History: No Pertinent History, Arrhythmia Respiratory History: Asthma Endocrine Medical History: Liver Disease Musculoskeletal History: Arthritis, Fractures GI Medical History: Ulcer History: Other Psycho-Social History: Depression, Other Female Reproductive Disorders: No Pertinent History Other Medical History: HAD UNKNOWN ORIGIN SPINAL INFECTION (WASN'T MENINGITIS) REQUIRING IV ANTIBIOTICS. WAS INITIALLY DX'D WITH MYASTHENIA GRAVIS BUT WAS RULED OUT STATING RESIDUAL NEUROPATHY WAS DUE TO SPINAL INFECTION. ALSO AFTER SPINAL INFECTION HAD EPISODE OF UNRESPONSIVENESS AND HAD ACUTE KIDNEY FAILURE. SEES KIDNEY SPECIALIST EVERY 6 MONTHS. - Past Surgical History Past Surgical History: Yes Neuro Surgical History: No Pertinent History Cardiac: No Pertinent History Respiratory: No Pertinent History Gastrointestinal: No Pertinent History Musculoskeletal: Orthopedic Surgery Female Surgical History: Hysterectomy, Section Other Surgical History: RIGHT ARM X2 - Social History Smoking Status: Never smoker Exposure to second hand smoke: No Alcohol Use: None Drug Use: none Patient Lives Alone: Yes Significant Family History: no pertinent family hx - Nursing Vital Signs Nursing Vital Signs: Initial Vital Signs Temperature 101.3 F 03/09/21 13:47 Pulse Rate 97 H 03/09/21 13:47 Respiratory Rate 13 03/09/21 13:47 Blood Pressure 140/60 03/09/21 13:47 O2 Sat by Pulse Oximetry 93 L 03/09/21 13:47 Pain Scale Pain Intensity 0 - Physical Exam General Appearance: mild distress, alert Eye Exam: PERRL/EOMI, eyes nml inspection Ears, Nose, Throat Exam: normal ENT inspection, TMs normal, pharynx normal, moist mucous membranes Neck Exam: normal inspection, non-tender, supple, full range of motion Respiratory Exam: normal breath sounds, lungs clear, diminished breath sounds, No respiratory distress Cardiovascular Exam: regular rate/rhythm, normal heart sounds, normal peripheral pulses Gastrointestinal/Abdomen Exam: soft, normal bowel sounds, No tenderness, No mass Back Exam: normal inspection, normal range of motion, No CVA tenderness, No vertebral tenderness Extremity Exam: normal inspection, normal range of motion, pelvis stable Neurologic Exam: alert, cooperative, normal mood/affect, nml cerebellar function, nml station & gait, sensation nml, confusion, No motor deficits Skin Exam: normal color, warm, dry, No rash Lymphatic Exam: No adenopathy SpO2: 97 - Course Nursing assessment & vital signs reviewed: Yes EKG Interpreted by Me: RATE (96), Sinus Rhythm, NORMAL AXIS, NORMAL INTERVALS, N ORMAL QRS, Non-specific ST Changes - Radiology Exams Chest X-ray Interpretation: Interpreted by me, Pneumonia Ordered Tests: Active Orders 24 hr Category Date Time Status Retail Product Advisor STAT Care 03/09/21 14:02 Active EKG-ER Only STAT Care 03/09/21 13:50 Active IV Insertion STAT Care 03/09/21 14:01 Active CHEST 1 VIEW (PORTABLE) Stat Exams 03/09/21 13:50 Taken HEAD WITHOUT CONTRAST [CT] Stat Exams 03/09/21 14:34 Ordered BLOOD CULTURE Stat Lab 03/09/21 13:50 Received CBC W DIFF Stat Lab 03/09/21 14:29 Completed CMP Stat Lab 03/09/21 14:29 Completed D-DIMER QUANTITATIVE Stat Lab 03/09/21 14:29 Completed INFLUENZA A+B ELIANE Stat Lab 03/09/21 14:29 Completed Lactic Acid Stat Lab 03/09/21 13:50 Completed MAGNESIUM Stat Lab 03/09/21 14:29 Completed NT PRO BNP Stat Lab 03/09/21 14:29 Completed PROTIME WITH INR Stat Lab 03/09/21 14:29 Completed TROPONIN Q3H Lab 03/09/21 14:29 Completed TROPONIN Q3H Lab 03/09/21 17:00 Ordered TROPONIN Q3H Lab 03/09/21 20:00 Ordered TROPONIN Q3H Lab 03/09/21 23:00 Ordered TROPONIN Q3H Lab 03/10/21 02:00 Ordered Medication Summary Discontinued Medications Generic Name Dose Route Start Last Admin Trade Name Freq PRN Reason Stop Dose Admin Acetaminophen 975 mg 03/09/21 14:03 03/09/21 14:05 Tylenol 325 Mg PO 03/09/21 14:04 975 mg STAT STA Administration Acetaminophen Confirm 03/09/21 14:03 Tylenol 325 Mg Administered 03/09/21 14:04 Dose 975 mg .ROUTE .STK-MED ONE Sodium Chloride 1,000 mls @ 999 mls/hr 03/09/21 13:50 03/09/21 15:45 Sodium Chloride 0.9% 1000 Ml IV 03/09/21 14:50 Infused .Q1H1M STA Infusion Sodium Chloride Confirm 03/09/21 14:03 Sodium Chloride 0.9% 1000 Ml Administered 03/09/21 14:04 Dose 1,000 mls @ ud .ROUTE .STK-MED ONE Lab/Rad Data: Laboratory Result Diagrams 03/09/21 14:29 03/09/21 14:29 Laboratory Results 03/09/21 03/09/21 03/09/21 Range/Units 14:29 14:29 14:29 WBC (4.0-10.5) K/mm3 RBC (4.1-5.4) M/mm3 Hgb (12.0-16.0) gm/dl Hct (35-47) % MCV (78-100) fl MCH (26-32) pg MCHC (32-36) g/dl RDW (11.5-14.0) % Plt Count (150-450) K/mm3 MPV (7.5-11.0) fl Gran % (36.0-66.0) % Eos # (Auto) (0-0.5) Absolute Lymphs (auto) (1.0-4.6) Absolute Monos (auto) (0.0-1.3) Lymphocytes % (24.0-44.0) % Monocytes % (0.0-12.0) % Eosinophils % (0.00-5.0) % Basophils % (0.0-0.4) % Absolute Granulocytes (1.4-6.9) Basophils # (0-0.4) PT 11.9 (9.4-12.5) SECONDS INR 1.01 (0.8-3.0) D-Dimer 487 (215-500) ng/mL Sodium (137-145) mmol/L Potassium (3.5-5.1) mmol/L Chloride (98-107) mmol/L Carbon Dioxide (22-30) mmol/L Anion Gap (5-15) MEQ/L BUN (7-17) mg/dL Creatinine (0.52-1.04) mg/dL Estimated GFR ML/MIN Glucose (74-106) mg/dL Lactic Acid (0.4-2.0) Calcium (8.4-10.2) mg/dL Magnesium (1.6-2.3) mg/dL Total Bilirubin (0.2-1.3) mg/dL AST (14-36) U/L ALT (0-35) U/L Alkaline Phosphatase (38-126) U/L Troponin I < 0.012 (0.000-0.034) ng/mL NT-Pro-B Natriuret Pep (0-900) pg/mL Serum Total Protein (6.3-8.2) g/dL Albumin (3.5-5.0) g/dL Influenza Type A Ag (NEGATIVE) Influenza Type B Ag (NEGATIVE) SARS-CoV-2 (PCR) POSITIVE A (NEGATIVE) 03/09/21 03/09/21 03/09/21 Range/Units 14:29 14:29 14:29 WBC 3.9 L (4.0-10.5) K/mm3 RBC 4.62 (4.1-5.4) M/mm3 Hgb 14.2 (12.0-16.0) gm/dl Hct 43.4 (35-47) % MCV 93.9 (78-100) fl MCH 30.7 (26-32) pg MCHC 32.7 (32-36) g/dl RDW 14.7 H (11.5-14.0) % Plt Count 141 L (150-450) K/mm3 MPV 10.8 (7.5-11.0) fl Gran % 68.4 H (36.0-66.0) % Eos # (Auto) 0.01 (0-0.5) Absolute Lymphs (auto) 0.88 L (1.0-4.6) Absolute Monos (auto) 0.32 (0.0-1.3) Lymphocytes % 22.7 L (24.0-44.0) % Monocytes % 8.3 (0.0-12.0) % Eosinophils % 0.3 (0.00-5.0) % Basophils % 0.3 (0.0-0.4) % Absolute Granulocytes 2.65 (1.4-6.9) Basophils # 0.01 (0-0.4) PT (9.4-12.5) SECONDS INR (0.8-3.0) D-Dimer (215-500) ng/mL Sodium 134 L (137-145) mmol/L Potassium 4.2 (3.5-5.1) mmol/L Chloride 97 L (98-107) mmol/L Carbon Dioxide 26 (22-30) mmol/L Anion Gap 14.6 (5-15) MEQ/L BUN 11 (7-17) mg/dL Creatinine 0.65 (0.52-1.04) mg/dL Estimated GFR > 60.0 ML/MIN Glucose 104 (74-106) mg/dL Lactic Acid (0.4-2.0) Calcium 8.8 (8.4-10.2) mg/dL Magnesium 2.1 (1.6-2.3) mg/dL Total Bilirubin 0.20 (0.2-1.3) mg/dL AST 34 (14-36) U/L ALT 18 (0-35) U/L Alkaline Phosphatase 73 (38-126) U/L Troponin I (0.000-0.034) ng/mL NT-Pro-B Natriuret Pep 54.9 (0-900) pg/mL Serum Total Protein 7.0 (6.3-8.2) g/dL Albumin 4.2 (3.5-5.0) g/dL Influenza Type A Ag NEGATIVE (NEGATIVE) Influenza Type B Ag NEGATIVE (NEGATIVE) SARS-CoV-2 (PCR) (NEGATIVE) 03/09/21 Range/Units 13:50 WBC (4.0-10.5) K/mm3 RBC (4.1-5.4) M/mm3 Hgb (12.0-16.0) gm/dl Hct (35-47) % MCV (78-100) fl MCH (26-32) pg MCHC (32-36) g/dl RDW (11.5-14.0) % Plt Count (150-450) K/mm3 MPV (7.5-11.0) fl Gran % (36.0-66.0) % Eos # (Auto) (0-0.5) Absolute Lymphs (auto) (1.0-4.6) Absolute Monos (auto) (0.0-1.3) Lymphocytes % (24.0-44.0) % Monocytes % (0.0-12.0) % Eosinophils % (0.00-5.0) % Basophils % (0.0-0.4) % Absolute Granulocytes (1.4-6.9) Basophils # (0-0.4) PT (9.4-12.5) SECONDS INR (0.8-3.0) D-Dimer (215-500) ng/mL Sodium (137-145) mmol/L Potassium (3.5-5.1) mmol/L Chloride (98-107) mmol/L Carbon Dioxide (22-30) mmol/L Anion Gap (5-15) MEQ/L BUN (7-17) mg/dL Creatinine (0.52-1.04) mg/dL Estimated GFR ML/MIN Glucose (74-106) mg/dL Lactic Acid 1.1 (0.4-2.0) Calcium (8.4-10.2) mg/dL Magnesium (1.6-2.3) mg/dL Total Bilirubin (0.2-1.3) mg/dL AST (14-36) U/L ALT (0-35) U/L Alkaline Phosphatase (38-126) U/L Troponin I (0.000-0.034) ng/mL NT-Pro-B Natriuret Pep (0-900) pg/mL Serum Total Protein (6.3-8.2) g/dL Albumin (3.5-5.0) g/dL Influenza Type A Ag (NEGATIVE) Influenza Type B Ag (NEGATIVE) SARS-CoV-2 (PCR) (NEGATIVE) - Progress Progress: unchanged Discussed with Dr.: Other (riky) - Departure Departure Disposition: In-patient Admission Clinical Impression: COVID-19 Condition: Serious Critical Care Time: No Referrals: KIA ANNE MD [Primary Care Provider] -
[2021-03-09] MEDS ORDERED: Sodium Chloride 0.9% 1000 ML 1,000 ML IV SCH (16:15)
--- NOTE | 2021-03-09 19:34 | XRAY ---
Indication: Confusion and weakness. Positive Covid 19. Comparison: April 04, 2017. Portable chest less inflated with new hazy bibasilar interstitial alveolar opacities without consolidation/large effusion. Remaining heart and upper lungs unremarkable. Bony thorax intact.
[2021-03-09] MEDS ORDERED: VENTOLIN COMMON CANISTER IH PRN (19:49)
--- NOTE | 2021-03-09 19:49 | XRAY ---
Indication: Confusion. Generalized weakness. Positive Covid 19. Multiple contiguous axial images obtained through the head without contrast. Comparison: May 04, 2017. Normal appearing brain parenchyma, ventricles, and bony calvarium. Visualized paranasal sinuses and mastoid air cells are clear. Impression: Continued normal CT head without contrast exam. Comment: Preliminary interpretation made by [facility]. No critical discrepancy.
[2021-03-09] MEDS ORDERED: Klor Con 10 MEQ PO PRN (20:48)
[2021-03-09] MEDS ORDERED: Lasix 40 MG PO PRN (20:50)
[2021-03-09] MEDS ORDERED: REMDESIVIR 200 MG in Sodium Chloride 0.9% 250 ML 250 ML IV ONE (20:56)
[2021-03-09] MEDS ORDERED: Abilify 10 MG PO SCH ×2 (22:00→22:36)
[2021-03-09] MEDS ORDERED: Abilify 10 MG ONE (22:33)
[2021-03-09] MEDS ORDERED: Sodium Chloride 0.9% 250 ML 250 ML IV ONE (22:35)
[2021-03-09] MEDS ORDERED: REMDESIVIR IV ONE (22:35)
[2021-03-09] MEDS: LYRICA 100MG PO SCH (23:17)
[2021-03-09] MEDS: xanAX 0.5 MG PO PRN (23:19)
[2021-03-10] MEDS ORDERED: TYLENOL 325 MG ONE (06:05)
[2021-03-10 07:03] LABS: Absolute Neutrophil Ct (ANC) 1.26 (1.4-6.9); Basophil (Absolute #) 0 (0-0.4); Eosinophil (Absolute #) 0 (0-0.5); Hemoglobin 13.5 gm/dl (12.0-16.0); Lymphocyte (Absolute #) 0.94 (1.0-4.6); Lymphocytes % 37.8 % (24.0-44.0); Mean Cell Volume 95.5 fl (78-100); Mean Corpuscular Hemoglobin 30.7 pg (26-32); Mean Corpuscular Hgb Concent. 32.1 g/dl (32-36); Monocyte (Absolute #) 0.29 (0.0-1.3); Monocytes % 11.6 % (0.0-12.0); Neutrophil % 50.6 % (36.0-66.0); Platelet Count 126 K/mm3 (150-450); Red Cell Distribution Width 14.4 % (11.5-14.0); White Blood Count 2.5 K/mm3 (4.0-10.5)
[2021-03-10 07:11] LABS: ALBUMIN 3.6 g/dL (3.5-5.0); ALKALINE PHOSPHATASE 59 U/L (38-126); ANION GAP 13.5 MEQ/L (5-15); BILIRUBIN,TOTAL < 0.10 mg/dL (0.2-1.3); BLOOD UREA NITROGEN 9 mg/dL (7-17); CHLORIDE 101 mmol/L (98-107); Calcium 8.1 mg/dL (8.4-10.2); Carbon Dioxide 25 mmol/L (22-30); Creatinine 1 0.58 mg/dL (0.52-1.04); EST GLOMERULAR FILTRATION RATE > 60.0 ML/MIN; Glucose 109 mg/dL (74-106); SGOT/AST 37 U/L (14-36); SGPT/ALT 20 U/L (0-35); SODIUM 135 mmol/L (137-145); Total Protein 6.1 g/dL (6.3-8.2)
[2021-03-10] MEDS ORDERED: TYLENOL 325 MG PO PRN (07:21)
[2021-03-10] MEDS ORDERED: Klor Con 10 MEQ PO PRN (07:45)
[2021-03-10] MEDS: xanAX 0.5 MG PO PRN (09:19)
[2021-03-10] MEDS: LYRICA 100MG PO SCH (09:49)
[2021-03-10] MEDS ORDERED: Cymbalta 30 MG Capsule PO SCH ×2 (10:00→22:00)
[2021-03-10] MEDS ORDERED: FOLATE 1 MG PO SCH (10:00)
[2021-03-10] MEDS ORDERED: REMDESIVIR 100 MG in Sodium Chloride 0.9% 100 ML BAG 100 ML IV SCH (12:00)
[2021-03-10 12:15] VITALS: BP 120/60
[2021-03-10 12:39] VITALS: PULSE 72; O2SAT 92
--- NOTE | 2021-03-11 12:35 | HP ---
CHIEF COMPLAINT: Fever, chills, lethargy, confusion. HISTORY OF PRESENT ILLNESS: The patient is a 60 year-old white female who was found by her daughter after she had not gotten out of bed for two days. She said she hurt all over, had severe headache, fever and had been confused. She was brought to the emergency room where her O2 saturation was normal. She appeared slightly confused. She denied any cough, shortness of breath. The emergency room doctor did provide positive to those questions as well as nausea and vomiting. She states that her mood is good. She is learning to roll with the punches. She enjoys life and gardens and has a good friend. She knows of no contact with anyone with COVID. She states she does not get out that much. She has not had any vaccines. MEDICATIONS: Celexa 40, Prilosec 20, Xanax 0.5 h.s., Abilify 2 mg q.a.m., folic acid 1 mg q.d., furosemide 40 q.d., Mofetil 500 b.i.d., Zofran 4 every six hours PRN, Trileptal 300 t.i.d., potassium 10 q.d., prednisone in the past but not recently, pyridostigmine quit it in 2017. She was on it for diagnosis of Myasthenia gravis. It is obvious she does not have it. She normally has no problems. ALLERGIES: PENICILLIN. CODEINE. ASPIRIN. IBUPROFEN. KEFLEX. PAST MEDICAL HISTORY: Her medical problems are kind of complex. She has had severe neuropathy of the feet and legs which has been made much better with electrical stimulator, she states and that is the reason she is on the Trileptal. She also suffers from depression probably in the past. Her son committed suicide five years ago and her 14 years ago and a [id number] some time ago so may explain Abilify 2 mg and antidepressant of Celexa. PAST SURGICAL HISTORY: Right arm for fractures. Hysterectomy. REVIEW OF SYSTEMS: CONSTITUTIONAL: She said she had fevers, night sweats and weakness. HEENT: Normal. CHEST: Slight cough, short of breath, nonsmoker. ABDOMEN: Occasional nausea. No pain. No diarrhea. MUSCULOSKELETAL: She has chronic pain which has been well controlled with the modality they are using. SKIN: No rashes. NEUROLOGIC: Her daughter said she was a little confused. She laughs when she just confused at times but not really. Apparently the neuropathy is "Due to an unknown spinal infection and not meningitis" in which she had acute kidney failure. She sees a kidney specialist every six months. I am sure she sees a pain specialist and a psychologist but she did not give their names. PHYSICAL EXAMINATION: The patient is smiling, laughing, very appropriate, younger than normal appearing 60 year-old white female who is now afebrile although she had a temperature of 101F when she came in. her O2 saturation is 94% on room air. HEENT: Pupils equal and reactive to light. NECK: Supple without adenopathy. CHEST: Few crackles. CVS: No murmurs or gallops. ABDOMEN: Soft. No masses or organomegaly. EXTREMITIES: The patient had a battery pack on her left hip. She moves all normally, has decreased sensation of feet otherwise normal. IMPRESSION: The patient has acute COVID with symptoms of fever, fatigue, nausea. History of severity of family events, severe peripheral neuropathy controlled with medication and electrical nerve stimulator, lab work. The patient's D-dimer is 487 which is normal. White count is normal. Sodium 134. Lactic acid was normal. Chest x-ray was read as normal. PLAN: At this time we are going to observe her. Giving her steroids will probably make her confused she states and they also make her feel bad. She is having no respiratory problems. I do not feel like she needs to be anticoagulated and the D-dimer is not high at this point. We will re-evaluate in 12 hours.
== END 2021-03-10 13:25 | disposition home or self-care (01) ==
LOC: ED 13:37 → INTOOBSV 17:35 → MED SURG 17:35
PROVIDERS: ADMIT Family Medicine; ATTEND Family Medicine
DX: U07.1 COVID-19 (principal); R41.0 Disorientation, unspecified; R50.9 Fever, unspecified; R53.83 Other fatigue; R11.2 Nausea with vomiting, unspecified; Z79.899 Other long term (current) drug therapy; Z20.828 Contact with and (suspected) exposure to other viral communicable diseases; R51.9 Headache, unspecified
CPT/HCPCS: 36000; 36415; 70450; 71045; 80053; 83605; 83735; 83880; 84484; 85025; 85379; 85610; 87040; 87400; 93005; 93041; 93268; 94640; 94762; 96360; 99285; G0378; U0003; A9270-GY

== ENCOUNTER 2021-03-11 18:37 | Observation (INO) | payer MEDICARE ==
--- NOTE | 2021-03-11 19:20 | ERPHSYRPT ---
- History of Present Illness Source: patient, EMS Exam Limitations: clinical condition Patient Subjective Stated Complaint: PT states "I am here but my daughter wanted me here. I couldn't figure out how to use my phone, I was crawling accross my neighbors yard. I just want my phone to work and have a 12 pack of diet coke." Triage Nursing Assessment: PT was released from vovid unit yesterday at 1330. PT presented alert and oriented X 3, skin wpd pt able to speak in clear full sentences pt in no apparent respiratory distress. Pt speaking with slow. speech, pt in no respiratory distress. Physician History: 60 yo wf released from [facility] yesterday presents per EMS for confusion. Pt alert and oriented x3 upon wo evidence of trauma. She denies focal weakness/fever/chest pain/N/V/D/melena/hematochezia. Pt does have a cough due to Covid and mild dyspnea upon exertion. Timing/Duration: today Severity of Symptoms-Max: moderate Severity of Symptoms-Current: mild Context related to: other (Unknown) Associated Symptoms: confused, impaired concentration Previous symptoms: no prior history Allergies/Adverse Reactions: Penicillins Allergy (Severe, Verified 03/09/21 13:56) Difficulty Breathing shellfish derived Allergy (Severe, Verified 03/11/21 18:51) swelling and stop breathing. codeine Allergy (Mild, Verified 03/09/21 13:56) Hives aspirin Allergy (Verified 03/09/21 13:56) ibuprofen [From Motrin] Allergy (Verified 03/09/21 13:56) cephalexin [From Keflex] Adverse Reaction (Verified 03/09/21 13:56) Home Medications: Aripiprazole [Abilify] 5 mg PO HS 07/15/17 [History] Folic Acid 1 mg [Folate 1 mg] 1 mg PO DAILY 07/15/17 [History] Furosemide 40 mg [Lasix 40 MG] 40 mg PO DAILY PRN 07/15/17 [History] Potassium Chloride 10 Meq Tab* [Klor Con 10 MEQ] 10 meq PO DAILY PRN 07/15/17 [History] ALPRAZolam [Alprazolam] 0.5 mg PO TID PRN 03/09/21 [History] Duloxetine HCl 30 mg [Cymbalta 30 MG Capsule] 90 mg PO HS 03/09/21 [History] Pregabalin [Lyrica 100Mg] 200 mg PO TID 03/09/21 [History] Hx Tetanus, Diphtheria Vaccination/Date Given: Yes (2016) Hx Influenza Vaccination/Date Given: Yes Hx Pneumococcal Vaccination/Date Given: No Immunizations Up to Date: Yes Travel Risk - International Travel Have you traveled outside of the country in past 3 weeks: No - Coronavirus Screening Are you exhibiting any of the following symptoms?: Yes Symptoms: Fever, Cough: New Onset, Shortness of Breath Close contact with a COVID-19 positive Pt in past 14-21 Days: No - Vaccine Status Have you recieved a Covid-19 vaccination: No - Past Medical History Pertinent Past Medical History: Yes Neurological History: Other ENT History: No Pertinent History Cardiac History: No Pertinent History, Arrhythmia Respiratory History: Asthma Endocrine Medical History: Liver Disease Musculoskeletal History: Arthritis, Fractures GI Medical History: Ulcer History: Other Psycho-Social History: Depression, Other Female Reproductive Disorders: No Pertinent History Other Medical History: HAD UNKNOWN ORIGIN SPINAL INFECTION (WASN'T MENINGITIS) REQUIRING IV ANTIBIOTICS. WAS INITIALLY DX'D WITH MYASTHENIA GRAVIS BUT WAS RULED OUT STATING RESIDUAL NEUROPATHY WAS DUE TO SPINAL INFECTION. ALSO AFTER SPINAL INFECTION HAD EPISODE OF UNRESPONSIVENESS AND HAD ACUTE KIDNEY FAILURE. SEES KIDNEY SPECIALIST EVERY 6 MONTHS. - Past Surgical History Past Surgical History: Yes Neuro Surgical History: No Pertinent History Cardiac: No Pertinent History Respiratory: No Pertinent History Gastrointestinal: No Pertinent History Musculoskeletal: Orthopedic Surgery Female Surgical History: Hysterectomy, Section Other Surgical History: RIGHT ARM X2 - Social History Smoking Status: Former smoker Exposure to second hand smoke: No Alcohol Use: None Drug Use: none Patient Lives Alone: Yes Significant Family History: no pertinent family hx - Female History Hx Now: No - Review of Systems Constitutional: No Symptoms Eyes: No Symptoms Ears, Nose, & Throat: No Symptoms Respiratory: No Symptoms, Cough, Dyspnea on Exertion (HEARD) Cardiac: No Symptoms Abdominal/Gastrointestinal: No Symptoms Genitourinary Symptoms: No Symptoms Musculoskeletal: No Symptoms Skin: No Symptoms Neurological: No Symptoms, Other (Confusion) Psychological: No Symptoms Endocrine: No Symptoms Hematologic/Lymphatic: No Symptoms Immunological/Allergic: No Symptoms - Nursing Vital Signs Nursing Vital Signs: Initial Vital Signs Temperature 99.8 F 03/11/21 18:39 Pulse Rate 86 03/11/21 18:39 Respiratory Rate 22 03/11/21 18:39 Blood Pressure 117/69 03/11/21 18:39 O2 Sat by Pulse Oximetry 93 L 03/11/21 18:39 Pain Scale Pain Intensity 0 Borderline sats - Physical Exam General Appearance: no apparent distress Eyes, Ears, Nose, Throat Exam: normal ENT inspection, TMs normal, pharynx normal, moist mucous membranes Neck Exam: normal inspection, non-tender, supple, full range of motion, No Brudzinski, No Kernig's, No meningismus Respiratory Exam: airway intact, crackles/rales (Scattered rales B) Cardiovascular Exam: regular rate/rhythm, No murmur Gastrointestinal/Abdominal Exam: soft, normal bowel sounds, No tenderness Extremities Exam: normal inspection, normal range of motion, No evidence of injury Peripheral Pulses: carotid (R): 2+, carotid (L): 2+ Neurological Exam: alert, 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, 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, oriented x 3 (does appear confused at times) Appearance: appropriate appearance, appropriate insight, neat, impaired recent memory Behavior/Eye Contact/Speech: alert & cooperative, good eye contact, normal speech Skin Exam: normal color, warm, dry, No rash SpO2 Interpretation: borderline oxygenation SpO2: 93 O2 Delivery: Room Air - Course EKG Interpreted by Me: RATE (NSR/R80/Mildly prolonged QTc/Low voltage/No acute ST changes) - CT Exams Head CT Interpretation: Discussed w/radiologist (Neg per Rad) Ordered Tests: Active Orders 24 hr Category Date Time Status EKG-ER Only STAT Care 03/11/21 19:12 Completed House Regular Diet Diet 03/11/21 Breakfast Active HEAD WITHOUT CONTRAST [CT] Stat Exams 03/11/21 19:14 Taken ABG [ARTERIAL BLOOD GASES] Stat Lab 03/11/21 21:19 Completed CBC AM.LAB Lab 03/12/21 04:00 Ordered CBC W DIFF Stat Lab 03/11/21 20:25 Completed CMP AM.LAB Lab 03/12/21 04:00 Ordered CMP Stat Lab 03/11/21 20:25 Completed ETHYL ALCOHOL Stat Lab 03/11/21 20:25 Completed TROPONIN Q3H Lab 03/11/21 20:25 Completed TROPONIN Q3H Lab 03/12/21 04:15 Ordered TROPONIN Q3H Lab 03/12/21 07:15 Ordered UA W/RFX UR CULTURE Stat Lab 03/11/21 20:25 Completed Urine Triage Profile Stat Lab 03/11/21 20:25 Completed Medication Summary Generic Name Dose Route Start Last Admin Trade Name Sdq PRN Reason Stop Dose Admin Acetaminophen 650 mg 03/12/21 00:14 03/12/21 00:33 Tylenol 325 Mg PO 04/11/21 00:13 650 mg Q4H PRN PRN Administration PAIN, FEVER, HEADACHE Alprazolam 0.5 mg 03/12/21 00:09 03/12/21 00:33 Xanax 0.5 Mg PO 04/11/21 00:08 0.5 mg TID PRN PRN Administration ANXIETY Aripiprazole 5 mg 03/12/21 00:30 03/12/21 00:32 Abilify 10 Mg PO 04/11/21 00:29 5 mg HS AGATHA Administration Duloxetine HCl 90 mg 03/12/21 00:30 03/12/21 00:31 Cymbalta 30 Mg Capsule PO 04/11/21 00:29 90 mg HS AGATHA Administration Enoxaparin Sodium 40 mg 03/12/21 10:00 Enoxaparin Sodium SQ 04/11/21 09:59 DAILY AGATHA Sodium Chloride 1,000 mls @ 0 mls/hr 03/11/21 22:00 03/12/21 00:36 Sodium Chloride 0.9% 1000 Ml IV 04/10/21 21:59 50 mls/hr .Q0M AGATHA Administration KVO Ondansetron HCl 4 mg 03/11/21 21:52 Zofran 4 Mg/2 Ml Vial IV 04/10/21 21:51 Q6H PRN PRN NAUSEA/VOMITING Pantoprazole Sodium 40 mg 03/12/21 10:00 Protonix 40 Mg Iv IV 04/11/21 09:59 Q24H10 AGATHA Pregabalin 200 mg 03/12/21 00:30 03/12/21 00:30 Lyrica 50mg PO 04/11/21 00:29 200 mg TID AGATHA Administration Discontinued Medications Generic Name Dose Route Start Last Admin Trade Name Cristina PRN Reason Stop Dose Admin Aripiprazole 2 mg 03/12/21 00:30 Abilify 10 Mg PO 04/11/21 00:29 HS REPLACED BY [facility] Duloxetine HCl 90 mg 03/12/21 22:00 Cymbalta 30 Mg Capsule PO 04/11/21 21:59 HS REPLACED BY [facility] Duloxetine HCl Confirm 03/12/21 00:19 Cymbalta 30 Mg Capsule Administered 03/12/21 00:20 Dose 90 mg .ROUTE .STK-MED ONE Pregabalin 200 mg 03/12/21 10:00 Lyrica 50mg PO 04/11/21 09:59 TID REPLACED BY [facility] Lab/Rad Data: Laboratory Result Diagrams 03/11/21 20:25 03/11/21 20:25 Laboratory Results 03/11/21 03/11/21 03/11/21 Range/Units 21:19 20:25 20:25 WBC (4.0-10.5) K/mm3 RBC (4.1-5.4) M/mm3 Hgb (12.0-16.0) gm/dl Hct (35-47) % MCV (78-100) fl MCH (26-32) pg MCHC (32-36) g/dl RDW (11.5-14.0) % Plt Count (150-450) K/mm3 MPV (7.5-11.0) fl Gran % (36.0-66.0) % Eos # (Auto) (0-0.5) Absolute Lymphs (auto) (1.0-4.6) Absolute Monos (auto) (0.0-1.3) Lymphocytes % (24.0-44.0) % Monocytes % (0.0-12.0) % Eosinophils % (0.00-5.0) % Basophils % (0.0-0.4) % Absolute Granulocytes (1.4-6.9) Basophils # (0-0.4) Puncture Site RIGHT RADIAL pCO2 37 (35-45) mmHg pO2 58 L (75-100) mmHg Base Excess 3.2 H (-2.0-2.0) O2 Saturation 89.0 L (94-100) g/dF ABG pH 7.47 H (7.35-7.45) ABG HCO3 26.9 (22-28) ABG O2 Sat (Measured) 90.7 L (95-100) % Eldon Test YES A-a Gradient 45 a/A Ratio 0.56 Hemoglobin 14.2 Carboxyhemoglobin 0.8 (0.0-6.9) % THgb Methemoglobin 1.0 L (1.4-1.5) % Temperature 37.0 C POC O2 Flow Rate 21 % Sodium (137-145) mmol/L Potassium 3.8 (3.5-5.1) mmol/L Chloride (98-107) mmol/L Carbon Dioxide (22-30) mmol/L Anion Gap (5-15) MEQ/L BUN (7-17) mg/dL Creatinine (0.52-1.04) mg/dL Estimated GFR ML/MIN Glucose (74-106) mg/dL Calcium (8.4-10.2) mg/dL Total Bilirubin (0.2-1.3) mg/dL AST (14-36) U/L ALT (0-35) U/L Alkaline Phosphatase (38-126) U/L Troponin I < 0.012 (0.000-0.034) ng/mL Serum Total Protein (6.3-8.2) g/dL Albumin (3.5-5.0) g/dL Urine Color (YELLOW) Urine Appearance (CLEAR) Urine pH (5-6) Ur Specific Merino (1.005-1.025) Urine Protein (Negative) Urine Ketones (NEGATIVE) Urine Blood (0-5) Andrea/ul Urine Nitrite (NEGATIVE) Urine Bilirubin (NEGATIVE) Urine Urobilinogen (0-1) mg/dL Ur Leukocyte Esterase (NEGATIVE) Urine WBC (Auto) (0-5) /HPF Urine RBC (Auto) (0-2) /HPF U Epithel Cells (Auto) (FEW) /HPF Urine Bacteria (Auto) (NEGATIVE) /HPF Urine Mucus (Auto) (NEGATIVE) /HPF Urine Culture Reflexed (NO) Urine Glucose (NEGATIVE) mg/dL Urine Opiates Level NEGATIVE (NEGATIVE) Ur Methadone NEGATIVE (NEGATIVE) Urine Barbiturates NEGATIVE (NEGATIVE) Ur Phencyclidine (PCP) NEGATIVE (NEGATIVE) Urine Amphetamine NEGATIVE (NEGATIVE) U Benzodiazepine Level POSITIVE (NEGATIVE) Urine Cocaine NEGATIVE (NEGATIVE) Urine Marijuana (THC) NEGATIVE (NEGATIVE) Ethyl Alcohol (0-10) mg/dL 03/11/21 03/11/21 03/11/21 Range/Units 20:25 20:25 20:25 WBC 3.8 L (4.0-10.5) K/mm3 RBC 4.49 (4.1-5.4) M/mm3 Hgb 13.9 (12.0-16.0) gm/dl Hct 42.2 (35-47) % MCV 94.0 (78-100) fl MCH 31.0 (26-32) pg MCHC 32.9 (32-36) g/dl RDW 14.1 H (11.5-14.0) % Plt Count 144 L (150-450) K/mm3 MPV 10.9 (7.5-11.0) fl Gran % 59.7 (36.0-66.0) % Eos # (Auto) 0.02 (0-0.5) Absolute Lymphs (auto) 1.15 (1.0-4.6) Absolute Monos (auto) 0.33 (0.0-1.3) Lymphocytes % 30.7 (24.0-44.0) % Monocytes % 8.8 (0.0-12.0) % Eosinophils % 0.5 (0.00-5.0) % Basophils % 0.3 (0.0-0.4) % Absolute Granulocytes 2.24 (1.4-6.9) Basophils # 0.01 (0-0.4) Puncture Site pCO2 (35-45) mmHg pO2 (75-100) mmHg Base Excess (-2.0-2.0) O2 Saturation (94-100) g/dF ABG pH (7.35-7.45) ABG HCO3 (22-28) ABG O2 Sat (Measured) (95-100) % Eldon Test A-a Gradient a/A Ratio Hemoglobin Carboxyhemoglobin (0.0-6.9) % THgb Methemoglobin (1.4-1.5) % Temperature C POC O2 Flow Rate % Sodium 137 (137-145) mmol/L Potassium 3.9 (3.5-5.1) mmol/L Chloride 100 (98-107) mmol/L Carbon Dioxide 27 (22-30) mmol/L Anion Gap 14.7 (5-15) MEQ/L BUN 12 (7-17) mg/dL Creatinine 0.57 (0.52-1.04) mg/dL Estimated GFR > 60.0 ML/MIN Glucose 94 (74-106) mg/dL Calcium 9.0 (8.4-10.2) mg/dL Total Bilirubin 0.30 (0.2-1.3) mg/dL AST 37 H (14-36) U/L ALT 19 (0-35) U/L Alkaline Phosphatase 61 (38-126) U/L Troponin I (0.000-0.034) ng/mL Serum Total Protein 6.6 (6.3-8.2) g/dL Albumin 4.0 (3.5-5.0) g/dL Urine Color YELLOW (YELLOW) Urine Appearance SLIGHTLY CLOUDY (CLEAR) Urine pH 6.0 (5-6) Ur Specific Merino 1.017 (1.005-1.025) Urine Protein 30 (Negative) Urine Ketones SMALL (NEGATIVE) Urine Blood NEGATIVE (0-5) Andrea/ul Urine Nitrite NEGATIVE (NEGATIVE) Urine Bilirubin NEGATIVE (NEGATIVE) Urine Urobilinogen NEGATIVE (0-1) mg/dL Ur Leukocyte Esterase NEGATIVE (NEGATIVE) Urine WBC (Auto) 3-5 (0-5) /HPF Urine RBC (Auto) 0-2 (0-2) /HPF U Epithel Cells (Auto) RARE (FEW) /HPF Urine Bacteria (Auto) RARE (NEGATIVE) /HPF Urine Mucus (Auto) SLIGHT (NEGATIVE) /HPF Urine Culture Reflexed NO (NO) Urine Glucose NEGATIVE (NEGATIVE) mg/dL Urine Opiates Level (NEGATIVE) Ur Methadone (NEGATIVE) Urine Barbiturates (NEGATIVE) Ur Phencyclidine (PCP) (NEGATIVE) Urine Amphetamine (NEGATIVE) U Benzodiazepine Level (NEGATIVE) Urine Cocaine (NEGATIVE) Urine Marijuana (THC) (NEGATIVE) Ethyl Alcohol < 10 (0-10) mg/dL - Progress Progress Note: 03/11/21 21:[address] Sky for confusion/CV19 Counseled pt/family regarding: lab results, diagnosis, need for follow-up, rad results - Departure Departure Disposition: Observation Clinical Impression: Confusion, COVID-19 Condition: Stable Critical Care Time: No
[2021-03-11 20:52] LABS: Absolute Neutrophil Ct (ANC) 2.24 (1.4-6.9); BASOPHIL % 0.3 % (0.0-0.4); Basophil (Absolute #) 0.01 (0-0.4); Eosinophil % 0.5 % (0.00-5.0); Eosinophil (Absolute #) 0.02 (0-0.5); Hematocrit 42.2 % (35-47); Hemoglobin 13.9 gm/dl (12.0-16.0); Lymphocyte (Absolute #) 1.15 (1.0-4.6); Lymphocytes % 30.7 % (24.0-44.0); Mean Corpuscular Hgb Concent. 32.9 g/dl (32-36); Mean Platelet Volume 10.9 fl (7.5-11.0); Monocyte (Absolute #) 0.33 (0.0-1.3); Monocytes % 8.8 % (0.0-12.0); Neutrophil % 59.7 % (36.0-66.0); Platelet Count 144 K/mm3 (150-450); Red Blood Count 4.49 M/mm3 (4.1-5.4); Red Cell Distribution Width 14.1 % (11.5-14.0); White Blood Count 3.8 K/mm3 (4.0-10.5)
[2021-03-11 20:58] LABS: Appearance SLIGHTLY CLOUDY (CLEAR); Bacteria RARE /HPF (NEGATIVE); Bilirubin NEGATIVE (NEGATIVE); Blood NEGATIVE Ery/ul (0-5); Epithelial Cells RARE /HPF (FEW); Glucose NEGATIVE (NEGATIVE); Ketones SMALL (NEGATIVE); Leukocyte Esterase NEGATIVE (NEGATIVE); Mucus SLIGHT /HPF (NEGATIVE); Nitrite NEGATIVE (NEGATIVE); Protein,Urine Dip 30 (Negative); RBC 0-2 /HPF (0-2); Specific Gravity 1.017 (1.005-1.025); Urobilinogen NEGATIVE mg/dL (0-1)
[2021-03-11 21:05] LABS: ALKALINE PHOSPHATASE 61 U/L (38-126); ANION GAP 14.7 MEQ/L (5-15); BLOOD UREA NITROGEN 12 mg/dL (7-17); CHLORIDE 100 mmol/L (98-107); Carbon Dioxide 27 mmol/L (22-30); Creatinine 1 0.57 mg/dL (0.52-1.04); EST GLOMERULAR FILTRATION RATE > 60.0 ML/MIN; ETHYL ALCOHOL < 10 mg/dL (0-10); Glucose 94 mg/dL (74-106); Potassium 3.9 mmol/L (3.5-5.1); SGOT/AST 37 U/L (14-36); SGPT/ALT 19 U/L (0-35); SODIUM 137 mmol/L (137-145); Total Protein 6.6 g/dL (6.3-8.2)
[2021-03-11 21:09] LABS: Amphetamine,Urine NEGATIVE (NEGATIVE); Barbiturate,Urine NEGATIVE (NEGATIVE); Benzodiazepine,Urine POSITIVE (NEGATIVE); Cocaine,Urine NEGATIVE (NEGATIVE); Methadone,Urine NEGATIVE (NEGATIVE); Opiate,Urine NEGATIVE (NEGATIVE); PCP,Urine NEGATIVE (NEGATIVE); THC,Urine NEGATIVE (NEGATIVE)
[2021-03-11 21:38] LABS: A-aADO2 45; ABG HEMOGLOBIN 14.2; ABG POTASSIUM 3.8 (3.5-5.1); ABG SITE RIGHT RADIAL; ALLEN TEST OK? YES; ARTERIAL BLD GAS O2 SATURATION 90.7 % (95-100); ARTERIAL BLOOD GAS BASE EXCESS 3.2 (-2.0-2.0); ARTERIAL BLOOD GAS FIO2 21 %; ARTERIAL BLOOD GAS PCO2 37 mmHg (35-45); ARTERIAL BLOOD GAS PO2 58 mmHg (75-100); ARTERIAL BLOOD GAS pH 7.47 (7.35-7.45); CARBOXYHEMOGLOBIN 0.8 % THgb (0.0-6.9); HCO3- 26.9 (22-28)
[2021-03-11] MEDS ORDERED: Zofran 4 MG/2 ML VIAL IV PRN (21:52)
[2021-03-11] MEDS ORDERED: Sodium Chloride 0.9% 1000 ML 1,000 ML IV SCH (22:00)
[2021-03-12] MEDS ORDERED: xanAX 0.5 MG PO PRN (00:09)
[2021-03-12] MEDS ORDERED: TYLENOL 325 MG PO PRN (00:14)
[2021-03-12] MEDS ORDERED: Cymbalta 30 MG Capsule ONE (00:19)
[2021-03-12] MEDS ORDERED: Abilify 10 MG PO SCH ×2 (00:30)
[2021-03-12] MEDS: Lyrica 50MG PO SCH ×2 (00:30→10:12)
[2021-03-12] MEDS ORDERED: Cymbalta 30 MG Capsule PO SCH ×2 (00:30→22:00)
[2021-03-12] MEDS ORDERED: VENTOLIN COMMON CANISTER IH PRN (05:44)
[2021-03-12 05:46] LABS: Hematocrit 41.3 % (35-47); Hemoglobin 13.5 gm/dl (12.0-16.0); Mean Cell Volume 93.9 fl (78-100); Mean Corpuscular Hemoglobin 30.7 pg (26-32); Mean Corpuscular Hgb Concent. 32.7 g/dl (32-36); Mean Platelet Volume 11.3 fl (7.5-11.0); Platelet Count 134 K/mm3 (150-450); White Blood Count 2.9 K/mm3 (4.0-10.5)
[2021-03-12 05:54] LABS: ALBUMIN 3.5 g/dL (3.5-5.0); ALKALINE PHOSPHATASE 57 U/L (38-126); ANION GAP 13.9 MEQ/L (5-15); BLOOD UREA NITROGEN 12 mg/dL (7-17); CHLORIDE 103 mmol/L (98-107); Calcium 8.6 mg/dL (8.4-10.2); Carbon Dioxide 26 mmol/L (22-30); Creatinine 1 0.46 mg/dL (0.52-1.04); EST GLOMERULAR FILTRATION RATE > 60.0 ML/MIN; Glucose 109 mg/dL (74-106); Potassium 3.5 mmol/L (3.5-5.1); SGOT/AST 36 U/L (14-36); SGPT/ALT 18 U/L (0-35); SODIUM 139 mmol/L (137-145); Total Protein 6.1 g/dL (6.3-8.2)
--- NOTE | 2021-03-12 08:47 | XRAY ---
Indication: Found confused. Dyspnea on exertion. Recent discharge for Covid 19. History arrhythmia. Multiple contiguous images obtained through the head without contrast. Comparison: March 09, 2021. Again metallic beam artifact from multiple bilateral ear jewelry. Normal appearing brain parenchyma, ventricles, and bony calvarium. Visualized paranasal sinuses and mastoid air cells are clear. Impression: Continued normal CT head without contrast exam.
[2021-03-12] MEDS ORDERED: Robitussin-Dm Syrup PO PRN (09:24)
[2021-03-12] MEDS ORDERED: ENOXAPARIN SODIUM SQ SCH (10:00)
[2021-03-12] MEDS ORDERED: PROTONIX 40 MG IV IV SCH (10:00)
[2021-03-12] MEDS ORDERED: Lyrica 50MG PO SCH (10:00)
[2021-03-12] MEDS ORDERED: Lasix 40 MG PO PRN (11:52)
[2021-03-12] MEDS ORDERED: Klor Con 10 MEQ PO PRN (11:52)
[2021-03-12] MEDS ORDERED: FOLATE 1 MG PO SCH (12:00)
[2021-03-12 12:37] VITALS: BP 99/62; PULSE 75; O2SAT 91
--- NOTE | 2021-03-12 15:20 | SSS ---
DISCHARGE DIAGNOSES: 1) CONFUSION. 2) ACUTE COVID. 3) ENCEPHALITIS SYNDROME. 4) CHRONIC BACK PAIN. HOSPITAL COURSE: The patient is known to me. I had admitted her several days ago with acute COVID and she did very well then. She was confused also with her temperature going up. She states she is confused all the time somewhat. She had encephalitis years ago which I think has left her with some post-encephalitic damage. She can live alone, cook, take care of her animals, clean her house. She is very pleasant to talk to. She remembers going outside. She could not get her phone to work and she was having trouble getting her conveyor line battery charger to work nerve stimulator. She had a temperature of 99F in the emergency room otherwise she had no new aches or pains. No coughing. No vomiting, diarrhea or COVID symptoms. She had been discharged no more than 36 hours before in good condition. The emergency room doctor found her in good condition except for the transient confusion. I asked if I could talk to her daughter and get a little bit of history and she said "No" I cannot talk to her daughter which she has told me that before. Apparently there is some friction there. However, the daughter does take her to the hospital and will pick her up and just miscommunication from past things I am sure. She also has a granddaughter who apparently checks in on her. She does live alone. MEDICATIONS: Abilify 2 mg h.s., folic acid 1 mg q.d., Lasix 40 q.d., KCL 10 q.d., Xanax 0.5 t.i.d. Cymbalta 90 q.d. and Lyrica 200 t.i.d. that are both for neuropathy plus she has got an electric nerve stimulator. ALLERGIES: PENICILLIN. CODEINE. ASPIRIN. IBUPROFEN. SHELLFISH. 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 I was told she had myasthenia gravis however she stopped her medicine years ago and saw no difference. She has good strength in all extremities and normally walks and does lots of housework with no problems. TRAVEL RISK: None. CORONAVIRUS SCREENING: She did not have a COVID vaccine however she is allergic to shellfish which is usually a contraindication. REVIEW OF SYSTEMS: HEENT: No problems hearing or seeing. CHEST: No shortness of breath. No cough. CVS: No exertional chest pain or palpitations. RESPIRATORY: Some history of asthma in the past. ENDOCRINE: States she has had elevated liver enzymes in the past probably from medicines, not known. MUSCULOSKELETAL: She has had fractured right arm in the past. MUSIC ENGINEER: Hysterectomy, section. SOCIAL HISTORY: The patient has a very depressing past history. Her committed suicide, [id number] committed suicide and her son committed suicide five years ago. PHYSICAL EXAMINATION: The patient is alert, orientated and pleasant, well-kept. HEENT: Pupils equal and reactive to light. NECK: Supple without adenopathy. CHEST: Clear. CVS: No murmurs or gallops. ABDOMEN: Soft. No masses or organomegaly. She is at a good weight. EXTREMITIES: She can move all. She has decreased sensation of her feet. She states she ambulates okay. IMPRESSION: The patient had some acute confusion. She stated she could not figure out her phone or her conveyor line battery charger for her nerve stimulator and apparently she was outside at night. This may have been secondary to exacerbation of chronic mild confusion from having low grade fever of 99F and the COVID. PLAN: I told her she should go home, stay inside. She is confused. If people would just take her back inside. If there are any new problems this should pass. Her statement was "I just went out. I wanted my phone to work and I wanted a 12-pack of Diet Coke". PROGNOSIS: Good.
== END 2021-03-12 13:05 | disposition home or self-care (01) ==
LOC: ED 18:37 → MED SURG 22:06
PROVIDERS: ADMIT Family Medicine; ATTEND Family Medicine
DX: R41.0 Disorientation, unspecified (principal); U07.1 COVID-19; G04.90 Encephalitis and encephalomyelitis, unspecified; M54.9 Dorsalgia, unspecified; Z79.899 Other long term (current) drug therapy
CPT/HCPCS: 36415; 36600; 70450; 80053; 80307; 81001; 82375; 82803; 84484; 85025; 85027; 93005; 94762; 99285; G0378; G0480; A9270-GY

== ENCOUNTER 2022-07-26 18:12 | Emergency (ER) | payer MEDICARE ==
[2022-07-26] MEDS ORDERED: TYLENOL 325 MG PO STA (18:28)
[2022-07-26] MEDS ORDERED: TYLENOL 325 MG ONE (18:44)
--- NOTE | 2022-07-26 18:54 | ERPHSYRPT ---
- History of Present Illness Time Seen by Provider: 07/26/22 18:23 Source: patient Exam Limitations: no limitations Patient Subjective Stated Complaint: pt reports fall from standing this morning, reports her legs got tangled in her blanket and she struck her face on the l inoleum, denies LOC, reports facial pain, denies any other injury at this time Triage Nursing Assessment: pt is aox3, pupils perrl, afebrile, resps easy and non labored, cap refill < 3 seconds, radial pulses strong and equal, pt skin pink warm dry. pt with dark purple bruising to both eyes with moderate swelling to the left lateral eye. skin is intact. pt with no visual disturbance. Physician History: 62 years old female with history of peripheral neuropathy, issues with balance, walks with a cane, got up this morning and her blanket got tangled around her feet and fell forward from a standing position and hit her face against the floor. No loss of consciousness. She took Tylenol and started to feel a little better but still have some frontal headache but no numbness tingling or focal weakness. Patient started to have swelling/bluish discoloration around eyes. Denies any visual disturbance or difficulty movements of eyeball. No neck pain. No injury anywhere else. Occurred: this morning Reason for Fall: tripped, fell from standing pos Injuries/Pain Location: face Loss of Consciousness: no loss of consciousness Quality: sharpness Severity of Pain-Max: moderate Severity of Pain-Current: mild Modifying Factors: Improves With: nothing Associated Symptoms (Fall): No abdominal pain, No back pain, No confusion, No chest pain, No dizziness, No extremity injury, No headache, No muscle spasms, No nausea, No neck pain, No ringing in ears, No seizures, No shortness of breath, No slurred speech, No vomiting, No vision changes Allergies/Adverse Reactions: Penicillins Allergy (Severe, Verified 07/26/22 18:29) Difficulty Breathing shellfish derived Allergy (Severe, Verified 07/26/22 18:29) swelling and stop breathing. codeine Allergy (Mild, Verified 07/26/22 18:29) Hives aspirin Allergy (Verified 07/26/22 18:29) ibuprofen [From Motrin] Allergy (Verified 07/26/22 18:29) cephalexin [From Keflex] Adverse Reaction (Verified 07/26/22 18:29) Home Medications: ARIPiprazole [Abilify] 5 mg PO HS 07/15/17 [History] Folic Acid 1 mg [Folate 1 mg] 1 mg PO DAILY 07/15/17 [History] Furosemide 40 mg [Lasix 40 MG] 40 mg PO DAILY PRN 07/15/17 [History] Potassium Chloride Tab* [Klor Con] 10 meq PO DAILY PRN 07/15/17 [History] ALPRAZolam [Alprazolam] 0.5 mg PO TID PRN 03/09/21 [History] Duloxetine HCl 30 mg [Cymbalta 30 MG Capsule] 90 mg PO HS 03/09/21 [History] Pregabalin [Lyrica 100Mg] 200 mg PO TID 03/09/21 [History] Hx Tetanus, Diphtheria Vaccination/Date Given: Yes Hx Influenza Vaccination/Date Given: No Hx Pneumococcal Vaccination/Date Given: No Immunizations Up to Date: Yes Travel Risk - International Travel Have you traveled outside of the country in past 3 weeks: No - Coronavirus Screening Are you exhibiting any of the following symptoms?: No Close contact with a COVID-19 positive Pt in past 14-21 Days: No - Vaccine Status Have you recieved a Covid-19 vaccination: Yes Asp Web Developer: Unknown - Vaccination Dates Dates if Unknown: unk - Review of Systems Constitutional: No Symptoms Eyes: No Symptoms, Other Ears, Nose, & Throat: No Symptoms Respiratory: No Symptoms Cardiac: No Symptoms Abdominal/Gastrointestinal: No Symptoms Genitourinary Symptoms: No Symptoms Musculoskeletal: Arthralgias Skin: No Symptoms Neurological: Sensory Changes Psychological: No Symptoms Endocrine: No Symptoms Hematologic/Lymphatic: No Symptoms Immunological/Allergic: No Symptoms - Past Medical History Pertinent Past Medical History: Yes Neurological History: Other ENT History: No Pertinent History Cardiac History: No Pertinent History, Arrhythmia Respiratory History: Asthma Endocrine Medical History: Liver Disease Musculoskeletal History: Arthritis, Fractures GI Medical History: Ulcer History: Other Psycho-Social History: Depression, Other Female Reproductive Disorders: No Pertinent History Other Medical History: HAD UNKNOWN ORIGIN SPINAL INFECTION (WASN'T MENINGITIS) REQUIRING IV ANTIBIOTICS. WAS INITIALLY DX'D WITH MYASTHENIA GRAVIS BUT WAS RULED OUT STATING RESIDUAL NEUROPATHY WAS DUE TO SPINAL INFECTION. ALSO AFTER SPINAL INFECTION HAD EPISODE OF UNRESPONSIVENESS AND HAD ACUTE KIDNEY FAILURE. SEES KIDNEY SPECIALIST EVERY 6 MONTHS. - Past Surgical History Past Surgical History: Yes Neuro Surgical History: No Pertinent History Cardiac: No Pertinent History Respiratory: No Pertinent History Gastrointestinal: No Pertinent History Musculoskeletal: Orthopedic Surgery Female Surgical History: Hysterectomy, Section Other Surgical History: RIGHT ARM X2 - Social History Smoking Status: Never smoker Exposure to second hand smoke: No Alcohol Use: None Drug Use: none Patient Lives Alone: Yes Significant Family History: no pertinent family hx - Nursing Vital Signs Nursing Vital Signs: Initial Vital Signs Temperature 98 F 07/26/22 18:17 Pulse Rate 80 07/26/22 18:17 Respiratory Rate 18 07/26/22 18:17 Blood Pressure 111/63 07/26/22 18:17 O2 Sat by Pulse Oximetry 96 07/26/22 18:17 Pain Scale Pain Intensity 8 - Jony Coma Score Best Eye Response (Jony): (4) open spontaneously Best Verbal Response ([place]): (5) oriented Best Motor Response ([place]): (6) obeys commands Jony Total: 15 - Physical Exam General Appearance: no apparent distress, alert Head Injury: ecchymosis, tenderness (Bilateral maxilla), No active bleeding, No Davidson's Sign, No contusions, No swelling Eye Exam: PERRL/EOMI, other ENT Exam: airway nml, nml ext.inspection, No evidence of ENT injury, No dental injury Neck Exam: supple, trachea midline, full range of motion, normal alignment, normal inspection, No focal neuro deficit, No limited range of motion Respiratory/Chest Exam: normal breath sounds, respiratory distress, No chest tenderness Cardiovascular Exam: normal heart sounds, regular rate/rhythm Gastrointestinal Exam: soft, normal bowel sounds, No tenderness Back Exam: normal inspection, normal range of motion Extremity Exam: normal inspection, normal range of motion, capillary refill <3 sec, pelvis stable Neurologic Exam: alert, oriented x 3, cooperative, accreditation coordinator II-XII nml as tested, normal mood/affect, sensation nml, No motor deficits Skin Exam: normal color SpO2 Interpretation: normal SpO2: 96 O2 Delivery: Room Air Ordered Tests: Active Orders 24 hr Category Date Time Status CERVICAL SPINE WO CONTRAST [CT] Stat Exams 07/26/22 18:28 Taken FACIAL BONES WO CONTRAST [CT] Stat Exams 07/26/22 18:28 Taken HEAD WITHOUT CONTRAST [CT] Stat Exams 07/26/22 18:28 Taken Medication Summary Discontinued Medications Generic Name Dose Route Start Last Admin Trade Name Cristina PRN Reason Stop Dose Admin Acetaminophen 975 mg 07/26/22 18:28 07/26/22 18:46 Acetaminophen 325 Mg Tablet PO 07/26/22 18:29 975 mg STAT STA Administration Acetaminophen Confirm 07/26/22 18:44 Acetaminophen 325 Mg Tablet Administered 07/26/22 18:45 Dose 975 mg .ROUTE .STK-MED ONE - Progress Progress: improved Progress Note: 07/26/22 19:43 She is given Tylenol for symptomatic relief, on reevaluation feeling better. CT head and cervical spine negative for any acute trauma related findings. CT facial bones showed some contusion but no fracture. Has intact range of motion of both eyeballs. Not in any distress. It is a clear mechanical fall, do not think needs any other work-up. Recommended ice application, Tylenol and outpatient follow-up. Discussed signs symptoms of worsening needing return to ER which she seems understanding. Stable for discharge. Counseled pt/family regarding: diagnosis, need for follow-up, rad results - Departure Departure Disposition: Home Clinical Impression: Facial contusion, Ground-level fall Condition: Stable Critical Care Time: No Referrals: KIA ANNE MD [Primary Care Provider] - Follow up/PCP as directed (1-2 days for reevaluation) Instructions: Preventing Falls in Older Adults, Contusion (DC) Additional Instructions: Use Tylenol for pain as needed. Intermittent ice application. Use cane/walker for ambulation all the time. Follow-up with primary care for reevaluation. Return to ER for any worsening.
[2022-07-26 19:50] VITALS: BP 92/54; PULSE 68; O2SAT 97
--- NOTE | 2022-07-26 21:00 | XRAY ---
Indication: Facial injury/hematomas following fall. Multiple contiguous axial images obtained through the head without contrast. Comparison: March 11, 2021 Normal appearing brain parenchyma, ventricles, and bony calvarium for patient's age. Visualized paranasal sinuses and mastoid air cells are clear. CT cervical spine and CT facial bones reported separately. Impression: Continued normal CT head without contrast exam. Comment: Preliminary interpretation made by [facility]. No critical discrepancy.
--- NOTE | 2022-07-26 21:02 | XRAY ---
Indication: Facial injury/hematomas following fall. Multiple contiguous axial images obtained through the facial bones. Sagittal and coronal reformatted images obtained. Comparison: None Patient is edentulous. Mild lateral left periorbital soft tissue swelling. No acute fracture, suspicious bony lesions, or radiopaque foreign body. Orbits including roof, barron, and floors intact. Paranasal sinuses and nasal passages are clear. Mild nasal septal deviation to the right. Mild bilateral TMJ degenerative changes. Remaining visualized noncontrasted soft tissues are unremarkable. CT cervical spine and CT head reported separately. Impression: 1. Mild left periorbital soft tissue swelling, mild nasal septal deviation, and mild bilateral TMJ degenerative changes. 2. Remaining CT facial bones negative. Comment: Preliminary interpretation made by C. No critical discrepancy.
--- NOTE | 2022-07-26 21:06 | XRAY ---
Indication: Facial injury/hematomas following fall. Multiple contiguous axial images obtained through the cervical spine. Sagittal and coronal reformatted images obtained. Comparison: February 17, 2017 Axial images again negative for acute fracture, suspicious bony lesions, or spinal canal stenosis. Again mild C3-C7 degenerative endplate spurring and mild multilevel bilateral degenerative facet arthropathy. Sagittal and coronal reformatted images again demonstrates 2 evident 3 mm retrolisthesis C3 on C4. There remains multilevel degenerative disc space narrowing. No acute compression fracture, subluxation, or jumped facet. Normal appearing craniocervical junction. The visualized noncontrasted soft tissues including lung apices are unremarkable. CT facial bones and CT head reported separately. Impression: 1. Continued negative acute fracture/subluxation. 2. Again multilevel degenerative spondylosis and grade 1 C3 retrolisthesis. Comment: Preliminary interpretation made by [facility]. No critical discrepancy.
== END 2022-07-26 19:50 | disposition home or self-care (01) ==
LOC: ED 18:12
DX: S00.83XA Contusion of other part of head, initial encounter (principal); W01.198A Fall on same level from slipping, tripping and stumbling with subsequent striking against other object, initial encounter; R51.9 Headache, unspecified; Z79.899 Other long term (current) drug therapy
CPT/HCPCS: 70450; 70486; 72125; 99283; A9270-GY

== ENCOUNTER 2022-10-31 06:19 | Day surgery (SDC) | payer MEDICARE ==
[2022-10-31] MEDS ORDERED: Reglan 10 MG/2 ML IV ONE (07:07)
[2022-10-31] MEDS ORDERED: Xopenex 1.25 MG/0.5 ML UD NEBULE IH ONE (07:07)
[2022-10-31] MEDS ORDERED: Sodium Chloride 3 ML UD NEBULES IH ONE (07:13)
[2022-10-31] MEDS: Pepcid 20 MG VIAL IV ONE (07:19)
[2022-10-31] MEDS ORDERED: Lactated Ringers 1,000 ML IV SCH (07:30)
[2022-10-31 07:43] LABS: Hematocrit 40.4 % (35-47); Hemoglobin 13.4 g/dL (12.0-16.0); Mean Cell Volume 93.3 fL (78-100); Mean Corpuscular Hemoglobin 30.9 pg (26-32); Mean Corpuscular Hgb Concent. 33.2 g/dL (32-36); Mean Platelet Volume 9.6 fL (7.5-11.0); Platelet Count 184 x10^3/uL (150-450); Red Blood Count 4.33 x10^6/uL (4.1-5.4); Red Cell Distribution Width 13.3 % (11.5-14.0); White Blood Count 3.4 x10^3/uL (4.0-10.5)
[2022-10-31 08:03] VITALS: BP 105/65; O2SAT 94
[2022-10-31 08:06] LABS: ALBUMIN 4.1 g/dL (3.5-5.0); ALKALINE PHOSPHATASE 60 U/L (38-126); ANION GAP 13.2 MEQ/L (5-15); BLOOD UREA NITROGEN 15 mg/dL (7-17); CHLORIDE 105 mmol/L (98-107); Calcium 9.1 mg/dL (8.4-10.2); Carbon Dioxide 28 mmol/L (22-30); EST GLOMERULAR FILTRATION RATE > 60.0 ML/MIN; Glucose 82 mg/dL (74-106); Potassium 4.2 mmol/L (3.5-5.1); SGOT/AST 26 U/L (14-36); SGPT/ALT 18 U/L (0-35); SODIUM 142 mmol/L (137-145); Total Protein 6.7 g/dL (6.3-8.2)
[2022-10-31 08:14] LABS: INR 0.97 (0.8-3.0); PROTIME 10.6 SECONDS (9.4-12.5); PTT 23.7 SECONDS (25.1-36.5)
[2022-10-31 08:27] VITALS: PULSE 66
[2022-10-31] MEDS ORDERED: CLINDAMYCIN-D5W 900 MG/50 ML*** 900 MG/50 ML BAG IV SCH (08:30)
== END 2022-10-31 09:00 | disposition home or self-care (01) ==
LOC: SDC 06:19
PROVIDERS: ATTEND Podiatrist Foot & Ankle Surgery
DX: Z53.8 Procedure and treatment not carried out for other reasons (principal); R79.9 Abnormal finding of blood chemistry, unspecified
CPT/HCPCS: 36415; 80053; 85027; 85610; 85730; 94640; A9270-GY

== ENCOUNTER 2022-11-14 07:25 | Day surgery (SDC) | payer MEDICARE ==
[~2022-11-14 07:25] MED LIST: Marcaine Mpf 0.5% Vial 30 Ml ONE; Xylocaine 1% Vial 30 ML PF IJ ONE
[2022-11-14] MEDS ORDERED: CLINDAMYCIN-D5W 900 MG/50 ML*** 900 MG/50 ML BAG IV STA (07:31)
[2022-11-14] MEDS ORDERED: Pepcid 20 MG PO ONE (07:32)
[2022-11-14] MEDS ORDERED: Xopenex 1.25 MG/0.5 ML UD NEBULE IH ONE ×2 (07:32→08:06)
[2022-11-14] MEDS ORDERED: Reglan 10 MG/2 ML IV ONE (07:32)
[2022-11-14] MEDS ORDERED: Reglan 10 MG/2 ML ONE (07:44)
[2022-11-14] MEDS ORDERED: Lactated Ringers 1,000 ML IV ONE ×2 (07:44→12:38)
[2022-11-14] MEDS ORDERED: CLINDAMYCIN-D5W 900 MG/50 ML*** 900 MG/50 ML BAG IV ONE (07:44)
[2022-11-14] MEDS ORDERED: Pepcid 20 MG VIAL IV ONE ×2 (07:44→08:07)
[2022-11-14 07:59] LABS: Hematocrit 40.6 % (35-47); Hemoglobin 13.4 g/dL (12.0-16.0); Mean Cell Volume 92.9 fL (78-100); Mean Corpuscular Hemoglobin 30.7 pg (26-32); Mean Platelet Volume 9.5 fL (7.5-11.0); Platelet Count 246 x10^3/uL (150-450); Red Blood Count 4.37 x10^6/uL (4.1-5.4); Red Cell Distribution Width 13.5 % (11.5-14.0); White Blood Count 4.2 x10^3/uL (4.0-10.5)
[2022-11-14] MEDS ORDERED: Lactated Ringers 1,000 ML IV SCH (08:00)
[2022-11-14] MEDS ORDERED: Sodium Chloride 3 ML UD NEBULES IH ONE (08:06)
[2022-11-14 08:12] LABS: ALKALINE PHOSPHATASE 69 U/L (38-126); ANION GAP 11.3 MEQ/L (5-15); BLOOD UREA NITROGEN 12 mg/dL (7-17); CHLORIDE 102 mmol/L (98-107); Calcium 8.7 mg/dL (8.4-10.2); Carbon Dioxide 33 mmol/L (22-30); Creatinine 1 0.66 mg/dL (0.52-1.04); EST GLOMERULAR FILTRATION RATE > 60.0 ML/MIN; Glucose 97 mg/dL (74-106); Potassium 3.8 mmol/L (3.5-5.1); SGOT/AST 25 U/L (14-36); SGPT/ALT 16 U/L (0-35); SODIUM 143 mmol/L (137-145); Total Protein 6.6 g/dL (6.3-8.2)
[2022-11-14 08:14] LABS: INR 0.94 (0.8-3.0); PROTIME 10.3 SECONDS (9.4-12.5); PTT 23.7 SECONDS (25.1-36.5)
[2022-11-14] MEDS ORDERED: TORAdol 30 mg Injection ONE (11:28)
[2022-11-14] MEDS ORDERED: DIPRIVAN 200 MG/20 ML IV ONE (11:28)
[2022-11-14] MEDS ORDERED: Xylocaine-Mpf 2% 5 Ml Vial ONE (11:28)
[2022-11-14] MEDS ORDERED: Zofran 4 MG/2 ML VIAL ONE (11:28)
[2022-11-14] MEDS ORDERED: Decadron 4 MG INJ ONE (11:28)
[2022-11-14] MEDS ORDERED: SUBLIMAZE 100 MCG/2 ML ONE (11:29)
[2022-11-14] MEDS ORDERED: DEXMEDETOMIDINE 80 MCG/20ML-NS IV ONE (11:29)
[2022-11-14] MEDS ORDERED: Quelicin Fliptop 200 MG/10 ML ONE (11:29)
[2022-11-14] MEDS ORDERED: Versed 2 MG/2 ML Injection ONE (11:32)
[2022-11-14] MEDS ORDERED: Pre-Attached Lta Kit TP ONE (11:36)
[2022-11-14] MEDS ORDERED: OFIRMEV 100 ML IV ONE (11:36)
[2022-11-14] MEDS ORDERED: Ephedrine Sulfate 50 MG/ML ONE (12:14)
[2022-11-14] MEDS ORDERED: ROBINUL ONE (12:32)
[2022-11-14] MEDS ORDERED: BREVIBLOC 100 MG/10 ML IV ONE (13:48)
[2022-11-14] MEDS ORDERED: MORPHINE SULFATE 2 MG INJ ONE (15:28)
[2022-11-14] MEDS ORDERED: Hydromorphone 1 mg/ml Injection ONE (15:40)
[2022-11-14 16:15] VITALS: BP 119/72; PULSE 71; O2SAT 95
--- NOTE | 2022-11-14 17:10 | OP ---
SURGERY DATE: 11/14/2022 SURGERY TIME: 1202 PREOPERATIVE DIAGNOSIS: 1. HALLUX MALLEUS LEFT FOOT. 2. HAMMERTOES 2-5. 3. PAIN LEFT FOOT. 4. DIFFICULTY WITH AMBULATION. POSTOPERATIVE DIAGNOSIS: 1. HALLUX MALLEUS LEFT FOOT. 2. HAMMERTOES 2-5. 3. PAIN LEFT FOOT. 4. DIFFICULTY WITH AMBULATION. PROCEDURE: 1. Langley tenosuspension with extensor hallucis longus tendon transfer. 2. Hallux interphalangeal joint arthrodesis. 3. Hammertoe correction with arthrodesis of interphalangeal joint 2, 3, and 4. 4. Derotational arthroplasty of 5th digit. 5. Extensor tendon lengthening for 2nd, 3rd, and 4th digits. 6. Capsulotomy performed at metatarsophalangeal joints 2-5. SURGEON: Chad Mcqueen D.P.M. MERCANTILE REPORTER: None. ANESTHESIA: General plus a preoperative local block consisting of 30 cc of a 1:1 mixture of 1% Lidocaine plain and 0.5% Bupivicaine plain injected in an ankle block type fashion. HEMOSTASIS: A thigh tourniquet set to 300 mm Hg for 120 total tourniquet minutes. ESTIMATED BLOOD LOSS: Less than 10 cc. MATERIALS: A 4.0 X 40 VPC screw with a 5 X 10 Quattro bolt for Langley tenosuspension. A 2.5 X 36, 2.5 X 34, and 2.5 X 26 headless compression screw for digits 2, 3, and 4 respectively. 4-0 Monocryl, 3-0 Nylon, 4-0 Nylon. INJECTABLES: 30 cc of a 1:1 mixture of 1% Lidocaine plain and 0.5% Bupivicaine plain injected in an ankle block type fashion preoperatively. INDICATIONS FOR PROCEDURE: Gayla is a very pleasant 62-year-old female who presented to my clinic with concerns of contracted digits to the left lower extremity. The patient does have some evidence of extensor substitution as there is hallux malleus and clawing of the toes to the left lower extremity. Patient has failed conservative therapy which was recommended for her nearly a year ago. At this time she is adamant she would like to proceed with surgical intervention. Patient was scheduled several weeks ago. However, there was an issue in regards to her WBC count which has been addressed by her primary care at this time and there is little concern at this point. At this time, the patient wishes to proceed understanding all risks, complications, and benefits of surgical intervention. This includes, but is not limited to, infection; hematoma; seroma; possibility of delayed wound healing; non-wound healing; possibility of non-bone healing; possibility of delay in bone healing; possibility of failure of surgical intervention; possible failure of surgical hardware and need for revision at a later date. The patient understands all this and has had plenty of time for questions to be asked and answered to the patient's apparent satisfaction. No guarantees were provided as to the outcome of surgical intervention. It is with that, we decided to proceed. DESCRIPTION OF PROCEDURE: The patient was brought into the OR. Placed on the OR table in the supine position at this time. General anesthesia was administered until the patient was sedated. At this time, a thigh tourniquet was applied to the patient's left thigh. The tourniquet was set to 350 mm Hg and the left lower extremity was prepped and draped in the typical sterile fashion at this time. At this time, attention was directed to the dorsal aspect of the 1st metatarsophalangeal joint where a linear incision was made just medial to the extensor hallucis longus tendon which was bowstrung even under general anesthesia. At this time, the extensor hallucis longus tendon was freed of its soft tissue attachments being careful not to damage any neurovascular structures along the way. The tendon then was released distally and a whipstitch was introduced. At this time, this was held to the side while the interphalangeal joint fusion took place. At this time, a 15 blade was utilized to resect the hallux interphalangeal joint. The sagittal saw was then utilized to make cuts at the distal aspect of the proximal phalanx and base of the distal phalanx. This area was then fenestrated. Copious amounts of sterile saline were utilized to flush the site. The site was then fenestrated utilizing a 2.0 drill bit and a K-wire was then retrograded out of the tip of the toe and then anterograded down the proximal phalanx in a clinically acceptable appearing fashion. At this time, the 4.0 X 40 VPC screw was introduced from the distal tip of the toe gaining great compression through the arthrodesis site. At this time, attention then was directed to the tendon that was whipstitched. A 4 mm drill for the tenodesis was utilized to make a hole at the dorsal and plantar aspects of the 1st metatarsal. The tendon was passed through the hole and under tension, was secured with a 5 X 10 Quattro bolt. At this time, this was deemed to be adequate. Attention then was directed to the dorsal aspect of digits 2, 3, and 4 where once again the extensor digitorum longus tendons were bowstrung. Incision was made just medial to each of these extensor hallucis longus tendons. The tendons were then lengthened in a V lengthening type form in the same fashion for each one. These were held out of the surgical site utilizing mini-curved hemostats. Following this, the capsulotomy took place and a significant amount of contracture that was noted at the metatarsophalangeal joint, the dorsiflexure contraction noted at the metatarsophalangeal joint resolved slightly. At this time, attention was turned to the proximal interphalangeal joints of digits 2, 3, and 4 where in a similar fashion for all 3, the proximal phalangeal joint, proximal phalanx head, and the base of the middle phalanx were resected out under fluoroscopic guidance. K-wires were then utilized to retrograde out the tip of the toe being central to the distal and middle phalanx and then retrograded centrally down the proximal phalanx of digits 2, 3, and 4 making sure to the entire length of medullary. A 2.5 X 36, a 2.5 X 34, and a 2.5 X 26 were used for the 2nd, 3rd, and 4th digits respectively. Following this, a capsulotomy and an extensor digitorum longus tendon resection was performed of the 5th digit allowing the sagittal plane deformity to fall into normal alignment. Following this, a derotational skin wedge was taken out of the 5th toe. An arthroplasty then was performed and with use of the skin edges, the toe was brought into the appropriate position. At this time, copious amounts of sterile saline were utilized to flush the surgical site. A 4-0 Monocryl was then utilize to coapt the tendons in their positions. The subcutaneous edges were coapted utilizing a simple buried interrupted type stitch with 4-0 Monocryl and then 4-0 Nylon was utilized for the toes and 3-0 Nylon for the 1st metatarsophalangeal joint closure in a horizontal mattress type fashion. The leg was cleansed. Tourniquet was let down at a total of 120 total tourniquet minutes. Hibiclens was utilized to cleanse the leg. A dressing consisting of Adaptic, 4 X 4, Kerlix, and Calvin was applied to the patient's left lower extremity. The patient then was reversed from anesthesia and returned to the PACU with vital signs stable and vascular status intact. The patient handled the anesthesia as well as the procedure without significant complication. Postop, the patient was brought into the PACU and a boot was placed to her left lower extremity. POSTOPERATIVE ORDERS: As indicated in the patient's discharge chart.
--- NOTE | 2022-11-17 11:54 | XRAY ---
Indication: Left foot tenosuspension 1st interphalangeal arthrodesis and 2nd/3rd/4th/5th hammertoe correction. Intraoperative fluoroscopy provided for 2 minutes 3 seconds. 18 digital spot images submitted for interpretation ultimately demonstrates fusion 1st-4th toes all with intact traversing screws and partial osteotomy 5th PIP. Correlate with intraoperative findings/report.
== END 2022-11-14 16:29 | disposition home or self-care (01) ==
LOC: SDC 07:25
PROVIDERS: ATTEND Podiatrist Foot & Ankle Surgery
DX: M20.32 Hallux varus (acquired), left foot (principal); M20.42 Other hammer toe(s) (acquired), left foot; M79.672 Pain in left foot; R26.2 Difficulty in walking, not elsewhere classified
CPT/HCPCS: 28270; 28285; 28313; 28760; 36415; 73630; 76000; 80053; 85027; 85610; 85730; 94640; C1713; J0330; J1100; J1170; J1885; J2001; J2250; J2270; J2405; J2704; J3010; A9270-GY

== ENCOUNTER 2023-01-02 05:57 | Day surgery (SDC) | payer MEDICARE ==
[2023-01-02] MEDS ORDERED: Lactated Ringers 1,000 ML IV SCH (06:30)
[2023-01-02] MEDS ORDERED: Marcaine Mpf 0.5% Vial 30 Ml ONE (06:37)
[2023-01-02] MEDS ORDERED: Xylocaine 1% Vial 30 ML PF IJ ONE (06:38)
[2023-01-02] MEDS ORDERED: Zofran 4 MG/2 ML VIAL ONE (06:55)
[2023-01-02] MEDS ORDERED: Pepcid 20 MG VIAL IV ONE ×2 (06:55→06:58)
[2023-01-02] MEDS ORDERED: Transderm Scop 1.5MG Patch ONE (06:55)
[2023-01-02] MEDS ORDERED: Transderm Scop 1.5MG Patch TOP ONE (06:58)
[2023-01-02] MEDS ORDERED: Zofran 4 MG/2 ML VIAL IV STA (06:58)
[2023-01-02 07:04] LABS: Hemoglobin 13.3 g/dL (12.0-16.0); Mean Cell Volume 94.7 fL (78-100); Mean Corpuscular Hemoglobin 30.7 pg (26-32); Mean Corpuscular Hgb Concent. 32.4 g/dL (32-36); Mean Platelet Volume 9.3 fL (7.5-11.0); Platelet Count 227 x10^3/uL (150-450); Red Blood Count 4.33 x10^6/uL (4.1-5.4); Red Cell Distribution Width 13.5 % (11.5-14.0); White Blood Count 4.3 x10^3/uL (4.0-10.5)
[2023-01-02] MEDS ORDERED: DIPRIVAN 200 MG/20 ML IV ONE (07:18)
[2023-01-02] MEDS ORDERED: Xylocaine-Mpf 2% 5 Ml Vial ONE (07:18)
[2023-01-02] MEDS ORDERED: Decadron 4 MG INJ ONE (07:18)
[2023-01-02] MEDS ORDERED: SUBLIMAZE 100 MCG/2 ML ONE ×2 (07:19→08:57)
[2023-01-02] MEDS ORDERED: CLINDAMYCIN-D5W 900 MG/50 ML*** 900 MG/50 ML BAG IV STA (07:22)
[2023-01-02 07:23] LABS: INR 0.92 (0.8-3.0); PROTIME 10.1 SECONDS (9.4-12.5); PTT 23.9 SECONDS (25.1-36.5)
[2023-01-02] MEDS ORDERED: Ephedrine Sulfate 50 MG/ML ONE (08:39)
[2023-01-02 08:40] LABS: ALBUMIN 4.2 g/dL (3.5-5.0); ALKALINE PHOSPHATASE 87 U/L (38-126); ANION GAP 14.7 MEQ/L (5-15); BLOOD UREA NITROGEN 26 mg/dL (7-17); CHLORIDE 102 mmol/L (98-107); Calcium 9.6 mg/dL (8.4-10.2); Carbon Dioxide 29 mmol/L (22-30); Creatinine 1 0.94 mg/dL (0.52-1.04); EST GLOMERULAR FILTRATION RATE > 60.0 ML/MIN; Glucose 98 mg/dL (74-106); Potassium 4.3 mmol/L (3.5-5.1); SGOT/AST 26 U/L (14-36); SGPT/ALT 19 U/L (0-35); SODIUM 141 mmol/L (137-145); Total Protein 7.3 g/dL (6.3-8.2)
[2023-01-02] MEDS ORDERED: Lactated Ringers 1,000 ML IV ONE (08:43)
--- NOTE | 2023-01-02 09:33 | XRAY ---
Indication: Right foot 2nd-4th hammertoe correction. Intraoperative fluoroscopy provided for 1 minute 49 seconds. 18 digital spot images submitted for interpretation demonstrates orthopedic K wires traversing 2nd-4th toes. Correlate with intraoperative findings/report.
[2023-01-02] MEDS ORDERED: Hydromorphone 1 mg/ml Injection ONE (10:12)
[2023-01-02 11:01] VITALS: BP 112/84; PULSE 79; O2SAT 93
--- NOTE | 2023-01-05 11:59 | OP ---
SURGERY DATE/TIME: 01/02/2023 0733 PREOPERATIVE DIAGNOSES: 1) Right hammer toes to digits 2, 3, 4 and 5. 2) Pain right foot. 3) Difficulty with ambulation. 4) Metatarsal deformity. POSTOPERATIVE DIAGNOSES: 1) Right hammer toes to digits 2, 3, 4 and 5. 2) Pain right foot. 3) Difficulty with ambulation. 4) Metatarsal deformity. PROCEDURES: 1) Hammer toe correction with proximal interphalangeal joint arthrodesis 2, 3 and 4 right foot. 2) Derotational arthroplasty fifth digit right foot. 3) True osteotomy second metatarsal right foot. 4) Extensor tendon lengthening second metatarsal second digit right foot. 5) Capsulotomy performed to fourth and fifth metatarsophalangeal joints right foot. SURGEON: Chad Mcqueen DPM. MEDICAL RECORD ASSISTANT: None. ANESTHESIA: General. HEMOSTASIS: Ankle tourniquet set to 250 mm of Mercury for 90 total tourniquet minutes. INJECTABLES: 30 cc of a 1:1 mixture of 1% lidocaine plain and 0.5% bupivacaine plain injected in an ankle block-type fashion. 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 The patient in the last eight weeks had a procedure to the left lower extremity with great success. The patient has had a significant improvement in her pain and even the paresthesia and neuropathy that she was experiencing before seems to have subsided to some degree as well. The patient is ecstatic with the relief that she got and is looking forward to proceeding with her right foot at this time. The patient does not have as bad of contracture to the right foot and for this reason we are only addressing digits 2 through 4. The patient understands all risks, benefits and complications of the surgical intervention at this time including but not limited to infection, hematoma, seroma, possibility of delayed wound healing, nonwound healing and possibility of need for further surgical intervention at a later date. There is also the possibility of nonunion of the arthrodesis site. She understands these risks and wishes to proceed. Plenty of time was allowed for the patient to ask questions which were answered to the patient's apparent satisfaction. No guarantees were provided as to the outcome. It is with that we decided to proceed. DESCRIPTION OF PROCEDURE AND FINDINGS: The patient was brought into the OR and placed on the OR table in the supine position. At this time, adequate general anesthesia was administered until the patient was sedated. The patient's right lower extremity had a well-padded ankle tourniquet applied to the right ankle at the level of the malleolus and was set to 250 mm of Mercury. At this time the right foot was prepped and draped in the typical sterile fashion and lowered onto the surgical field. At this time attention was directed to the second metatarsophalangeal joint where in a loaded position there was a dorsal contracture of the second metatarsophalangeal joint. An Esmarch was utilized to exsanguinate the foot. The tourniquet was inflated to 250 mm of Mercury. At this time attention was directed to the dorsal aspect of the second metatarsal head. Following this, a 15 blade was utilized to make careful dissection being careful not to damage any neurovascular structures going down to the level of the extensor digitorum longus of the second metatarsal. An extensor tendon lengthening was performed doing a Z-lengthening osteotomy and retracting the tendon out of the way. At this time the metatarsal head was identified and a capsulotomy was performed. An 18 blade sagittal saw was then utilized to cut the metatarsal head at the dorsal aspect of the capsule fragment parallel to the weightbearing surface this was shifted back and pinned. At this time a 2.0 x 14 small head cannulated screw was introduced. At this time the position was checked and the metatarsal parabola was restored. Following this, attention was directed to the second, third and fourth digits where a similar procedure was carried out. Linear incisions were carried out over the retracted digits where the capsule was dissected out at the proximal interphalangeal joint. The proximal interphalangeal head and the base of the middle phalanx were resected out of each of these sites. Copious amounts of sterile saline were utilized to flush the site. K-wires were then retrograded out of the distal tip of the toes and then the dorsal longitudinal cortex of the proximal phalanx was utilized as a guide for the guidewire to be placed into the medullary cavity of the bone. Following this, checking under fluoroscopic guidance, a 2.5 x 36 mm, 2.5 x 34 mm and 2.5 x 26 mm were introduced into the second, third and fourth digits respectively, this was checked and deemed to be in an adequate position. At this time, a 15 blade was then utilized to perform a derotational arthroplasty to the fifth digit. A skin wedge was taken out in order to rotate the digit with closure. The fifth digit proximal phalangeal head was resected out and this was checked under fluoroscopy and the skin was coapted utilizing 3-0 Nylon in horizontal mattress-type fashion to elevate the digit from its contracted position. All incisions were then cleansed with copious amounts of sterile saline. The tendons were then repaired from the extensor tendon lengthening. Capsulotomies were performed to the fourth and fifth digits for some residual contractures at this time. 4-0 Monocryl was utilized to coapt the subcutaneous skin edges and 3-0 Nylon was utilized in a horizontal mattress-type fashion to coapt the skin. A dressing consisting of Betadine, Adaptic, 4x4, Kerlix and CHANDLER was then applied to the patient's right foot with the foot orthogonal relative to longitudinal axis of the leg. At this time, the patient was then reversed from anesthesia and returned to the postoperative anesthesia care unit with vital signs stable and vascular status intact. The patient handled the anesthesia as well as the procedure without significant complication. Postoperative orders as indicated in the patient's discharge chart.
== END 2023-01-02 11:23 | disposition home or self-care (01) ==
LOC: SDC 05:57
PROVIDERS: ATTEND Podiatrist Foot & Ankle Surgery
DX: M20.41 Other hammer toe(s) (acquired), right foot (principal); M79.671 Pain in right foot; R26.2 Difficulty in walking, not elsewhere classified; M21.961 Unspecified acquired deformity of right lower leg; I10 Essential (primary) hypertension
CPT/HCPCS: 28270; 28285; 28308; 36415; 73630; 76000; 80053; 85027; 85610; 85730; C1713; J1100; J1170; J2001; J2405; J2704; J3010; A9270-GY

== ENCOUNTER 2023-02-01 09:04 | Observation (INO) | payer MEDICARE ==
[2023-02-01 09:40] LABS: BASOPHIL % 0.9 % (0.0-0.4); Basophil (Absolute #) 0.05 x10^3/uL (0-0.4); Eosinophil % 0.6 % (0.00-5.0); Eosinophil (Absolute #) 0.03 x10^3/uL (0-0.5); Hematocrit 42.9 % (35-47); IMMATURE GRAN # 0.03 x10^3u/L (0.00-0.03); IMMATURE GRAN % 0.6 % (0.00-0.4); Lymphocyte (Absolute #) 1.25 x10^3/uL (1.0-4.6); Lymphocytes % 23.2 % (24.0-44.0); Mean Cell Volume 94.1 fL (78-100); Mean Corpuscular Hemoglobin 30.7 pg (26-32); Mean Corpuscular Hgb Concent. 32.6 g/dL (32-36); Mean Platelet Volume 9.7 fL (7.5-11.0); Monocyte (Absolute #) 0.33 x10^3/uL (0.0-1.3); Monocytes % 6.1 % (0.0-12.0); Neutrophil % 68.6 % (36.0-66.0); Platelet Count 232 x10^3/uL (150-450); Red Blood Count 4.56 x10^6/uL (4.1-5.4); Red Cell Distribution Width 13.3 % (11.5-14.0); White Blood Count 5.4 x10^3/uL (4.0-10.5)
[2023-02-01 09:54] LABS: ALBUMIN 4.6 g/dL (3.5-5.0); ALKALINE PHOSPHATASE 115 U/L (38-126); ANION GAP 15.9 MEQ/L (5-15); BLOOD UREA NITROGEN 19 mg/dL (7-17); CHLORIDE 98 mmol/L (98-107); Calcium 9.4 mg/dL (8.4-10.2); Carbon Dioxide 26 mmol/L (22-30); Creatinine 1 0.83 mg/dL (0.52-1.04); EST GLOMERULAR FILTRATION RATE > 60.0 ML/MIN; Glucose 89 mg/dL (74-106); Potassium 3.6 mmol/L (3.5-5.1); SGOT/AST 27 U/L (14-36); SGPT/ALT 21 U/L (0-35); SODIUM 137 mmol/L (137-145); Total Protein 7.7 g/dL (6.3-8.2)
--- NOTE | 2023-02-01 10:33 | ERPHSYRPT ---
- History of Present Illness Time Seen by Provider: 02/01/23 09:22 Historian: patient Exam Limitations: no limitations Patient Subjective Stated Complaint: "chest pain and shortness of breath since 1000 pm last night. Triage Nursing Assessment: Patient c/o midsternal chest pain and shortness of breath since 2200 last night. H/o cardiac cath with no blockages, pain persistent, resp easy, color good, no diaphoresis. aaox3, walked in, pleasant mood. appears calm. [facility] states d/t foot surgery. Physician History: 62 years old female with history of hyperlipidemia, anxiety presented in the ER with chief complaint of substernal chest pain since 10 PM last night, intermittent without any significant aggravating or relieving factors. Does report some shortness of breath which is a little more than usual. Does have history of asthma but denies any cough fever or chills. Does report having chest pains in the past with cardiac cath done almost 2 years ago and was negative. Denies palpitations, lower extremity edema or orthopnea. Patient is taking Eliquis after right foot surgery few weeks ago. Timing/Duration: yesterday, intermittent, improved Activities at Onset: rest Quality: aching, dullness Location: substernal Chest Pain Radiation: no radiation Severity of Pain-Max: moderate Severity of Pain-Current: mild Modifying Factors: Improves With: nothing Associated Symptoms: shortness of breath Prior Chest Pain/Cardiac Workup: cardiac cath Nitro Today/Relief: no nitro taken today Aspirin Treatment Today: no aspirin today Allergies/Adverse Reactions: Penicillins Allergy (Severe, Verified 01/02/23 06:26) Difficulty Breathing shellfish derived Allergy (Severe, Verified 01/02/23 06:26) swelling and stop breathing. codeine Allergy (Mild, Verified 01/02/23 06:26) Hives Sulfa (Sulfonamide Antibiotics) Allergy (Unknown, Verified 01/02/23 06:26) Hives aspirin Allergy (Verified 01/02/23 06:26) ibuprofen [From Motrin] Allergy (Verified 01/02/23 06:26) cephalexin [From Keflex] Adverse Reaction (Verified 01/02/23 06:26) Home Medications: Duloxetine HCl 30 mg [Cymbalta 30 MG Capsule] 90 mg PO HS 03/09/21 [History] Pregabalin [Lyrica 100Mg] 200 mg PO TID 03/09/21 [History] ALPRAZolam 1 MG [Xanax 1 mg] 0.5 mg PO TID PRN 10/24/22 [History] Atorvastatin Calcium 20 mg PO DAILY 10/24/22 [History] Cyanocobalamin 1000 Mcg/ml [Cyanocobalamin B-12 1000 MCG/ML] 1 ml IM UD 10/24/22 [History] Nitroglycerin [Nitro-Bid] 1 cap PO DAILY PRN PRN 10/24/22 [History] Ranolazine [Ranolazine ER] 500 mg PO BID 10/24/22 [History] Semaglutide [Ozempic] 0.5 mg SQ WEEKLY 10/24/22 [History] Hx Tetanus, Diphtheria Vaccination/Date Given: Yes Hx Influenza Vaccination/Date Given: No Hx Pneumococcal Vaccination/Date Given: No Travel Risk - International Travel Have you traveled outside of the country in past 3 weeks: No - Coronavirus Screening Are you exhibiting any of the following symptoms?: Yes Symptoms: Shortness of Breath - Vaccine Status Have you recieved a Covid-19 vaccination: Yes 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: [employer] - Vaccination Dates Date of 2cond Vaccination (if applicable): 2020 - Review of Systems Constitutional: No Symptoms Eyes: No Symptoms Ears, Nose, & Throat: No Symptoms Respiratory: Dyspnea Cardiac: Chest Pain Abdominal/Gastrointestinal: No Symptoms Genitourinary Symptoms: No Symptoms Musculoskeletal: Arthralgias Skin: No Symptoms Neurological: No Symptoms Psychological: Anxiety Endocrine: No Symptoms Hematologic/Lymphatic: No Symptoms Immunological/Allergic: No Symptoms - Past Medical History Pertinent Past Medical History: Yes Neurological History: Peripheral Neuropathy, Other ENT History: No Pertinent History Cardiac History: Angina, Other Respiratory History: Asthma, Sleep Apnea Endocrine Medical History: Liver Disease, Other Musculoskeletal History: Fractures, Other GI Medical History: Ulcer History: Other Psycho-Social History: Depression, Other Female Reproductive Disorders: No Pertinent History Other Medical History: FATTY LIVER DISEASE, PATIENT REPORTS MONITORED FOR KIDNEY FUNCTION YEARLY, "LEAKY" VALVES, HX FX RIGHT WRIST WITH ORIF, ELBOW (HX OF RADIAL HEAD REMOVAL) AND HAND. ANXIETY, DEPRESSION - Past Surgical History Past Surgical History: Yes Neuro Surgical History: No Pertinent History Cardiac: Cardiac Catheterization Respiratory: No Pertinent History Gastrointestinal: Other Genitourinary: No Pertinent History Musculoskeletal: Orthopedic Surgery Female Surgical History: Section, Tubal Ligation Other Surgical History: RIGHT ARM X2. spinal cord stim placed. liver biopsy. left foot hammer toe correction - Social History Smoking Status: Never smoker Exposure to second hand smoke: No Alcohol Use: None Drug Use: none Patient Lives Alone: Yes Significant Family History: no pertinent family hx - Nursing Vital Signs Nursing Vital Signs: Initial Vital Signs Pulse Rate 83 02/01/23 09:06 Respiratory Rate 14 02/01/23 09:06 Blood Pressure 187/119 02/01/23 09:06 O2 Sat by Pulse Oximetry 94 L 02/01/23 09:06 Pain Scale Pain Intensity 4 - Physical Exam General Appearance: no apparent distress, alert Eye Exam: PERRL/EOMI Ears, Nose, Throat Exam: normal ENT inspection, TMs normal, pharynx normal, moist mucous membranes Neck Exam: normal inspection, non-tender, supple, full range of motion Respiratory Exam: normal breath sounds, lungs clear Cardiovascular Exam: regular rate/rhythm, normal heart sounds Gastrointestinal/Abdomen Exam: soft, normal bowel sounds, No tenderness Back Exam: normal inspection Extremity Exam: normal inspection, normal range of motion Neurologic Exam: alert, oriented x 3, cooperative Skin Exam: normal color SpO2 Interpretation: normal SpO2: 99 O2 Delivery: Room Air - Course EKG Interpreted by Me: RATE ([id number]), Sinus Rhythm, NORMAL AXIS, NORMAL INTERVALS, NORMAL QRS Ordered Tests: Active Orders 24 hr Category Date Time Status Mgmt Specialist STAT Care 02/01/23 09:29 Active EKG-ER Only STAT Care 02/01/23 09:29 Active IV Insertion STAT Care 02/01/23 09:29 Active CHEST 1 VIEW (PORTABLE) Stat Exams 02/01/23 09:29 Taken CBC W DIFF Stat Lab 02/01/23 09:35 Completed CMP Stat Lab 02/01/23 09:35 Completed NT PRO BNPII Stat Lab 02/01/23 09:35 Completed TROPONIN Q4H Lab 02/01/23 09:35 Completed TROPONIN Q4H Lab 02/01/23 13:30 Ordered TROPONIN Q4H Lab 02/01/23 17:30 Ordered Transfer Order Routine Transfer 02/01/23 Ordered Lab/Rad Data: Laboratory Result Diagrams 02/01/23 09:35 02/01/23 09:35 Laboratory Results 02/01/23 02/01/23 02/01/23 Range/Units 09:35 09:35 09:35 WBC (4.0-10.5) x10^3/uL RBC (4.1-5.4) x10^6/uL Hgb (12.0-16.0) g/dL Hct (35-47) % MCV (78-100) fL MCH (26-32) pg MCHC (32-36) g/dL RDW (11.5-14.0) % Plt Count (150-450) x10^3/uL MPV (7.5-11.0) fL Gran % (36.0-66.0) % Immature Gran % (Auto) (0.00-0.4) % Nucleat RBC Rel Count (0.00-0.1) % Eos # (Auto) (0-0.5) x10^3/uL Immature Gran # (Auto) (0.00-0.03) x10^3u/L Absolute Lymphs (auto) (1.0-4.6) x10^3/uL Absolute Monos (auto) (0.0-1.3) x10^3/uL Absolute Nucleated RBC (0.00-0.01) x10^3u/L Lymphocytes % (24.0-44.0) % Monocytes % (0.0-12.0) % Eosinophils % (0.00-5.0) % Basophils % (0.0-0.4) % Absolute Granulocytes (1.4-6.9) x10^3/uL Basophils # (0-0.4) x10^3/uL Sodium 137 (137-145) mmol/L Potassium 3.6 (3.5-5.1) mmol/L Chloride 98 (98-107) mmol/L Carbon Dioxide 26 (22-30) mmol/L Anion Gap 15.9 H (5-15) MEQ/L BUN 19 H (7-17) mg/dL Creatinine 0.83 (0.52-1.04) mg/dL Estimated GFR > 60.0 ML/MIN Glucose 89 (74-106) mg/dL Calcium 9.4 (8.4-10.2) mg/dL Total Bilirubin 0.90 (0.2-1.3) mg/dL AST 27 (14-36) U/L ALT 21 (0-35) U/L Alkaline Phosphatase 115 (38-126) U/L Troponin I < 0.012 (0.000-0.034) ng/mL NT-Pro-B Natriuret Pep 145 (<300) pg/mL Serum Total Protein 7.7 (6.3-8.2) g/dL Albumin 4.6 (3.5-5.0) g/dL 02/01/23 Range/Units 09:35 WBC 5.4 (4.0-10.5) x10^3/uL RBC 4.56 (4.1-5.4) x10^6/uL Hgb 14.0 (12.0-16.0) g/dL Hct 42.9 (35-47) % MCV 94.1 (78-100) fL MCH 30.7 (26-32) pg MCHC 32.6 (32-36) g/dL RDW 13.3 (11.5-14.0) % Plt Count 232 (150-450) x10^3/uL MPV 9.7 (7.5-11.0) fL Gran % 68.6 H (36.0-66.0) % Immature Gran % (Auto) 0.6 H (0.00-0.4) % Nucleat RBC Rel Count 0.0 (0.00-0.1) % Eos # (Auto) 0.03 (0-0.5) x10^3/uL Immature Gran # (Auto) 0.03 (0.00-0.03) x10^3u/L Absolute Lymphs (auto) 1.25 (1.0-4.6) x10^3/uL Absolute Monos (auto) 0.33 (0.0-1.3) x10^3/uL Absolute Nucleated RBC 0.00 (0.00-0.01) x10^3u/L Lymphocytes % 23.2 L (24.0-44.0) % Monocytes % 6.1 (0.0-12.0) % Eosinophils % 0.6 (0.00-5.0) % Basophils % 0.9 (0.0-0.4) % Absolute Granulocytes 3.70 (1.4-6.9) x10^3/uL Basophils # 0.05 (0-0.4) x10^3/uL Sodium (137-145) mmol/L Potassium (3.5-5.1) mmol/L Chloride (98-107) mmol/L Carbon Dioxide (22-30) mmol/L Anion Gap (5-15) MEQ/L BUN (7-17) mg/dL Creatinine (0.52-1.04) mg/dL Estimated GFR ML/MIN Glucose (74-106) mg/dL Calcium (8.4-10.2) mg/dL Total Bilirubin (0.2-1.3) mg/dL AST (14-36) U/L ALT (0-35) U/L Alkaline Phosphatase (38-126) U/L Troponin I (0.000-0.034) ng/mL NT-Pro-B Natriuret Pep (<300) pg/mL Serum Total Protein (6.3-8.2) g/dL Albumin (3.5-5.0) g/dL - Progress Progress: unchanged Air Movement: good Progress Note: 02/01/23 10:32 62 years old female with history of hyperlipidemia, anxiety presented in the ER with chief complaint of substernal chest pain since 10 PM last night, intermittent without any significant aggravating or relieving factors. Does report some shortness of breath which is a little more than usual. Does have history of asthma but denies any cough fever or chills. Does report having chest pains in the past with cardiac cath done almost 2 years ago and was negative. Denies palpitations, lower extremity edema or orthopnea. EKG showed sinus rhythm with no ST elevations. Has negative initial troponins. Patient does not want any pain medication, has taken Tylenol extra strength prior to arrival and feeling much better. Chest x-ray negative for any acute cardiopulmonary findings reviewed by me, official report is pending. She is on Eliquis, saturation around 98%, not tachypneic or tachycardic, do not think needs D-dimer or any other work-up for PE. With her intermittent pain since yesterday, discussed with patient about observation admission and trending cardiac enzyme, she agrees with it. We will call/page hospitalist. 02/01/23 11:[address] Olvera, reviewed history, work-up, agreed with admission. Blood Culture(s) Obtained: No Antibiotics given: No Discussed with Dr.: Other Will see patient in: hospital (observation) Counseled pt/family regarding: lab results, diagnosis, rad results Medical Desision Making - Discussion of managment Care discussed with:: hospitalist ( at 1100) Reviewed:: Test results Agreed on:: Treatment plan Will see patient: in hospital - Diagnostic Testing Diagnostic test were ordered, analyzed, and reviewed by me: Yes Radiological Interpretation: Interpreted by me, Reviewed by me - Risk of complications The pt has a high risk of morbidity or mortality based on: Decision regarding hospitilization or escalation of hosp level of care - Departure Departure Disposition: Observation Clinical Impression: Chest pain, rule out acute myocardial infarction Condition: Stable Critical Care Time: No Referrals: KIA ANNE MD [Primary Care Provider] - Follow up/PCP as directed
[2023-02-01] MEDS ORDERED: Zofran 4 MG/2 ML VIAL IV PRN (13:57)
[2023-02-01] MEDS ORDERED: DUONEB 0.5-3 MG/3 ml Neb IH PRN (13:57)
[2023-02-01] MEDS ORDERED: TYLENOL 325 MG PO PRN (13:57)
[2023-02-01] MEDS ORDERED: xanAX 0.5 MG PO PRN (16:57)
[2023-02-01] MEDS ORDERED: Nitrostat 0.4 MG Tablet SL PRN (17:01)
--- NOTE | 2023-02-01 17:43 | PCM.HP ---
History of Present Illness - Chief Complaint Chief Complaint: chest pain r/o Date: 02/01/23 History of Present Illness: is a 62 year old female with a history of hyperlipidemia and anxiety who presented with substernal chest pain since 10 PM last night and associated shortness of breath. She says that approximately 1-2 years ago she experienced similar chest pain and palpitations, and then had an abnormal stress test; she subsequently had a cardiac catheterization with Dr. Paredes which demonstrated no obstruction (no stent deployed). She denies palpitations, lower extremity edema and orthopnea. The patient has been taking prophylactic Eliquis after r ight foot surgery few weeks ago. The patient was seen and examined via telemedicine. The entirety of this encounter was performed via telemedicine. The patient consented to this telemedicine encounter. - Review of Systems Constitutional: No Symptoms Eyes: No Symptoms Ears, Nose, & Throat: No Symptoms Respiratory: Short Of Breath Cardiac: Chest Pain Abdominal/Gastrointestinal: No Symptoms Genitourinary Symptoms: No Symptoms Musculoskeletal: No Symptoms Skin: No Symptoms Neurological: No Symptoms Psychological: No Symptoms Endocrine: No Symptoms Hematologic/Lymphatic: No Symptoms Immunological/Allergic: No Symptoms All Other Systems: Reviewed and Negative Medications & Allergies Home Medications: Home Medication List RX: Duloxetine HCl 30 mg [Cymbalta 30 MG Capsule] 90 mg PO HS 03/09/21 [History Confirmed 02/01/23] RX: Pregabalin [Lyrica 100Mg] 200 mg PO TID 03/09/21 [History Confirmed 02/01/23] RX: ALPRAZolam 1 MG [Xanax 1 mg] 0.5 mg PO TID PRN 10/24/22 [History Confirmed 02/01/23] RX: Atorvastatin Calcium 20 mg PO DAILY 10/24/22 [History Confirmed 02/01/23] RX: Cyanocobalamin 1000 Mcg/ml [Cyanocobalamin B-12 1000 MCG/ML] 1 ml IM UD 10/24/22 [History Confirmed 02/01/23] RX: Nitroglycerin [Nitro-Bid] 1 cap PO DAILY PRN PRN 10/24/22 [History Confirmed 02/01/23] RX: Ranolazine [Ranolazine ER] 500 mg PO BID 10/24/22 [History Confirmed 02/01/23] RX: Semaglutide [Ozempic] 0.5 mg SQ WEEKLY 10/24/22 [History Confirmed 02/01/23] RX: Folic Acid 1 mg [Folate 1 mg] 1 mg PO DAILY 02/01/23 [History Confirmed 02/01/23] Allergies/Adverse Reactions: Allergies Allergy/AdvReac Type Severity Reaction Status Date / Time Penicillins Allergy Severe Difficulty Verified 01/02/23 06:26 Breathing shellfish derived Allergy Severe swelling Verified 01/02/23 06:26 and stop breathing. codeine Allergy Mild Hives Verified 01/02/23 06:26 Sulfa (Sulfonamide Allergy Unknown Hives Verified 01/02/23 06:26 Antibiotics) aspirin Allergy Verified 01/02/23 06:26 ibuprofen [From Motrin] Allergy Verified 01/02/23 06:26 cephalexin [From Keflex] AdvReac Verified 01/02/23 06:26 - Past Medical History Past Medical History: Yes Neurological History: Peripheral Neuropathy, Other ENT History: No Pertinent History Cardiac History: Angina, Other Respiratory History: Asthma, Sleep Apnea Endocrine Medical History: Liver Disease, Other Musculoskelatal History: Fractures, Other GI Medical History: Ulcer History: Other Pyscho-Social History: Depression, Other Reproductive Disorders: No Pertinent History Comment: FATTY LIVER DISEASE, PATIENT REPORTS MONITORED FOR KIDNEY FUNCTION YEARLY, "LEAKY" VALVES, HX FX RIGHT WRIST WITH ORIF, ELBOW (HX OF RADIAL HEAD REMOVAL) AND HAND. ANXIETY, DEPRESSION - Female History Are you now?: No - Past Surgical History Past Surgical History: Yes Neuro Surgical History: No Pertinent History Cardiac History: Cardiac Catheterization Respiratory Surgery: No Pertinent History GI Surgical History: Other Genitourinary Surgical Hx: No Pertinent History Musculskeletal Surgical Hx: Orthopedic Surgery Female Surgical History: Section, Tubal Ligation Other Surgical History: RIGHT ARM X2. spinal cord stim placed. liver biopsy. left foot hammer toe correction - Social History Smoking Status: Never smoker Exposure to second hand smoke: No Alcohol: None Drug Use: none Significant Family History: no pertinent family hx - Physical Exam Vital Signs: Vital Signs - 24 hr Temp Pulse Resp BP BP Pulse Ox 02/01/23 16:00 97.9 F 69 18 138/72 95 02/01/23 13:57 97.9 F 69 18 138/72 95 02/01/23 13:00 131/72 02/01/23 12:30 66 13 138/65 95 02/01/23 12:04 66 17 154/80 97 02/01/23 11:30 67 14 131/64 96 02/01/23 11:05 99 02/01/23 11:00 67 16 137/68 93 L 02/01/23 10:30 66 11 L 139/72 94 L 02/01/23 10:00 71 16 150/78 94 L 02/01/23 09:30 74 13 165/78 97 02/01/23 09:22 80 18 157/78 97 02/01/23 09:18 97.7 F 84 16 157/78 99 02/01/23 09:06 83 14 187/119 94 L General Appearance: no apparent distress Neurologic Exam: alert, oriented x 3, 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, 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, normal mood/affect, nml cerebellar function Eye Exam: PERRL/EOMI, eyes nml inspection Ears, Nose, Throat Exam: normal ENT inspection Neck Exam: normal inspection, non-tender, supple, full range of motion Respiratory Exam: normal breath sounds, lungs clear Cardiovascular Exam: regular rate/rhythm, normal heart sounds Gastrointestinal/Abdomen Exam: soft, normal bowel sounds Back Exam: normal range of motion Extremity Exam: normal inspection, normal range of motion Skin Exam: normal color Results - Labs Lab/Micro Results: Lab Results-Last 24 Hours 02/01/23 02/01/23 02/01/23 Range/Units 09:35 09:35 09:35 WBC 5.4 (4.0-10.5) x10^3/uL RBC 4.56 (4.1-5.4) x10^6/uL Hgb 14.0 (12.0-16.0) g/dL Hct 42.9 (35-47) % MCV 94.1 (78-100) fL MCH 30.7 (26-32) pg MCHC 32.6 (32-36) g/dL RDW 13.3 (11.5-14.0) % Plt Count 232 (150-450) x10^3/uL MPV 9.7 (7.5-11.0) fL Gran % 68.6 H (36.0-66.0) % Immature Gran % (Auto) 0.6 H (0.00-0.4) % Nucleat RBC Rel Count 0.0 (0.00-0.1) % Eos # (Auto) 0.03 (0-0.5) x10^3/uL Immature Gran # (Auto) 0.03 (0.00-0.03) x10^3u/L Absolute Lymphs (auto) 1.25 (1.0-4.6) x10^3/uL Absolute Monos (auto) 0.33 (0.0-1.3) x10^3/uL Absolute Nucleated RBC 0.00 (0.00-0.01) x10^3u/L Lymphocytes % 23.2 L (24.0-44.0) % Monocytes % 6.1 (0.0-12.0) % Eosinophils % 0.6 (0.00-5.0) % Basophils % 0.9 (0.0-0.4) % Absolute Granulocytes 3.70 (1.4-6.9) x10^3/uL Basophils # 0.05 (0-0.4) x10^3/uL Sodium 137 (137-145) mmol/L Potassium 3.6 (3.5-5.1) mmol/L Chloride 98 (98-107) mmol/L Carbon Dioxide 26 (22-30) mmol/L Anion Gap 15.9 H (5-15) MEQ/L BUN 19 H (7-17) mg/dL Creatinine 0.83 (0.52-1.04) mg/dL Estimated GFR > 60.0 ML/MIN Glucose 89 (74-106) mg/dL Calcium 9.4 (8.4-10.2) mg/dL Total Bilirubin 0.90 (0.2-1.3) mg/dL AST 27 (14-36) U/L ALT 21 (0-35) U/L Alkaline Phosphatase 115 (38-126) U/L Troponin I < 0.012 (0.000-0.034) ng/mL NT-Pro-B Natriuret Pep (<300) pg/mL Serum Total Protein 7.7 (6.3-8.2) g/dL Albumin 4.6 (3.5-5.0) g/dL 02/01/23 02/01/23 Range/Units 09:35 11:56 WBC (4.0-10.5) x10^3/uL RBC (4.1-5.4) x10^6/uL Hgb (12.0-16.0) g/dL Hct (35-47) % MCV (78-100) fL MCH (26-32) pg MCHC (32-36) g/dL RDW (11.5-14.0) % Plt Count (150-450) x10^3/uL MPV (7.5-11.0) fL Gran % (36.0-66.0) % Immature Gran % (Auto) (0.00-0.4) % Nucleat RBC Rel Count (0.00-0.1) % Eos # (Auto) (0-0.5) x10^3/uL Immature Gran # (Auto) (0.00-0.03) x10^3u/L Absolute Lymphs (auto) (1.0-4.6) x10^3/uL Absolute Monos (auto) (0.0-1.3) x10^3/uL Absolute Nucleated RBC (0.00-0.01) x10^3u/L Lymphocytes % (24.0-44.0) % Monocytes % (0.0-12.0) % Eosinophils % (0.00-5.0) % Basophils % (0.0-0.4) % Absolute Granulocytes (1.4-6.9) x10^3/uL Basophils # (0-0.4) x10^3/uL Sodium (137-145) mmol/L Potassium (3.5-5.1) mmol/L Chloride (98-107) mmol/L Carbon Dioxide (22-30) mmol/L Anion Gap (5-15) MEQ/L BUN (7-17) mg/dL Creatinine (0.52-1.04) mg/dL Estimated GFR ML/MIN Glucose (74-106) mg/dL Calcium (8.4-10.2) mg/dL Total Bilirubin (0.2-1.3) mg/dL AST (14-36) U/L ALT (0-35) U/L Alkaline Phosphatase (38-126) U/L Troponin I < 0.012 (0.000-0.034) ng/mL NT-Pro-B Natriuret Pep 145 (<300) pg/mL Serum Total Protein (6.3-8.2) g/dL Albumin (3.5-5.0) g/dL - Radiology Impressions Radiology Exams & Impressions: Radiology Procedures Category Date Time Status CHEST 1 VIEW (PORTABLE) Stat Exams 02/01/23 09:29 Taken Assessment/Plan (1) Chest pain, rule out acute myocardial infarction Current Visit: Yes Status: Acute Assessment & Plan: Recently had negative cath 1-2 years ago. Serial cardiac enzymes on telemetry. Code(s): R07.9 - CHEST PAIN, UNSPECIFIED (2) Hyperlipidemia Current Visit: Yes Status: Acute Assessment & Plan: Continue current regimen. Code(s): E78.5 - HYPERLIPIDEMIA, UNSPECIFIED (3) Anxiety Current Visit: No Status: Acute Assessment & Plan: Continue current regimen. Code(s): F41.9 - ANXIETY DISORDER, UNSPECIFIED Telemedicine Encounter - Telemedicine Encounter Telemedicine Encounter: The entirety of this encounter was performed via Telemedicine"
--- NOTE | 2023-02-01 19:10 | XRAY ---
Indication: Chest pain. Comparison: October 12, 2021 Portable chest again demonstrates normal heart and lungs with chunky mediastinal calcified nodes. Bony thorax intact again with osteopenia and mild degenerative changes. No new/acute findings.
[2023-02-01] MEDS: PROTONIX 40 MG IV IV SCH (19:28)
[2023-02-01] MEDS: LYRICA 100MG PO SCH (21:13)
[2023-02-01] MEDS: Ranexa 500 MG PO SCH (21:14)
[2023-02-01] MEDS ORDERED: Cymbalta 30 MG Capsule PO SCH (22:00)
[2023-02-02 05:34] LABS: Absolute Neutrophil Ct (ANC) 2.34 x10^3/uL (1.4-6.9); BASOPHIL % 0.7 % (0.0-0.4); Basophil (Absolute #) 0.03 x10^3/uL (0-0.4); Eosinophil % 3.1 % (0.00-5.0); Eosinophil (Absolute #) 0.13 x10^3/uL (0-0.5); Hematocrit 43.1 % (35-47); Hemoglobin 14.4 g/dL (12.0-16.0); IMMATURE GRAN # 0.02 x10^3u/L (0.00-0.03); IMMATURE GRAN % 0.5 % (0.00-0.4); Lymphocyte (Absolute #) 1.14 x10^3/uL (1.0-4.6); Lymphocytes % 27.3 % (24.0-44.0); Mean Cell Volume 92.5 fL (78-100); Mean Corpuscular Hemoglobin 30.9 pg (26-32); Mean Corpuscular Hgb Concent. 33.4 g/dL (32-36); Mean Platelet Volume 9.6 fL (7.5-11.0); Monocyte (Absolute #) 0.52 x10^3/uL (0.0-1.3); Monocytes % 12.4 % (0.0-12.0); Platelet Count 239 x10^3/uL (150-450); Red Blood Count 4.66 x10^6/uL (4.1-5.4); Red Cell Distribution Width 13.7 % (11.5-14.0); White Blood Count 4.2 x10^3/uL (4.0-10.5)
[2023-02-02 05:59] LABS: ALBUMIN 4.1 g/dL (3.5-5.0); ALKALINE PHOSPHATASE 101 U/L (38-126); ANION GAP 13.5 MEQ/L (5-15); BLOOD UREA NITROGEN 17 mg/dL (7-17); CHLORIDE 102 mmol/L (98-107); Calcium 9.3 mg/dL (8.4-10.2); Carbon Dioxide 27 mmol/L (22-30); Creatinine 1 0.75 mg/dL (0.52-1.04); EST GLOMERULAR FILTRATION RATE > 60.0 ML/MIN; Glucose 95 mg/dL (74-106); SGOT/AST 23 U/L (14-36); SGPT/ALT 17 U/L (0-35); SODIUM 138 mmol/L (137-145)
[2023-02-02] MEDS ORDERED: NITRO-BID TD PRN (07:01)
[2023-02-02] MEDS ORDERED: MEDICATION INTERVENTION MC SCH (07:15)
[2023-02-02] MEDS: Ranexa 500 MG PO SCH (09:47)
[2023-02-02] MEDS: LYRICA 100MG PO SCH ×2 (09:47→15:16)
[2023-02-02] MEDS: PROTONIX 40 MG IV IV SCH (09:47)
[2023-02-02] MEDS ORDERED: ZOCOR 20MG PO SCH (10:00)
[2023-02-02] MEDS ORDERED: FOLATE 1 MG PO SCH (10:00)
[2023-02-02] MEDS ORDERED: NON-FORMULARY ITEM (Atorvastatin Calcium [Atorvastatin Calcium] 20 MG Tablet) PO SCH (10:00)
--- NOTE | 2023-02-02 15:51 | PCM.SSS ---
History of Present Illness - Chief Complaint Chief Complaint: chest pain r/o Date: 02/02/23 History of Present Illness: is a 62 year old female with h/o HLP, anxiety, who presented with one night of substernal chest pain, similar to episode 2 years ago when had negative cardiac catheterization. - Review of Systems Constitutional: No Fever, No Chills Eyes: No Symptoms Ears, Nose, & Throat: No Symptoms Respiratory: No Cough, No Short Of Breath Cardiac: No Chest Pain, No Edema, No Syncope Abdominal/Gastrointestinal: No Abdominal Pain, No Nausea, No Vomiting, No Diarrhea Genitourinary Symptoms: No Dysuria Musculoskeletal: No Back Pain, No Neck Pain Skin: No Rash Neurological: No Dizziness, No Focal Weakness, No Sensory Changes Psychological: No Symptoms Endocrine: No Symptoms Hematologic/Lymphatic: No Symptoms Immunological/Allergic: No Symptoms Medications & Allergies Home Medications: Home Medication List Duloxetine HCl 30 mg [Cymbalta 30 MG Capsule] 90 mg PO HS 03/09/21 [History Confirmed 02/01/23] Pregabalin [Lyrica 100Mg] 200 mg PO TID 03/09/21 [History Confirmed 02/01/23] ALPRAZolam 1 MG [Xanax 1 mg] 0.5 mg PO TID PRN 10/24/22 [History Confirmed 02/01/23] Atorvastatin Calcium 20 mg PO DAILY 10/24/22 [History Confirmed 02/01/23] Cyanocobalamin 1000 Mcg/ml [Cyanocobalamin B-12 1000 MCG/ML] 1 ml IM UD 10/24/22 [History Confirmed 02/01/23] Nitroglycerin [Nitro-Bid] 1 cap PO DAILY PRN PRN 10/24/22 [History C onfirmed 02/01/23] Ranolazine [Ranolazine ER] 500 mg PO BID 10/24/22 [History Confirmed 02/01/23] Semaglutide [Ozempic] 0.5 mg SQ WEEKLY 10/24/22 [History Confirmed 02/01/23] Folic Acid 1 mg [Folate 1 mg] 1 mg PO DAILY 02/01/23 [History Confirmed 02/01/23] Apixaban [Eliquis 2.5 mg Tablet] 2.5 mg PO BID 02/02/23 [History Confirmed 02/02/23] Allergies/Adverse Reactions: Allergies Allergy/AdvReac Type Severity Reaction Status Date / Time Penicillins Allergy Severe Difficulty Verified 01/02/23 06:26 Breathing shellfish derived Allergy Severe swelling Verified 01/02/23 06:26 and stop breathing. codeine Allergy Mild Hives Verified 01/02/23 06:26 Sulfa (Sulfonamide Allergy Unknown Hives Verified 01/02/23 06:26 Antibiotics) aspirin Allergy Verified 01/02/23 06:26 ibuprofen [From Motrin] Allergy Verified 01/02/23 06:26 cephalexin [From Keflex] AdvReac Verified 01/02/23 06:26 - Past Medical History Past Medical History: Yes Neurological History: Peripheral Neuropathy, Other ENT History: No Pertinent History Cardiac History: Angina, Other Respiratory History: Asthma, Sleep Apnea Endocrine Medical History: Liver Disease, Other Musculoskelatal History: Fractures, Other GI Medical History: Ulcer History: Other Pyscho-Social History: Depression, Other Reproductive Disorders: No Pertinent History Comment: FATTY LIVER DISEASE, PATIENT REPORTS MONITORED FOR KIDNEY FUNCTION YEARLY, "LEAKY" VALVES, HX FX RIGHT WRIST WITH ORIF, ELBOW (HX OF RADIAL HEAD REMOVAL) AND HAND. ANXIETY, DEPRESSION - Female History Are you now?: No - Past Surgical History Past Surgical History: Yes Neuro Surgical History: No Pertinent History Cardiac History: Cardiac Catheterization Respiratory Surgery: No Pertinent History GI Surgical History: Other Genitourinary Surgical Hx: No Pertinent History Musculskeletal Surgical Hx: Orthopedic Surgery Female Surgical History: Section, Tubal Ligation Other Surgical History: RIGHT ARM X2. spinal cord stim placed. liver biopsy. left foot hammer toe correction - Social History Smoking Status: Never smoker Exposure to second hand smoke: No Alcohol: None Drug Use: none Significant Family History: no pertinent family hx - Physical Exam Vital Signs: Vital Signs - 24 hr Temp Pulse Resp BP Pulse Ox 02/02/23 11:59 98.0 F 69 16 117/61 97 02/02/23 07:37 97.6 F 79 16 132/56 94 L 02/02/23 04:00 97.2 F 65 18 127/57 95 02/02/23 00:00 97.6 F 71 18 112/52 96 02/01/23 20:00 97.3 F 79 16 147/68 94 L 02/01/23 16:00 97.9 F 69 18 138/72 95 General Appearance: no apparent distress, alert Neurologic Exam: alert, oriented x 3, cooperative, normal mood/affect, nml cerebellar function, nml station & gait, sensation nml, No motor deficits Respiratory Exam: normal breath sounds, lungs clear, No respiratory distress Cardiovascular Exam: regular rate/rhythm, normal heart sounds, normal peripheral pulses Gastrointestinal/Abdomen Exam: soft, normal bowel sounds, No tenderness Results - Labs Lab/Micro Results: Lab Results-Last 24 Hours 02/01/23 02/02/23 02/02/23 Range/Units 17:33 04:50 04:50 WBC 4.2 (4.0-10.5) x10^3/uL RBC 4.66 (4.1-5.4) x10^6/uL Hgb 14.4 (12.0-16.0) g/dL Hct 43.1 (35-47) % MCV 92.5 (78-100) fL MCH 30.9 (26-32) pg MCHC 33.4 (32-36) g/dL RDW 13.7 (11.5-14.0) % Plt Count 239 (150-450) x10^3/uL MPV 9.6 (7.5-11.0) fL Gran % 56.0 (36.0-66.0) % Immature Gran % (Auto) 0.5 H (0.00-0.4) % Nucleat RBC Rel Count 0.0 (0.00-0.1) % Eos # (Auto) 0.13 (0-0.5) x10^3/uL Immature Gran # (Auto) 0.02 (0.00-0.03) x10^3u/L Absolute Lymphs (auto) 1.14 (1.0-4.6) x10^3/uL Absolute Monos (auto) 0.52 (0.0-1.3) x10^3/uL Absolute Nucleated RBC 0.00 (0.00-0.01) x10^3u/L Lymphocytes % 27.3 (24.0-44.0) % Monocytes % 12.4 H (0.0-12.0) % Eosinophils % 3.1 (0.00-5.0) % Basophils % 0.7 (0.0-0.4) % Absolute Granulocytes 2.34 (1.4-6.9) x10^3/uL Basophils # 0.03 (0-0.4) x10^3/uL Sodium 138 (137-145) mmol/L Potassium 4.0 (3.5-5.1) mmol/L Chloride 102 (98-107) mmol/L Carbon Dioxide 27 (22-30) mmol/L Anion Gap 13.5 (5-15) MEQ/L BUN 17 (7-17) mg/dL Creatinine 0.75 (0.52-1.04) mg/dL Estimated GFR > 60.0 ML/MIN Glucose 95 (74-106) mg/dL Calcium 9.3 (8.4-10.2) mg/dL Total Bilirubin 0.60 (0.2-1.3) mg/dL AST 23 (14-36) U/L ALT 17 (0-35) U/L Alkaline Phosphatase 101 (38-126) U/L Troponin I < 0.012 (0.000-0.034) ng/mL Serum Total Protein 7.0 (6.3-8.2) g/dL Albumin 4.1 (3.5-5.0) g/dL - Radiology Impressions Radiology Exams & Impressions: Radiology Procedures Category Date Time Status CHEST 1 VIEW (PORTABLE) Stat Exams 02/01/23 09:29 Completed Hospital Summary - Hospital Course Hospital Course: She was admitted under observation, with negative troponins x3 and no changes on her EKG. Her chest pain was resolved shortly after arrival. She will discharge home and follow up with her cardiology Dr. Anne. The entirety of this encounter was performed via telemedicine, to which the patient consented. - Vitals & Intake/Output Vital Signs: Vital Signs Temperature 98.0 F 02/02/23 11:59 Pulse Rate 69 02/02/23 11:59 Respiratory Rate 16 02/02/23 11:59 Blood Pressure 117/61 02/02/23 11:59 O2 Sat by Pulse Oximetry 97 02/02/23 11:59 Intake & Output: Intake & Output 01/31/23 02/01/23 02/02/23 02/03/23 11:59 11:59 11:59 11:59 Intake Total 3410 717 Balance 1740 480 Weight 73.8 kg - Lab Result Diagrams: 02/02/23 04:50 02/02/23 04:50 Lab Results-Last 24 Hrs: Lab Results-Last 24 Hours 02/01/23 02/02/23 02/02/23 Range/Units 17:33 04:50 04:50 WBC 4.2 (4.0-10.5) x10^3/uL RBC 4.66 (4.1-5.4) x10^6/uL Hgb 14.4 (12.0-16.0) g/dL Hct 43.1 (35-47) % MCV 92.5 (78-100) fL MCH 30.9 (26-32) pg MCHC 33.4 (32-36) g/dL RDW 13.7 (11.5-14.0) % Plt Count 239 (150-450) x10^3/uL MPV 9.6 (7.5-11.0) fL Gran % 56.0 (36.0-66.0) % Immature Gran % (Auto) 0.5 H (0.00-0.4) % Nucleat RBC Rel Count 0.0 (0.00-0.1) % Eos # (Auto) 0.13 (0-0.5) x10^3/uL Immature Gran # (Auto) 0.02 (0.00-0.03) x10^3u/L Absolute Lymphs (auto) 1.14 (1.0-4.6) x10^3/uL Absolute Monos (auto) 0.52 (0.0-1.3) x10^3/uL Absolute Nucleated RBC 0.00 (0.00-0.01) x10^3u/L Lymphocytes % 27.3 (24.0-44.0) % Monocytes % 12.4 H (0.0-12.0) % Eosinophils % 3.1 (0.00-5.0) % Basophils % 0.7 (0.0-0.4) % Absolute Granulocytes 2.34 (1.4-6.9) x10^3/uL Basophils # 0.03 (0-0.4) x10^3/uL Sodium 138 (137-145) mmol/L Potassium 4.0 (3.5-5.1) mmol/L Chloride 102 (98-107) mmol/L Carbon Dioxide 27 (22-30) mmol/L Anion Gap 13.5 (5-15) MEQ/L BUN 17 (7-17) mg/dL Creatinine 0.75 (0.52-1.04) mg/dL Estimated GFR > 60.0 ML/MIN Glucose 95 (74-106) mg/dL Calcium 9.3 (8.4-10.2) mg/dL Total Bilirubin 0.60 (0.2-1.3) mg/dL AST 23 (14-36) U/L ALT 17 (0-35) U/L Alkaline Phosphatase 101 (38-126) U/L Troponin I < 0.012 (0.000-0.034) ng/mL Serum Total Protein 7.0 (6.3-8.2) g/dL Albumin 4.1 (3.5-5.0) g/dL - Radiology Exams Ordered Rad Exams-Entire Visit: Radiology Procedures Category Date Time Status CHEST 1 VIEW (PORTABLE) Stat Exams 02/01/23 09:29 Completed - Discharge Discharge Date: 02/02/23 Disposition: Home, Self-Care Condition: Stable Prescriptions: No Action Pregabalin [Lyrica 100Mg] 200 mg PO TID Duloxetine HCl 30 mg [Cymbalta 30 MG Capsule] 90 mg PO HS ALPRAZolam 1 MG [Xanax 1 mg] 0.5 mg PO TID PRN Cyanocobalamin 1000 Mcg/ml [Cyanocobalamin B-12 1000 MCG/ML] 1 ml IM UD Semaglutide [Ozempic] 0.5 mg SQ WEEKLY Nitroglycerin [Nitro-Bid] 1 cap PO DAILY PRN PRN PRN Reason: Chest Pain Atorvastatin Calcium 20 mg PO DAILY Ranolazine [Ranolazine ER] 500 mg PO BID Folic Acid 1 mg [Folate 1 mg] 1 mg PO DAILY Apixaban [Eliquis 2.5 mg Tablet] 2.5 mg PO BID Follow up with: KIA ANNE MD [Primary Care Provider] - ARUNA ANNE [CONSULTING PHYSICIAN] -
[2023-02-02 15:59] VITALS: BP 127/69; PULSE 72; O2SAT 95
[2023-02-13] MEDS ORDERED: Cyanocobalamin B-12 1000 MCG/ML IM SCH (10:00)
== END 2023-02-02 16:40 | disposition home or self-care (01) ==
LOC: ED 09:04 → MED SURG 13:53
PROVIDERS: ADMIT Internal Medicine; ATTEND Family Medicine
DX: R07.9 Chest pain, unspecified (principal); E78.5 Hyperlipidemia, unspecified; F41.9 Anxiety disorder, unspecified; Z79.01 Long term (current) use of anticoagulants; Z79.899 Other long term (current) drug therapy; Z20.828 Contact with and (suspected) exposure to other viral communicable diseases
CPT/HCPCS: 36000; 36415; 71045; 80053; 83880; 84484; 85025; 93005; 93041; 93268; 99285; Q3014; A9270-GY; G0378

== ENCOUNTER 2023-07-03 06:26 | Day surgery (SDC) | payer MEDICARE ==
[2023-07-03] MEDS ORDERED: Lactated Ringers 1,000 ML IV SCH (07:00)
[2023-07-03] MEDS ORDERED: CLINDAMYCIN-D5W 900 MG/50 ML*** 900 MG/50 ML BAG IV SCH (07:00)
[2023-07-03 07:02] VITALS: RESP 16
[2023-07-03 07:11] LABS: Absolute Neutrophil Ct (ANC) 1.53 x10^3/uL (1.4-6.9); BASOPHIL % 1.2 % (0.0-0.4); Basophil (Absolute #) 0.04 x10^3/uL (0-0.4); Eosinophil % 4.7 % (0.00-5.0); Eosinophil (Absolute #) 0.16 x10^3/uL (0-0.5); Hematocrit 40.9 % (35-47); Hemoglobin 13.6 g/dL (12.0-16.0); IMMATURE GRAN # 0.01 x10^3u/L (0.00-0.03); IMMATURE GRAN % 0.3 % (0.00-0.4); Lymphocytes % 38.6 % (24.0-44.0); Mean Cell Volume 93.2 fL (78-100); Mean Corpuscular Hgb Concent. 33.3 g/dL (32-36); Mean Platelet Volume 9.9 fL (7.5-11.0); Monocyte (Absolute #) 0.33 x10^3/uL (0.0-1.3); Monocytes % 9.8 % (0.0-12.0); Neutrophil % 45.4 % (36.0-66.0); Platelet Count 209 x10^3/uL (150-450); Red Blood Count 4.39 x10^6/uL (4.1-5.4); Red Cell Distribution Width 13.4 % (11.5-14.0); White Blood Count 3.4 x10^3/uL (4.0-10.5)
[2023-07-03 07:22] LABS: ALBUMIN 4.1 g/dL (3.5-5.0); ANION GAP 14.7 MEQ/L (5-15); BILIRUBIN,TOTAL 0.6 mg/dL (0.2-1.3); Calcium 9.4 mg/dL (8.4-10.2); Creatinine 1 0.73 mg/dL (0.52-1.04); EST GLOMERULAR FILTRATION RATE 91.8 ML/MIN; Potassium 4.1 mmol/L (3.5-5.1); Total Protein 6.7 g/dL (6.3-8.2)
[2023-07-03] MEDS ORDERED: Marcaine Mpf 0.5% Vial 30 Ml ONE (07:50)
[2023-07-03] MEDS ORDERED: Xylocaine 1% Vial 30 ML PF IJ ONE (07:50)
[2023-07-03] MEDS ORDERED: SUBLIMAZE 100 MCG/2 ML ONE (07:59)
[2023-07-03] MEDS ORDERED: DIPRIVAN 200 MG/20 ML IV ONE (07:59)
[2023-07-03] MEDS ORDERED: Xylocaine-Mpf 2% 5 Ml Vial ONE (07:59)
[2023-07-03] MEDS ORDERED: Versed 2 MG/2 ML Injection ONE (07:59)
[2023-07-03 09:20] VITALS: BP 134/69; PULSE 60; TEMP 97.6; O2SAT 97
--- NOTE | 2023-07-03 09:23 | XRAY ---
Indication: Right 2nd toe hardware removal. Intraoperative fluoroscopy provided for 20 seconds. Single digital spot image submitted for interpretation demonstrates 2nd metatarsal head, 3rd toe, and 4th toe screws. Correlate with intraoperative findings/report.
--- NOTE | 2023-07-03 16:35 | XRAY ---
20 seconds of fluoroscopy was used in surgery for a right 2nd toe hardware removal.
--- NOTE | 2023-07-06 12:58 | OP ---
SURGERY DATE/TIME: 07/03/2023 0810 PREOPERATIVE DIAGNOSES: 1) Painful hardware right second toe. 2) Pain orthopedic hardware in situ. 3) Pain right foot. POSTOPERATIVE DIAGNOSES: 1) Painful hardware right second toe. 2) Pain orthopedic hardware in situ. 3) Pain right foot. PROCEDURE: Removal of painful hardware right foot. SURGEON: Chad Mcqueen DPM. LANGUAGE ASSISTANT: None. ANESTHESIA: Monitored anesthesia care with intraoperative local block of the second digit. HEMOSTASIS: Pressure dressing. ESTIMATED BLOOD LOSS: Approximately 1 cc. MATERIALS: None. INJECTABLES: 10 cc of a 1:1 mixture of 1% lidocaine plain and 0.5% bupivacaine plain injected in a digit block-type fashion. INDICATION FOR SURGERY: Gayla is a very pleasant 63-year-old female who is very well known to my service for correction of hammer toes to the bilateral lower extremity. The patient has been thrilled with her result due to the fact that they were causing her a significant amount of pain secondary to the contracture of all digits with the exception of her right hallux. Up until recently the patient was doing well. The patient did stub her second toe significantly to the right side and did not think much of it at that time however continued to have pain until a follow up visit earlier this last week for nail care. She was complaining of pain with compression of the distal tip of the digit on the dorsal aspect of the digit. Fracture was identified on x-ray which demonstrated that the head of the partially threaded screw was broken through the tip of the distal interphalangeal joint. As a result the patient was having a significant amount of pain and wished to be free of the pain so opted to proceed with removal of the displaced hardware. The patient understands all risks, complications and benefits of surgical intervention at this time including but not limited to infection, hematoma, seroma, possibility of recurrence of surgical deformity although this is less likely at this time given how long it has been since the index procedure. There is also the risk of possible failure of addressing the patient's pain, possible permanent pain and swelling associated with the digit. No guarantees were provided as to the outcome. The procedure should take care of majority of the patient's issue. Plenty of time was allowed for the patient to ask questions which were answered to her apparent satisfaction. It is with that we decided to proceed. DESCRIPTION OF PROCEDURE AND FINDINGS: The patient was brought into the OR and placed on the OR table in the supine position. At this time, monitored anesthesia care was administered until the patient was sedated. The right foot was prepped and draped in the typical sterile fashion and lowered onto the surgical field. At this time a 10 cc block consisting of 1:1 mixture of 1% lidocaine plain and 0.5% bupivacaine plain was injected in a digital block to the right second digit. Utilizing a K-wire the screw was identified under fluoroscopic guidance which was significantly closer to the nail for which we did have to dorsiflex the distal interphalangeal joint in order to find the same hole that the screw was introduced initially, this was removed from the site. Fluoroscopic guidance was demonstrating complete removal of the screw. Remnant of the fracture was still identified however largely healed with a slight mallet toe orientation towards the end of the procedure. However the part of the toe still made contact with the ground and revision was not deemed to be necessary. At this time copious amounts of sterile saline were utilized to flush the surgical site. A single stitch was introduced 4-0 Nylon to the tip of the toe in simple interrupted fashion. Following this, a dressing consisting of Iodine, Adaptic, 2x2 and Coban was applied to the patient's second toe. The patient was then reversed from anesthesia and returned to the postoperative anesthesia care unit with vital signs stable and vascular status intact. The patient handled the anesthesia as well as the procedure without significant complication. Postoperative orders as indicated in the patient's discharge chart.
== END 2023-07-03 09:40 | disposition home or self-care (01) ==
LOC: SDC 06:26
PROVIDERS: ATTEND Podiatrist Foot & Ankle Surgery
DX: T84.84XA Pain due to internal orthopedic prosthetic devices, implants and grafts, initial encounter (principal); M79.671 Pain in right foot
CPT/HCPCS: 36415; 73630; 76000; 80053; 85025; J2001; J2250; J2704; J3010

== ENCOUNTER 2023-10-26 12:07 | Emergency (ER) | payer MEDICARE ==
[2023-10-26] MEDS ORDERED: Amidate 20 MG/10 ML IV ONE (12:08)
[2023-10-26] MEDS ORDERED: Zemuron 100 MG/10 ML IV ONE (12:08)
--- NOTE | 2023-10-26 12:14 | ERPHSYRPT ---
- History of Present Illness Time Seen by Provider: 10/26/23 12:10 Source: EMS Exam Limitations: clinical condition, intoxication Physician History: 63yo f presents by EMS for concerns of intentional drug OD. EMS staff states daughter called 911, they presented to house and had to break the door down to attend to pt. Per EMS, there were empty bottles of xanax and tizanidine nearby the patient, unknown how many tablets were ingested. EMS also found bottles of ranolazine, duloxetine, pepcid, loratadine, mutlivitamin, atorvastatin, lyrica that had differing amounts of medication in each. Pt was initially responsive when brought to ED, was AxO x 0, repeatedly asking for her dog, not answering questions appropriately during initial assessment, maintaining airway. Timing/Duration: today Severity of Symptoms-Max: severe Severity of Symptoms-Current: severe Context related to: other (unknown) Suicidal thoughts: attempt, ingestion Previous symptoms: other (no known previous suicide attempts) Allergies/Adverse Reactions: Penicillins Allergy (Severe, Verified 07/03/23 06:45) Difficulty Breathing shellfish derived Allergy (Severe, Verified 07/03/23 06:45) swelling and stop breathing. codeine Allergy (Mild, Verified 07/03/23 06:45) Hives Sulfa (Sulfonamide Antibiotics) Allergy (Unknown, Verified 07/03/23 06:45) Hives aspirin Allergy (Verified 07/03/23 06:45) ibuprofen [From Motrin] Allergy (Verified 07/03/23 06:45) cephalexin [From Keflex] Adverse Reaction (Verified 07/03/23 06:45) Home Medications: Duloxetine HCl 30 mg [Cymbalta 30 MG Capsule] 260 mg PO HS 03/09/21 [History] Pregabalin [Lyrica 100Mg] 200 mg PO TID 03/09/21 [History] ALPRAZolam 1 MG [Xanax 1 mg] 0.5 mg PO TID PRN 10/24/22 [History] Atorvastatin Calcium 20 mg PO DAILY 10/24/22 [History] Cyanocobalamin 1000 Mcg/ml [Cyanocobalamin B-12 1000 MCG/ML] 1 ml IM UD 10/24/22 [History] Ranolazine [Ranolazine ER] 500 mg PO BID 10/24/22 [History] Semaglutide [Ozempic] 0.5 mg SQ WEEKLY 10/24/22 [History] Folic Acid 1 mg [Folate 1 mg] 1 mg PO DAILY 02/01/23 [History] Famotidine 20 mg [Pepcid 20 MG] 20 mg PO BID 07/03/23 [History] Hx Tetanus, Diphtheria Vaccination/Date Given: Yes Hx Influenza Vaccination/Date Given: No Hx Pneumococcal Vaccination/Date Given: No Travel Risk - Vaccine Status Have you recieved a Covid-19 vaccination: Yes 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[employer] - Vaccination Dates Date of 2cond Vaccination (if applicable): 2020 - Past Medical History Pertinent Past Medical History: Yes Neurological History: Peripheral Neuropathy, Other ENT History: No Pertinent History Cardiac History: Angina, Other Respiratory History: Asthma, Sleep Apnea Endocrine Medical History: Liver Disease, Other Musculoskeletal History: Fractures, Other GI Medical History: Ulcer History: Other Psycho-Social History: Depression, Other Female Reproductive Disorders: No Pertinent History Other Medical History: FATTY LIVER DISEASE, PATIENT REPORTS MONITORED FOR KIDNEY FUNCTION YEARLY, "LEAKY" VALVES, HX FX RIGHT WRIST WITH ORIF, ELBOW (HX OF RADIAL HEAD REMOVAL) AND HAND. ANXIETY, DEPRESSION - Past Surgical History Past Surgical History: Yes Neuro Surgical History: No Pertinent History Cardiac: Cardiac Catheterization Respiratory: No Pertinent History Gastrointestinal: Other Genitourinary: No Pertinent History Musculoskeletal: Orthopedic Surgery Female Surgical History: Section, Tubal Ligation Other Surgical History: RIGHT ARM X2. spinal cord stim placed. liver biopsy. left foot hammer toe correction. removal of hardware right foot - Social History Smoking Status: Former smoker Exposure to second hand smoke: No Alcohol Use: None Drug Use: none Patient Lives Alone: Yes Significant Family History: no pertinent family hx - Review of Systems Constitutional: Other (unable to assess 2/2 disoriented status) - Nursing Vital Signs Nursing Vital Signs: Initial Vital Signs Pulse Rate 73 10/26/23 12:09 Respiratory Rate 22 10/26/23 12:09 Blood Pressure 99/76 10/26/23 12:09 O2 Sat by Pulse Oximetry 95 10/26/23 12:09 Pain Scale Pain Intensity 0 - Physical Exam General Appearance: lethargy, other (pt unable to follow commands, not oriented, agitated ) Eyes, Ears, Nose, Throat Exam: moist mucous membranes, other (pinpoint pupils b/l, sluggish reactivity b/l) Respiratory Exam: normal breath sounds, lungs clear, airway intact Cardiovascular Exam: regular rate/rhythm, normal heart sounds Gastrointestinal/Abdominal Exam: soft, normal bowel sounds, No tenderness, No distention Extremities Exam: normal inspection Current Suicidality: other (attempted by ingestion of multiple medications) Neurological Exam: responds to pain, disoriented x 3 Skin Exam: normal color SpO2 Interpretation: normal SpO2: 96 O2 Delivery: Room Air Procedures - Intubation Time of Intubation: 12:31 Intubation Indications: airway protection, respiratory distress Intubation Method: orotracheal Tube Size (cm): 7.0 Medications: Etomidate, Rocuronium C-Spine: maintained Endotracheal Tube Confirmation: bilateral breath sounds, positive end tidal CO2 Intubation Complications: no complications Performed By: ED Physician Post Intubation Xray: Yes Progress/X-ray Impression: 10/26/23 15:57 ET tube positioned 2cm superior to mu - Course EKG Interpreted by Me: RATE (81), Sinus Rhythm, Other (qtcb 448, no ST changes that would suggest ischemia) Ordered Tests: Active Orders 24 hr Category Date Time Status CO2 Monitoring STAT Care 10/26/23 13:12 Active Glue Cook STAT Care 10/26/23 12:12 Active EKG-ER Only STAT Care 10/26/23 12:10 Active IV Insertion STAT Care 10/26/23 12:10 Active POCT Glucose Check ONCE Care 10/26/23 12:10 Active CHEST 1 VIEW (PORTABLE) Stat Exams 10/26/23 12:40 Completed HEAD WITHOUT CONTRAST [CT] Stat Exams 10/26/23 12:11 Completed ABG [ARTERIAL BLOOD GASES] Routine Lab 10/26/23 14:00 Completed ACETAMINOPHEN Stat Lab 10/26/23 12:15 Completed CBC W DIFF Stat Lab 10/26/23 12:15 Completed CMP Stat Lab 10/26/23 12:15 Completed ETHYL ALCOHOL Stat Lab 10/26/23 12:15 Completed SALICYLATE Stat Lab 10/26/23 12:15 Completed TROPONIN Q4H Lab 10/26/23 12:30 Completed TROPONIN Q4H Lab 10/26/23 16:45 Ordered TROPONIN Q4H Lab 10/26/23 20:45 Ordered UA W/RFX UR CULTURE Stat Lab 10/26/23 12:34 Completed Urine Triage Profile Stat Lab 10/26/23 12:34 Completed Intubate Patient STAT RT 10/26/23 13:11 Active Standby STAT RT 10/26/23 13:18 Active Vent Settings [Ventilator Management] STAT RT 10/26/23 13:11 Active Medication Summary Discontinued Medications Generic Name Dose Route Start Last Admin Trade Name Cristina PRN Reason Stop Dose Admin Fentanyl Citrate Confirm 10/26/23 12:33 Fentanyl Citrate 100 Mcg/2 Ml* Vial Administered 10/26/23 12:34 Dose 100 mcg .ROUTE .STK-MED ONE Fentanyl Citrate Confirm 10/26/23 14:29 Fentanyl Citrate 100 Mcg/2 Ml* Vial Administered 10/26/23 14:30 Dose 100 mcg .ROUTE .STK-MED ONE Sodium Chloride Confirm 10/26/23 12:27 Sodium Chloride 0.9% 1000 Ml Administered 10/26/23 12:28 Dose 1,000 mls @ ud .ROUTE .STK-MED ONE Propofol Confirm 10/26/23 12:32 Propofol 1000 Mg/100 Ml Bottle Administered 10/26/23 12:33 Dose 100 mls @ ud IV .STK-MED ONE Norepinephrine/Dextrose Confirm 10/26/23 12:32 Norepinephrine 8 Mg/250 Ml-D5w Administered 10/26/23 12:33 Dose 8 mg in 250 mls @ ud IV .STK-MED ONE Lab/Rad Data: Laboratory Result Diagrams 10/26/23 12:15 10/26/23 12:15 Laboratory Results 10/26/23 10/26/23 10/26/23 Range/Units 14:00 12:34 12:34 WBC (4.0-10.5) x10^3/uL RBC (4.1-5.4) x10^6/uL Hgb (12.0-16.0) g/dL Hct (35-47) % MCV (78-100) fL MCH (26-32) pg MCHC (32-36) g/dL RDW (11.5-14.0) % Plt Count (150-450) x10^3/uL MPV (7.5-11.0) fL Gran % (36.0-66.0) % Immature Gran % (Auto) (0.00-0.4) % Nucleat RBC Rel Count (0.00-0.1) % Eos # (Auto) (0-0.5) x10^3/uL Immature Gran # (Auto) (0.00-0.03) x10^3u/L Absolute Lymphs (auto) (1.0-4.6) x10^3/uL Absolute Monos (auto) (0.0-1.3) x10^3/uL Absolute Nucleated RBC (0.00-0.01) x10^3u/L Lymphocytes % (24.0-44.0) % Monocytes % (0.0-12.0) % Eosinophils % (0.00-5.0) % Basophils % (0.0-0.4) % Absolute Granulocytes (1.4-6.9) x10^3/uL Basophils # (0-0.4) x10^3/uL Puncture Site LRA pCO2 36 (35-45) mmHg pO2 114 H (75-100) mmHg Base Excess 3.4 H (-2.0-2.0) O2 Saturation 97.1 (94-100) g/dF ABG pH 7.48 H (7.35-7.45) ABG HCO3 26.8 (22-28) ABG O2 Sat (Measured) 98.7 (95-100) % Eldon Test YES A-a Gradient 198 a/A Ratio 0.37 Hemoglobin 13.9 Carboxyhemoglobin 0.9 (0.0-6.9) % THgb Methemoglobin 0.8 L (1.4-1.5) % Temperature 37.0 C POC O2 Flow Rate 50 % Vent Mode A/C Tidal Volume 500 cc PEEP 5.0 cmH2O Sodium (135-145) mmol/L Potassium 2.7 L* (3.5-5.1) mmol/L Chloride (98-107) mmol/L Carbon Dioxide (22-30) mmol/L Anion Gap (5-15) MEQ/L BUN (7-17) mg/dL Creatinine (0.52-1.04) mg/dL Estimated GFR ML/MIN Glucose (74-106) mg/dL Calcium (8.4-10.2) mg/dL Total Bilirubin (0.2-1.3) mg/dL AST (14-36) U/L ALT (0-35) U/L Alkaline Phosphatase (38-126) U/L Troponin I (0.000-0.034) ng/mL Serum Total Protein (6.3-8.2) g/dL Albumin (3.5-5.0) g/dL Urine Color Dark Yellow A (Yellow) Urine Appearance Clear (Clear) Urine pH 7.0 (4.6-8.0) Ur Specific [place] 1.015 (1.005-1.030) Urine Protein 30 (Negative) Urine Glucose (UA) Negative (Negative) mg/dL Urine Ketones 15 A (Negative) Urine Blood Negative (Negative) Urine Nitrite Negative (Negative) Urine Bilirubin Negative (Negative) Urine Urobilinogen 1.0 A (0.2) mg/dL Ur Leukocyte Esterase Negative (Negative) U Hyaline Cast (Auto) NONE SEEN (0-2) /LPF Urine Microscopic RBC 0-2 (0-5) /HPF Urine Microscopic WBC 3-5 (0-5) /HPF Ur Epithelial Cells None Seen (None Seen) /HPF Urine Bacteria None Seen (None Seen) /HPF Urine Culture Reflexed NO (NO) Salicylates (2-20) mg/dL Urine Opiates Level NEGATIVE (NEGATIVE) Ur Methadone NEGATIVE (NEGATIVE) Acetaminophen (10-30) ug/ml Urine Barbiturates NEGATIVE (NEGATIVE) Ur Phencyclidine (PCP) NEGATIVE (NEGATIVE) Urine Amphetamine NEGATIVE (NEGATIVE) U Benzodiazepine Level POSITIVE A (NEGATIVE) Urine Cocaine NEGATIVE (NEGATIVE) Urine Marijuana (THC) NEGATIVE (NEGATIVE) Ethyl Alcohol (0-10) mg/dL 10/26/23 10/26/23 10/26/23 Range/Units 12:30 12:15 12:15 WBC 3.8 L (4.0-10.5) x10^3/uL RBC 4.63 (4.1-5.4) x10^6/uL Hgb 14.6 (12.0-16.0) g/dL Hct 43.8 (35-47) % MCV 94.6 (78-100) fL MCH 31.5 (26-32) pg MCHC 33.3 (32-36) g/dL RDW 14.2 H (11.5-14.0) % Plt Count 205 (150-450) x10^3/uL MPV 9.8 (7.5-11.0) fL Gran % 62.5 (36.0-66.0) % Immature Gran % (Auto) 0.3 (0.00-0.4) % Nucleat RBC Rel Count 0.0 (0.00-0.1) % Eos # (Auto) 0.06 (0-0.5) x10^3/uL Immature Gran # (Auto) 0.01 (0.00-0.03) x10^3u/L Absolute Lymphs (auto) 0.93 L (1.0-4.6) x10^3/uL Absolute Monos (auto) 0.39 (0.0-1.3) x10^3/uL Absolute Nucleated RBC 0.00 (0.00-0.01) x10^3u/L Lymphocytes % 24.5 (24.0-44.0) % Monocytes % 10.3 (0.0-12.0) % Eosinophils % 1.6 (0.00-5.0) % Basophils % 0.8 (0.0-0.4) % Absolute Granulocytes 2.38 (1.4-6.9) x10^3/uL Basophils # 0.03 (0-0.4) x10^3/uL Puncture Site pCO2 (35-45) mmHg pO2 (75-100) mmHg Base Excess (-2.0-2.0) O2 Saturation (94-100) g/dF ABG pH (7.35-7.45) ABG HCO3 (22-28) ABG O2 Sat (Measured) (95-100) % [place] Test A-a Gradient a/A Ratio Hemoglobin Carboxyhemoglobin (0.0-6.9) % THgb Methemoglobin (1.4-1.5) % Temperature C POC O2 Flow Rate % Vent Mode Tidal Volume cc PEEP cmH2O Sodium 137 (135-145) mmol/L Potassium 3.3 L (3.5-5.1) mmol/L Chloride 104 (98-107) mmol/L Carbon Dioxide 24 (22-30) mmol/L Anion Gap 12.4 (5-15) MEQ/L BUN 9 (7-17) mg/dL Creatinine 0.55 (0.52-1.04) mg/dL Estimated GFR 102.3 ML/MIN Glucose 129 H (74-106) mg/dL Calcium 8.6 (8.4-10.2) mg/dL Total Bilirubin 0.70 (0.2-1.3) mg/dL AST 25 (14-36) U/L ALT 14 (0-35) U/L Alkaline Phosphatase 62 (38-126) U/L Troponin I < 0.012 (0.000-0.034) ng/mL Serum Total Protein 6.1 L (6.3-8.2) g/dL Albumin 3.9 (3.5-5.0) g/dL Urine Color (Yellow) Urine Appearance (Clear) Urine pH (4.6-8.0) Ur Specific [place] (1.005-1.030) Urine Protein (Negative) Urine Glucose (UA) (Negative) mg/dL Urine Ketones (Negative) Urine Blood (Negative) Urine Nitrite (Negative) Urine Bilirubin (Negative) Urine Urobilinogen (0.2) mg/dL Ur Leukocyte Esterase (Negative) U Hyaline Cast (Auto) (0-2) /LPF Urine Microscopic RBC (0-5) /HPF Urine Microscopic WBC (0-5) /HPF Ur Epithelial Cells (None Seen) /HPF Urine Bacteria (None Seen) /HPF Urine Culture Reflexed (NO) Salicylates < 1.0 L (2-20) mg/dL Urine Opiates Level (NEGATIVE) Ur Methadone (NEGATIVE) Acetaminophen < 10 L (10-30) ug/ml Urine Barbiturates (NEGATIVE) Ur Phencyclidine (PCP) (NEGATIVE) Urine Amphetamine (NEGATIVE) U Benzodiazepine Level (NEGATIVE) Urine Cocaine (NEGATIVE) Urine Marijuana (THC) (NEGATIVE) Ethyl Alcohol < 10 (0-10) mg/dL - Progress Progress: re-examined Progress Note: 10/26/23 12:57 while preparing to move to [place], pt became unresponsive, developed snoring respirations, O2 saturation dropped to 75% pt was intubated at that time using RSI protocol - glidescope, 7.0 ET tube confirmed by end tidal CO2 device, confirmed ET tube place w/ xray, etomidate 20mg, rocuronium 50mg given for RSI; propofol drip, fentanyl 50mcg given post intubation; levophed started for hypotension MAP 58 CT head pending labs pending pupils pinpoint, non-reactive repeat EKG showed HR 58, qtcb 457, nonspecific ST changes not suggestive of acute ischemia 10/26/23 13:06 See nursing note for complete details of acute management 10/26/23 14:18 Pt vitally stable, intubated/sedated on ventilator, propofol Discussed pt presentation and current state w/ family at bedside, daughter is LANEY, answered all questions discussed possibility of admission to [facility] w/ Dr Olvera who did not believe pt was appropriate for admission here, recommends higher level of care I agree, will plan to transfer to [facility] for ICU care Labs - + for benzodiazepines, otherwise largely unremarkable discussed possibility of using flumazenil for benzodiazepine effect reversal w/ pharmacy, in setting of polypharmacy OD (most significantly tizanidine), decision was made to hold flumazenil 10/26/23 14:32 propofol dose increase to 10 10/26/23 14:40 I spoke w/ Dr Antonio - ER physician [facility] - who accepts for ED to ED transfer 10/26/23 15:44 EMS arrived for transport, pt taken from our ED at 15:40 by ALS crew, ground transport to [facility] Will see patient in: other (transfer ED to ED to [facility]) Counseled pt/family regarding: drug and/or alcohol abuse, lab results, diagnosis, need for follow-up, rad results Medical Desision Making - Discussion of managment Care discussed with:: specialist (ED physician [facility] Dr Antonio) Reviewed:: Test results, Need for additional workup Agreed on:: Treatment plan, decision to admit (decision to transfer) Will see patient: in ED - Diagnostic Testing Diagnostic test were ordered, analyzed, and reviewed by me: Yes Radiological Interpretation: Reviewed by me, Teleradiologist Report - Risk of complications The pt has a high risk of morbidity or mortality based on: Drug therapy requiring intensive monitoring for toxicity, Decision regarding hospitilization or escalation of hosp level of care - Departure Departure Disposition: Transfer (ED to ED [facility]) Clinical Impression: Endotracheally intubated, Respiratory distress, Hypotension due to medication Benzodiazepine (tranquilizer) overdose Qualifiers: Encounter type: initial encounter Injury intent: intentional self-harm Qualified Code(s): T42.4X2A - Poisoning by benzodiazepines, intentional self- harm, initial encounter Condition: Critical Critical Care Time: Yes Critical Care Time(excluding separately billable procedures): Critical 105-134 mins Referrals: KIA ANNE MD [Primary Care Provider] - Follow up/PCP as directed
[2023-10-26 12:22] LABS: Absolute Neutrophil Ct (ANC) 2.38 x10^3/uL (1.4-6.9); BASOPHIL % 0.8 % (0.0-0.4); Basophil (Absolute #) 0.03 x10^3/uL (0-0.4); Eosinophil % 1.6 % (0.00-5.0); Eosinophil (Absolute #) 0.06 x10^3/uL (0-0.5); Hematocrit 43.8 % (35-47); Hemoglobin 14.6 g/dL (12.0-16.0); IMMATURE GRAN # 0.01 x10^3u/L (0.00-0.03); IMMATURE GRAN % 0.3 % (0.00-0.4); Lymphocyte (Absolute #) 0.93 x10^3/uL (1.0-4.6); Lymphocytes % 24.5 % (24.0-44.0); Mean Cell Volume 94.6 fL (78-100); Mean Corpuscular Hemoglobin 31.5 pg (26-32); Mean Corpuscular Hgb Concent. 33.3 g/dL (32-36); Mean Platelet Volume 9.8 fL (7.5-11.0); Monocyte (Absolute #) 0.39 x10^3/uL (0.0-1.3); Monocytes % 10.3 % (0.0-12.0); Neutrophil % 62.5 % (36.0-66.0); Platelet Count 205 x10^3/uL (150-450); Red Blood Count 4.63 x10^6/uL (4.1-5.4); Red Cell Distribution Width 14.2 % (11.5-14.0); White Blood Count 3.8 x10^3/uL (4.0-10.5)
[2023-10-26] MEDS ORDERED: Sodium Chloride 0.9% 1000 ML 1,000 ML ONE (12:27)
[2023-10-26] MEDS ORDERED: NOREPINEPHRINE 8 MG/250 ML-D5W 8 MG/250 ML PLAST..BAG IV ONE (12:32)
[2023-10-26] MEDS ORDERED: Propofol 1000 mg/100 ml Bottle 100 ML IV ONE (12:32)
[2023-10-26] MEDS ORDERED: SUBLIMAZE 100 MCG/2 ML ONE ×2 (12:33→14:29)
[2023-10-26 12:34] VITALS: TEMP 97.4
[2023-10-26 12:51] LABS: ACETAMINOPHEN < 10 ug/ml (10-30); ALBUMIN 3.9 g/dL (3.5-5.0); ALKALINE PHOSPHATASE 62 U/L (38-126); ANION GAP 12.4 MEQ/L (5-15); BLOOD UREA NITROGEN 9 mg/dL (7-17); CHLORIDE 104 mmol/L (98-107); Calcium 8.6 mg/dL (8.4-10.2); Carbon Dioxide 24 mmol/L (22-30); Creatinine 1 0.55 mg/dL (0.52-1.04); EST GLOMERULAR FILTRATION RATE 102.3 ML/MIN; ETHYL ALCOHOL < 10 mg/dL (0-10); Glucose 129 mg/dL (74-106); Potassium 3.3 mmol/L (3.5-5.1); SALICYLATE < 1.0 mg/dL (2-20); SGOT/AST 25 U/L (14-36); SGPT/ALT 14 U/L (0-35); SODIUM 137 mmol/L (135-145); Total Protein 6.1 g/dL (6.3-8.2)
--- NOTE | 2023-10-26 12:51 | XRAY ---
Indication: Endotracheal tube and orogastric tube placement. Comparison: September 01, 2023 Portable chest demonstrates new endotracheal tube tip approximately 3 cm above mu and new NG tube tip traversing chest with tip in stomach. Lungs less inflated with new left base infiltrate/atelectasis. Remaining heart and right lung are unremarkable again with incidental chunky mediastinal calcified node.
--- NOTE | 2023-10-26 13:01 | XRAY ---
Indication: Altered mental status. Unresponsive. Stroke. Multiple contiguous axial images obtained through the head without contrast. Comparison: July 26, 2022 Normal appearing brain parenchyma, ventricles, and bony calvarium for patient's age. Visualized paranasal sinuses and mastoid air cells are clear. Impression: Continued normal CT head without contrast exam.
[2023-10-26 13:10] LABS: Appearance Clear (Clear); Bacteria None Seen /HPF (None Seen); Bilirubin Negative (Negative); Blood Negative (Negative); Epithelial Cells None Seen /HPF (None Seen); Glucose, Urine Negative (Negative); Hyaline Casts NONE SEEN /LPF (0-2); Ketones 15 (Negative); Leukocyte Esterase Negative (Negative); Nitrite Negative (Negative); Protein,Urine Dip 30 (Negative); RBC 0-2 /HPF (0-5); Specific Gravity 1.015 (1.005-1.030)
[2023-10-26 13:18] LABS: ADD URINE CULTURE? NO (NO)
[2023-10-26 13:27] LABS: Amphetamine,Urine NEGATIVE (NEGATIVE); Barbiturate,Urine NEGATIVE (NEGATIVE); Benzodiazepine,Urine POSITIVE (NEGATIVE); Cocaine,Urine NEGATIVE (NEGATIVE); Methadone,Urine NEGATIVE (NEGATIVE); Opiate,Urine NEGATIVE (NEGATIVE); PCP,Urine NEGATIVE (NEGATIVE); THC,Urine NEGATIVE (NEGATIVE)
[2023-10-26 14:14] LABS: A-aADO2 198; ABG HEMOGLOBIN 13.9; ARTERIAL BLD GAS O2 SATURATION 98.7 % (95-100); ARTERIAL BLD GAS TIDAL VOLUME 500 cc; ARTERIAL BLOOD GAS BASE EXCESS 3.4 (-2.0-2.0); ARTERIAL BLOOD GAS FIO2 50 %; ARTERIAL BLOOD GAS PCO2 36 mmHg (35-45); ARTERIAL BLOOD GAS PO2 114 mmHg (75-100); ARTERIAL BLOOD GAS VENT MODE A/C; ARTERIAL BLOOD GAS pH 7.48 (7.35-7.45); CARBOXYHEMOGLOBIN 0.9 % THgb (0.0-6.9); HCO3- 26.8 (22-28); HGB O2 SAT 97.1 g/dF (94-100); Methhemoglobin 0.8 % (1.4-1.5); paO2 pAO1 0.37
[2023-10-26 14:15] LABS: ABG POTASSIUM 2.7 (3.5-5.1)
[2023-10-26 14:16] LABS: ABG SITE LRA; ALLEN TEST OK? YES
[2023-10-26 14:25] VITALS: O2SAT 96
[2023-10-26 15:17] VITALS: RESP 16
[2023-10-26 20:28] VITALS: BP 154/88; PULSE 72
== END 2023-10-26 15:40 | disposition short-term general hospital (02) ==
LOC: ED 12:07
DX: T42.4X2A Poisoning by benzodiazepines, intentional self-harm, initial encounter (principal); I95.9 Hypotension, unspecified; R06.03 Acute respiratory distress; Z79.899 Other long term (current) drug therapy; Z20.828 Contact with and (suspected) exposure to other viral communicable diseases
CPT/HCPCS: 31500; 36000; 36415; 36600; 70450; 71045; 80053; 80143; 80179; 80307; 81001; 82077; 82375; 82803; 84484; 85025; 93005; 93041; 94002; 94799; 99285; 99291; 99292; J2704; J3010

== ENCOUNTER 2024-03-16 10:58 | Emergency (ER) | payer MEDICARE ==
[2024-03-16 11:12] VITALS: TEMP 98.2
--- NOTE | 2024-03-16 11:31 | ERPHSYRPT ---
- History of Present Illness Time Seen by Provider: 03/16/24 11:17 Source: patient Exam Limitations: no limitations Patient Subjective Stated Complaint: Pt states "I was at water aerobics and I was doing opposite what everyone else was. They would say walk forward and I w ould walk backwards. I got a headache and a little short of breath. I am also very shaky and that is not normal." Triage Nursing Assessment: PT presented alert and oriented X 3, skin pwd. Pt ambulates with a shaking gait. 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 PT is shaking when she holds her arms up. 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 Pt states she has had tingling in her extremities for years(Neuropathy). Pt states she is on home oxygen 2L/min. Allergies/Adverse Reactions: Penicillins Allergy (Severe, Verified 07/03/23 06:45) Difficulty Breathing shellfish derived Allergy (Severe, Verified 07/03/23 06:45) swelling and stop breathing. codeine Allergy (Mild, Verified 07/03/23 06:45) Hives Sulfa (Sulfonamide Antibiotics) Allergy (Unknown, Verified 07/03/23 06:45) Hives aspirin Allergy (Verified 07/03/23 06:45) ibuprofen [From Motrin] Allergy (Verified 07/03/23 06:45) cephalexin [From Keflex] Adverse Reaction (Verified 07/03/23 06:45) Home Medications: Duloxetine HCl 30 mg [Cymbalta 30 MG Capsule] 260 mg PO HS 03/09/21 [History] Pregabalin [Lyrica 100Mg] 200 mg PO TID 03/09/21 [History] ALPRAZolam 1 MG [Xanax 1 mg] 0.5 mg PO TID PRN 10/24/22 [History] Atorvastatin Calcium 20 mg PO DAILY 10/24/22 [History] Cyanocobalamin 1000 Mcg/ml [Cyanocobalamin B-12 1000 MCG/ML] 1 ml IM UD 10/24/22 [History] Ranolazine [Ranolazine ER] 500 mg PO BID 10/24/22 [History] Semaglutide [Ozempic] 0.5 mg SQ WEEKLY 10/24/22 [History] Folic Acid 1 mg [Folate 1 mg] 1 mg PO DAILY 02/01/23 [History] Famotidine 20 mg [Pepcid 20 MG] 20 mg PO BID 07/03/23 [History] Hx Tetanus, Diphtheria Vaccination/Date Given: No Hx Influenza Vaccination/Date Given: Yes Hx Pneumococcal Vaccination/Date Given: No Immunizations Up to Date: No Travel Risk - International Travel Have you traveled outside of the country in past 3 weeks: No - Emerging Infectious Disease Are you exhibiting symptoms associated with any current EIDs: No - Review of Systems Constitutional: No Fever, No Chills Ears, Nose, & Throat: No Ear Pain, No Throat Pain Respiratory: Dyspnea, No Cough Cardiac: Chest Pain Abdominal/Gastrointestinal: Nausea, No Abdominal Pain, No Vomiting, No Diarrhea Genitourinary Symptoms: No Dysuria Neurological: Dizziness, Headache, Other (shaky) - Past Medical History Pertinent Past Medical History: Yes Neurological History: Peripheral Neuropathy, Other ENT History: No Pertinent History Cardiac History: Angina, Other Respiratory History: Asthma, Sleep Apnea Endocrine Medical History: Liver Disease, Other Musculoskeletal History: Fractures, Other GI Medical History: Ulcer History: Other Psycho-Social History: Depression, Other Female Reproductive Disorders: No Pertinent History Other Medical History: FATTY LIVER DISEASE, PATIENT REPORTS MONITORED FOR KIDNEY FUNCTION YEARLY, "LEAKY" VALVES, HX FX RIGHT WRIST WITH ORIF, ELBOW (HX OF RADIAL HEAD REMOVAL) AND HAND. ANXIETY, DEPRESSION - Past Surgical History Past Surgical History: Yes Neuro Surgical History: No Pertinent History Cardiac: Cardiac Catheterization Respiratory: No Pertinent History Gastrointestinal: Other Genitourinary: No Pertinent History Musculoskeletal: Orthopedic Surgery Female Surgical History: Section, Tubal Ligation Other Surgical History: RIGHT ARM X2. spinal cord stim placed. liver biopsy. left foot hammer toe correction. removal of hardware right foot Significant Family History: no pertinent family hx - Social History Smoking Status: Former smoker Exposure to second hand smoke: No Alcohol Use: None Drug Use: none Patient Lives Alone: Yes - Social Determinants of Health Will the patient participate in the screening: Yes Do you worry about a steady place to live?: Yes Do you have any problems with any of the following?: No known problems In the past 12 months,have you had to go without utilities?: Yes Transportation Issues: No Has anyone in your support network made you feel unsafe?: No Have you or anyone in your house had to go without enough: No - Nursing Vital Signs Nursing Vital Signs: Initial Vital Signs Temperature 98.2 F 03/16/24 11:01 Pulse Rate 93 H 03/16/24 11:01 Respiratory Rate 24 03/16/24 11:01 Blood Pressure 167/88 03/16/24 11:01 O2 Sat by Pulse Oximetry 92 L 03/16/24 11:01 Pain Scale Pain Intensity 0 - Physical Exam General Appearance: alert Eye Exam: PERRL/EOMI Ears, Nose, Throat Exam: hearing grossly normal, normal ENT inspection, normal pharynx Neck Exam: normal inspection Respiratory Exam: lungs clear Cardiovascular/Chest Exam: normal heart sounds Abdominal/Gastrointestinal Exam: normal bowel sounds Extremity Exam: no pedal edema Neurologic Exam: alert, oriented x 3, cooperative, other (shaky with movement of extremities) Skin Exam: warm, dry SpO2 Interpretation: hypoxic SpO2: 92 O2 Delivery: Room Air - Course Nursing assessment & vital signs reviewed: Yes EKG Interpreted by Me: RATE (87), Sinus Rhythm, NORMAL AXIS, Other (QTc = 468) - Radiology Exams Chest X-ray Interpretation: Discussed w/ radiologist (See report.) - CT Exams Head CT Interpretation: Discussed w/radiologist (Continued normal CT head without contrast exam.) Chest CT Interpretation: Discussed w/radiologist (Negative pulmonary embolus. No acute cardiopulmonary abnormalities. See rest of report.) Ordered Tests: Active Orders 24 hr Category Date Time Status Animal Geneticist STAT Care 03/16/24 11:27 Active EKG-ER Only STAT Care 03/16/24 11:26 Active IV Insertion STAT Care 03/16/24 11:26 Active NPO (ED) STAT Care 03/16/24 11:26 Active Oxygen-ED Only Nasal Cannula 2 lpm Care 03/16/24 11:26 Active POCT Glucose Check STAT Care 03/16/24 11:26 Active Pulse Oximetry (ED) STAT Care 03/16/24 11:26 Active CHEST 2 VIEWS (PA AND LAT) Stat Exams 03/16/24 11:29 Completed CHEST WITH CONTRAST [CT] Stat Exams 03/16/24 12:21 Completed HEAD WITHOUT CONTRAST [CT] Stat Exams 03/16/24 11:27 Completed AMYLASE Stat Lab 03/16/24 11:50 Completed CBC W DIFF Stat Lab 03/16/24 11:50 Completed CMP Stat Lab 03/16/24 11:50 Completed D-DIMER QUANTITATIVE Stat Lab 03/16/24 11:50 Completed LIPASE Stat Lab 03/16/24 11:50 Completed Lactic Acid Stat Lab 03/16/24 11:26 Completed MAGNESIUM Stat Lab 03/16/24 11:50 Completed NT PRO BNPII Stat Lab 03/16/24 11:50 Completed POCT GLUCOSE Stat Lab 03/16/24 11:37 Completed PROTIME WITH INR Stat Lab 03/16/24 11:50 Completed PTT Stat Lab 03/16/24 11:50 Completed TROPONIN Q4H Lab 03/16/24 11:50 Completed TROPONIN Q4H Lab 03/16/24 15:25 Completed TROPONIN Q4H Lab 03/16/24 19:30 Ordered UA W/RFX UR CULTURE Stat Lab 03/16/24 13:38 Completed Urine Triage Profile Stat Lab 03/16/24 13:38 Completed VENOUS BLOOD GAS Urgent Lab 03/16/24 11:26 Completed Medication Summary Discontinued Medications Generic Name Dose Route Start Last Admin Trade Name Sdq PRN Reason Stop Dose Admin Sodium Chloride 1,000 mls @ 999 mls/hr 03/16/24 11:26 03/16/24 13:07 Sodium Chloride 0.9% 1000 Ml IV 03/16/24 12:26 Infused .Q1H1M STA Infusion Sodium Chloride Confirm 03/16/24 11:40 Sodium Chloride 0.9% 1000 Ml Administered 03/16/24 11:41 Dose 1,000 mls @ ud .ROUTE .STK-MED ONE Lidocaine HCl Confirm 03/16/24 14:13 Lidocaine - Mpf 2% 5 Ml Vial Administered 03/16/24 14:14 Dose 5 ml .ROUTE .STK-MED ONE Lab/Rad Data: Laboratory Result Diagrams 03/16/24 11:50 03/16/24 11:50 Laboratory Results 03/16/24 03/16/24 03/16/24 Range/Units 15:25 13:38 13:38 WBC (3.98-10.04) x10^3/uL RBC (3.93-5.22) x10^6/uL Hgb (11.2-15.7) g/dL Hct (34.1-44.9) % MCV (79.4-94.8) fL MCH (25.6-32.2) pg MCHC (32.2-35.5) g/dL RDW (11.7-14.4) % Plt Count (182-369) x10^3/uL MPV (9.4-12.3) fL Gran % (34.0-71.1) % Immature Gran % (Auto) (0.001-0.429) % Nucleat RBC Rel Count (0.00-0.2) % Eos # (Auto) (0.04-0.36) x10^3/uL Immature Gran # (Auto) (0.001-0.031) x10^3u/L Absolute Lymphs (auto) (1.18-3.74) x10^3/uL Absolute Monos (auto) (0.24-0.86) x10^3/uL Absolute Nucleated RBC (0.00-0.012) x10^3u/L Lymphocytes % (19.3-51.7) % Monocytes % (4.7-12.5) % Eosinophils % (0.7-5.8) % Basophils % (0.1-1.2) % Absolute Granulocytes (1.56-6.13) x10^3/uL Basophils # (0.01-0.08) x10^3/uL PT (9.4-12.5) SECONDS INR (0.8-3.0) APTT (25.1-36.5) SECONDS D-Dimer (0.0-0.50) mg/L pO2/FiO2 Ratio % VBG pH (7.32-7.42) VBG pCO2 at Pat Temp (42-55) mm/Hg VBG pO2 at Pat Temp (25-40) mm/Hg VBG HCO3 (22-28) meq/L VBG O2 Sat (Jaden) (95-100) VBG Base Excess (-2.0-2.0) VBG Hemoglobin VBG Carboxyhemoglobin (0.0-6.9) % T HGB POC Potassium (3.5-5.1) Sodium (135-145) mmol/L Potassium (3.5-5.1) mmol/L Chloride (98-107) mmol/L Carbon Dioxide (22-30) mmol/L Anion Gap (5-15) MEQ/L BUN (7-17) mg/dL Creatinine (0.52-1.04) mg/dL Estimated GFR ML/MIN Glucose (74-106) mg/dL POC Glucometer (74 to 106) mg/dL Lactic Acid (0.4-2.0) Calcium (8.4-10.2) mg/dL Magnesium (1.6-2.3) mg/dL Total Bilirubin (0.2-1.3) mg/dL AST (14-36) U/L ALT (0-35) U/L Alkaline Phosphatase (38-126) U/L Troponin I < 0.012 (0.000-0.033) ng/mL NT-Pro-B Natriuret Pep (<300) pg/mL Serum Total Protein (6.3-8.2) g/dL Albumin (3.5-5.0) g/dL Amylase (30-110) U/L Lipase (23-300) U/L Urine Color Yellow (Yellow) Urine Appearance Clear (Clear) Urine pH 7.0 (4.6-8.0) Ur Specific [place] 1.010 (1.005-1.030) Urine Protein Negative (Negative) Urine Glucose (UA) Negative (Negative) mg/dL Urine Ketones Negative (Negative) Urine Blood Negative (Negative) Urine Nitrite Negative (Negative) Urine Bilirubin Negative (Negative) Urine Urobilinogen 0.2 (0.2) mg/dL Ur Leukocyte Esterase Negative (Negative) U Hyaline Cast (Auto) NONE SEEN (0-2) /LPF Urine Microscopic RBC 0-2 (0-5) /HPF Urine Microscopic WBC 0-2 (0-5) /HPF Ur Epithelial Cells None Seen (None Seen) /HPF Urine Bacteria None Seen (None Seen) /HPF Urine Culture Reflexed NO (NO) Urine Opiates Level NEGATIVE (NEGATIVE) Ur Methadone NEGATIVE (NEGATIVE) Urine Barbiturates NEGATIVE (NEGATIVE) Ur Phencyclidine (PCP) NEGATIVE (NEGATIVE) Urine Amphetamine NEGATIVE (NEGATIVE) U Benzodiazepine Level POSITIVE A (NEGATIVE) Urine Cocaine NEGATIVE (NEGATIVE) Urine Marijuana (THC) NEGATIVE (NEGATIVE) 03/16/24 03/16/24 03/16/24 Range/Units 11:50 11:50 11:50 WBC (3.98-10.04) x10^3/uL RBC (3.93-5.22) x10^6/uL Hgb (11.2-15.7) g/dL Hct (34.1-44.9) % MCV (79.4-94.8) fL MCH (25.6-32.2) pg MCHC (32.2-35.5) g/dL RDW (11.7-14.4) % Plt Count (182-369) x10^3/uL MPV (9.4-12.3) fL Gran % (34.0-71.1) % Immature Gran % (Auto) (0.001-0.429) % Nucleat RBC Rel Count (0.00-0.2) % Eos # (Auto) (0.04-0.36) x10^3/uL Immature Gran # (Auto) (0.001-0.031) x10^3u/L Absolute Lymphs (auto) (1.18-3.74) x10^3/uL Absolute Monos (auto) (0.24-0.86) x10^3/uL Absolute Nucleated RBC (0.00-0.012) x10^3u/L Lymphocytes % (19.3-51.7) % Monocytes % (4.7-12.5) % Eosinophils % (0.7-5.8) % Basophils % (0.1-1.2) % Absolute Granulocytes (1.56-6.13) x10^3/uL Basophils # (0.01-0.08) x10^3/uL PT 10.3 (9.4-12.5) SECONDS INR 0.94 (0.8-3.0) APTT 23.1 L (25.1-36.5) SECONDS D-Dimer 1.00 H* (0.0-0.50) mg/L pO2/FiO2 Ratio % VBG pH (7.32-7.42) VBG pCO2 at Pat Temp (42-55) mm/Hg VBG pO2 at Pat Temp (25-40) mm/Hg VBG HCO3 (22-28) meq/L VBG O2 Sat (Jaden) (95-100) VBG Base Excess (-2.0-2.0) VBG Hemoglobin VBG Carboxyhemoglobin (0.0-6.9) % T HGB POC Potassium (3.5-5.1) Sodium 136 (135-145) mmol/L Potassium 4.3 (3.5-5.1) mmol/L Chloride 102 (98-107) mmol/L Carbon Dioxide 28 (22-30) mmol/L Anion Gap 10.6 (5-15) MEQ/L BUN 18 H (7-17) mg/dL Creatinine 0.87 (0.52-1.04) mg/dL Estimated GFR 74.4 ML/MIN Glucose 95 (74-106) mg/dL POC Glucometer (74 to 106) mg/dL Lactic Acid (0.4-2.0) Calcium 9.1 (8.4-10.2) mg/dL Magnesium 2.1 (1.6-2.3) mg/dL Total Bilirubin 0.70 (0.2-1.3) mg/dL AST 26 (14-36) U/L ALT 15 (0-35) U/L Alkaline Phosphatase 70 (38-126) U/L Troponin I < 0.012 (0.000-0.033) ng/mL NT-Pro-B Natriuret Pep 131 (<300) pg/mL Serum Total Protein 6.7 (6.3-8.2) g/dL Albumin 4.1 (3.5-5.0) g/dL Amylase 88 (30-110) U/L Lipase 122 (23-300) U/L Urine Color (Yellow) Urine Appearance (Clear) Urine pH (4.6-8.0) Ur Specific [place] (1.005-1.030) Urine Protein (Negative) Urine Glucose (UA) (Negative) mg/dL Urine Ketones (Negative) Urine Blood (Negative) Urine Nitrite (Negative) Urine Bilirubin (Negative) Urine Urobilinogen (0.2) mg/dL Ur Leukocyte Esterase (Negative) U Hyaline Cast (Auto) (0-2) /LPF Urine Microscopic RBC (0-5) /HPF Urine Microscopic WBC (0-5) /HPF Ur Epithelial Cells (None Seen) /HPF Urine Bacteria (None Seen) /HPF Urine Culture Reflexed (NO) Urine Opiates Level (NEGATIVE) Ur Methadone (NEGATIVE) Urine Barbiturates (NEGATIVE) Ur Phencyclidine (PCP) (NEGATIVE) Urine Amphetamine (NEGATIVE) U Benzodiazepine Level (NEGATIVE) Urine Cocaine (NEGATIVE) Urine Marijuana (THC) (NEGATIVE) 03/16/24 03/16/24 03/16/24 Range/Units 11:50 11:37 11:26 WBC 4.5 (3.98-10.04) x10^3/uL RBC 4.34 (3.93-5.22) x10^6/uL Hgb 13.0 (11.2-15.7) g/dL Hct 39.3 (34.1-44.9) % MCV 90.6 (79.4-94.8) fL MCH 30.0 (25.6-32.2) pg MCHC 33.1 (32.2-35.5) g/dL RDW 14.7 H (11.7-14.4) % Plt Count 220 (182-369) x10^3/uL MPV 9.5 (9.4-12.3) fL Gran % 57.3 (34.0-71.1) % Immature Gran % (Auto) 0.7 H (0.001-0.429) % Nucleat RBC Rel Count 0.0 (0.00-0.2) % Eos # (Auto) 0.07 (0.04-0.36) x10^3/uL Immature Gran # (Auto) 0.03 (0.001-0.031) x10^3u/L Absolute Lymphs (auto) 1.39 (1.18-3.74) x10^3/uL Absolute Monos (auto) 0.37 (0.24-0.86) x10^3/uL Absolute Nucleated RBC 0.00 (0.00-0.012) x10^3u/L Lymphocytes % 31.2 (19.3-51.7) % Monocytes % 8.3 (4.7-12.5) % Eosinophils % 1.6 (0.7-5.8) % Basophils % 0.9 (0.1-1.2) % Absolute Granulocytes 2.55 (1.56-6.13) x10^3/uL Basophils # 0.04 (0.01-0.08) x10^3/uL PT (9.4-12.5) SECONDS INR (0.8-3.0) APTT (25.1-36.5) SECONDS D-Dimer (0.0-0.50) mg/L pO2/FiO2 Ratio 21.0 % VBG pH 7.42 (7.32-7.42) VBG pCO2 at Pat Temp 49 (42-55) mm/Hg VBG pO2 at Pat Temp 42 H (25-40) mm/Hg VBG HCO3 31.8 H* (22-28) meq/L VBG O2 Sat (Jaden) 71.9 L (95-100) VBG Base Excess 6.1 H (-2.0-2.0) VBG Hemoglobin 13.5 VBG Carboxyhemoglobin 2.4 (0.0-6.9) % T HGB POC Potassium 4.3 (3.5-5.1) Sodium (135-145) mmol/L Potassium (3.5-5.1) mmol/L Chloride (98-107) mmol/L Carbon Dioxide (22-30) mmol/L Anion Gap (5-15) MEQ/L BUN (7-17) mg/dL Creatinine (0.52-1.04) mg/dL Estimated GFR ML/MIN Glucose (74-106) mg/dL POC Glucometer 88 (74 to 106) mg/dL Lactic Acid (0.4-2.0) Calcium (8.4-10.2) mg/dL Magnesium (1.6-2.3) mg/dL Total Bilirubin (0.2-1.3) mg/dL AST (14-36) U/L ALT (0-35) U/L Alkaline Phosphatase (38-126) U/L Troponin I (0.000-0.033) ng/mL NT-Pro-B Natriuret Pep (<300) pg/mL Serum Total Protein (6.3-8.2) g/dL Albumin (3.5-5.0) g/dL Amylase (30-110) U/L Lipase (23-300) U/L Urine Color (Yellow) Urine Appearance (Clear) Urine pH (4.6-8.0) Ur Specific [place] (1.005-1.030) Urine Protein (Negative) Urine Glucose (UA) (Negative) mg/dL Urine Ketones (Negative) Urine Blood (Negative) Urine Nitrite (Negative) Urine Bilirubin (Negative) Urine Urobilinogen (0.2) mg/dL Ur Leukocyte Esterase (Negative) U Hyaline Cast (Auto) (0-2) /LPF Urine Microscopic RBC (0-5) /HPF Urine Microscopic WBC (0-5) /HPF Ur Epithelial Cells (None Seen) /HPF Urine Bacteria (None Seen) /HPF Urine Culture Reflexed (NO) Urine Opiates Level (NEGATIVE) Ur Methadone (NEGATIVE) Urine Barbiturates (NEGATIVE) Ur Phencyclidine (PCP) (NEGATIVE) Urine Amphetamine (NEGATIVE) U Benzodiazepine Level (NEGATIVE) Urine Cocaine (NEGATIVE) Urine Marijuana (THC) (NEGATIVE) 03/16/24 Range/Units 11:26 WBC (3.98-10.04) x10^3/uL RBC (3.93-5.22) x10^6/uL Hgb (11.2-15.7) g/dL Hct (34.1-44.9) % MCV (79.4-94.8) fL MCH (25.6-32.2) pg MCHC (32.2-35.5) g/dL RDW (11.7-14.4) % Plt Count (182-369) x10^3/uL MPV (9.4-12.3) fL Gran % (34.0-71.1) % Immature Gran % (Auto) (0.001-0.429) % Nucleat RBC Rel Count (0.00-0.2) % Eos # (Auto) (0.04-0.36) x10^3/uL Immature Gran # (Auto) (0.001-0.031) x10^3u/L Absolute Lymphs (auto) (1.18-3.74) x10^3/uL Absolute Monos (auto) (0.24-0.86) x10^3/uL Absolute Nucleated RBC (0.00-0.012) x10^3u/L Lymphocytes % (19.3-51.7) % Monocytes % (4.7-12.5) % Eosinophils % (0.7-5.8) % Basophils % (0.1-1.2) % Absolute Granulocytes (1.56-6.13) x10^3/uL Basophils # (0.01-0.08) x10^3/uL PT (9.4-12.5) SECONDS INR (0.8-3.0) APTT (25.1-36.5) SECONDS D-Dimer (0.0-0.50) mg/L pO2/FiO2 Ratio % VBG pH (7.32-7.42) VBG pCO2 at Pat Temp (42-55) mm/Hg VBG pO2 at Pat Temp (25-40) mm/Hg VBG HCO3 (22-28) meq/L VBG O2 Sat (Jaden) (95-100) VBG Base Excess (-2.0-2.0) VBG Hemoglobin VBG Carboxyhemoglobin (0.0-6.9) % T HGB POC Potassium (3.5-5.1) Sodium (135-145) mmol/L Potassium (3.5-5.1) mmol/L Chloride (98-107) mmol/L Carbon Dioxide (22-30) mmol/L Anion Gap (5-15) MEQ/L BUN (7-17) mg/dL Creatinine (0.52-1.04) mg/dL Estimated GFR ML/MIN Glucose (74-106) mg/dL POC Glucometer (74 to 106) mg/dL Lactic Acid 0.8 (0.4-2.0) Calcium (8.4-10.2) mg/dL Magnesium (1.6-2.3) mg/dL Total Bilirubin (0.2-1.3) mg/dL AST (14-36) U/L ALT (0-35) U/L Alkaline Phosphatase (38-126) U/L Troponin I (0.000-0.033) ng/mL NT-Pro-B Natriuret Pep (<300) pg/mL Serum Total Protein (6.3-8.2) g/dL Albumin (3.5-5.0) g/dL Amylase (30-110) U/L Lipase (23-300) U/L Urine Color (Yellow) Urine Appearance (Clear) Urine pH (4.6-8.0) Ur Specific [place] (1.005-1.030) Urine Protein (Negative) Urine Glucose (UA) (Negative) mg/dL Urine Ketones (Negative) Urine Blood (Negative) Urine Nitrite (Negative) Urine Bilirubin (Negative) Urine Urobilinogen (0.2) mg/dL Ur Leukocyte Esterase (Negative) U Hyaline Cast (Auto) (0-2) /LPF Urine Microscopic RBC (0-5) /HPF Urine Microscopic WBC (0-5) /HPF Ur Epithelial Cells (None Seen) /HPF Urine Bacteria (None Seen) /HPF Urine Culture Reflexed (NO) Urine Opiates Level (NEGATIVE) Ur Methadone (NEGATIVE) Urine Barbiturates (NEGATIVE) Ur Phencyclidine (PCP) (NEGATIVE) Urine Amphetamine (NEGATIVE) U Benzodiazepine Level (NEGATIVE) Urine Cocaine (NEGATIVE) Urine Marijuana (THC) (NEGATIVE) - Progress Progress: improved Counseled pt/family regarding: lab results, diagnosis, need for follow-up, rad results Medical Desision Making - Diagnostic Testing Diagnostic test were ordered, analyzed, and reviewed by me: Yes Radiological Interpretation: Discussed w/ radiologist - Departure Departure Disposition: Home Clinical Impression: Nausea, Dizzy, Headache, Chest pain, Dyspnea Condition: Stable Critical Care Time: No Referrals: KIA ANNE MD [Primary Care Provider] - Follow up/PCP as directed Instructions: Shortness of Breath (Dyspnea) (DC), Dizziness, Adult ED Additional Instructions: Follow up with private doctor tomorrow.
[2024-03-16] MEDS ORDERED: Sodium Chloride 0.9% 1000 ML 1,000 ML ONE (11:40)
[2024-03-16 11:41] LABS: VBG BASE EXCESS 6.1 (-2.0-2.0); VBG CARBOXYHEMOGLOBIN 2.4 % T HGB (0.0-6.9); VBG HCO3- 31.8 meq/L (22-28); VBG HEMOGLOBIN 13.5; VBG O2 SATURATION 71.9 (95-100); VBG POTASSIUM 4.3 (3.5-5.1); VBG pH 7.42 (7.32-7.42)
[2024-03-16 11:53] LABS: Absolute Neutrophil Ct (ANC) 2.55 x10^3/uL (1.56-6.13); BASOPHIL % 0.9 % (0.1-1.2); Basophil (Absolute #) 0.04 x10^3/uL (0.01-0.08); Eosinophil % 1.6 % (0.7-5.8); Eosinophil (Absolute #) 0.07 x10^3/uL (0.04-0.36); Hematocrit 39.3 % (34.1-44.9); IMMATURE GRAN # 0.03 x10^3u/L (0.001-0.031); IMMATURE GRAN % 0.7 % (0.001-0.429); Lymphocyte (Absolute #) 1.39 x10^3/uL (1.18-3.74); Lymphocytes % 31.2 % (19.3-51.7); Mean Cell Volume 90.6 fL (79.4-94.8); Mean Corpuscular Hgb Concent. 33.1 g/dL (32.2-35.5); Mean Platelet Volume 9.5 fL (9.4-12.3); Monocyte (Absolute #) 0.37 x10^3/uL (0.24-0.86); Monocytes % 8.3 % (4.7-12.5); Neutrophil % 57.3 % (34.0-71.1); Platelet Count 220 x10^3/uL (182-369); Red Blood Count 4.34 x10^6/uL (3.93-5.22); Red Cell Distribution Width 14.7 % (11.7-14.4); White Blood Count 4.5 x10^3/uL (3.98-10.04)
[2024-03-16] MEDS: Sodium Chloride 0.9% 1000 ML 1,000 ML IV STA (11:58)
[2024-03-16 12:07] LABS: ALBUMIN 4.1 g/dL (3.5-5.0); ANION GAP 10.6 MEQ/L (5-15); BILIRUBIN,TOTAL 0.7 mg/dL (0.2-1.3); Calcium 9.1 mg/dL (8.4-10.2); Creatinine 1 0.87 mg/dL (0.52-1.04); EST GLOMERULAR FILTRATION RATE 74.4 ML/MIN; MAGNESIUM 2.1 mg/dL (1.6-2.3); Potassium 4.3 mmol/L (3.5-5.1); Total Protein 6.7 g/dL (6.3-8.2)
--- NOTE | 2024-03-16 12:07 | XRAY ---
Indication: Headache and dizziness 2 days. Multiple contiguous axial images obtained through the head without contrast. Comparison: October 26, 2023 Normal appearing brain parenchyma, ventricles, and bony calvarium for patient's age. Visualized paranasal sinuses and mastoid air cells are clear. Impression: Continued normal CT head without contrast exam.
--- NOTE | 2024-03-16 12:09 | XRAY ---
Indication: Dyspnea. Comparison: October 26, 2023 AP/lateral chest hyperinflated. Mild bibasilar subsegmental atelectasis/scarring, new on right and unchanged on left. Remaining heart and lungs unremarkable. Again incidental chunky mediastinal calcified node. Bony thorax intact.
[2024-03-16 12:15] LABS: INR 0.94 (0.8-3.0); PROTIME 10.3 SECONDS (9.4-12.5); PTT 23.1 SECONDS (25.1-36.5)
[2024-03-16 12:18] LABS: NT PRO BNPII 131 pg/mL (<300); TROPONIN < 0.012 ng/mL (0.000-0.033)
[2024-03-16 13:47] LABS: ADD URINE CULTURE? NO (NO); Appearance Clear (Clear); Bacteria None Seen /HPF (None Seen); Bilirubin Negative (Negative); Blood Negative (Negative); Epithelial Cells None Seen /HPF (None Seen); Glucose, Urine Negative (Negative); Hyaline Casts NONE SEEN /LPF (0-2); Ketones Negative (Negative); Leukocyte Esterase Negative (Negative); Nitrite Negative (Negative); Protein,Urine Dip Negative (Negative); RBC 0-2 /HPF (0-5); Urobilinogen 0.2 mg/dL (0.2); WBC 0-2 /HPF (0-5)
[2024-03-16 14:00] LABS: Amphetamine,Urine NEGATIVE (NEGATIVE); Barbiturate,Urine NEGATIVE (NEGATIVE); Benzodiazepine,Urine POSITIVE (NEGATIVE); Cocaine,Urine NEGATIVE (NEGATIVE); Methadone,Urine NEGATIVE (NEGATIVE); Opiate,Urine NEGATIVE (NEGATIVE); PCP,Urine NEGATIVE (NEGATIVE); THC,Urine NEGATIVE (NEGATIVE)
[2024-03-16] MEDS ORDERED: Xylocaine-Mpf 2% 5 Ml Vial ONE (14:13)
--- NOTE | 2024-03-16 16:28 | XRAY ---
Indication: Dyspnea. Elevated d-dimer. Multiple contiguous axial images obtained through the chest using 80 cc Isovue 370 contrast and PE protocol. Comparison: None Good opacification of the pulmonary arteries to include the lobar and segmental branches. No pulmonary embolus. Heart not enlarged. Aorta is normal in course and caliber. [place] subcarinal and tiny left hilar calcified nodes. No pathologic mediastinal/hilar lymphadenopathy. Lungs demonstrates mild bilateral dependent atelectasis and minimal bilateral mid and lower lung subsegmental atelectasis/scarring. No suspicious pulmonary mass/nodule, infiltrate, effusion, or pneumothorax. Bony thorax intact with minimal degenerative changes throughout spine. Limited upper abdomen demonstrates tiny splenic calcified granulomas. Impression: 1. Negative pulmonary embolus. No acute cardiopulmonary abnormalities. 2. Chronic findings including atelectasis/scarring, minimal degenerative spondylosis, and old granulomatous disease.
[2024-03-16 17:02] VITALS: BP 146/68; PULSE 69; RESP 15; O2SAT 97
== END 2024-03-16 17:08 | disposition home or self-care (01) ==
LOC: ED 10:58
DX: R11.0 Nausea (principal); R42 Dizziness and giddiness; R51.9 Headache, unspecified; R07.9 Chest pain, unspecified; R06.00 Dyspnea, unspecified; Z79.85 Long-term (current) use of injectable non-insulin antidiabetic drugs; Z79.899 Other long term (current) drug therapy; Z59.12 Inadequate housing utilities; Z59.819 Housing instability, housed unspecified; Z99.81 Dependence on supplemental oxygen
CPT/HCPCS: 36000; 36415; 70450; 71046; 71260; 80053; 80307; 81001; 82150; 82805; 82947; 83605; 83690; 83735; 83880; 84484; 85025; 85379; 85610; 85730; 93005; 93041; 94760; 96360; 99284

== ENCOUNTER 2024-04-08 11:05 | Emergency (ER) | payer MEDICARE ==
--- NOTE | 2024-04-08 11:10 | ERPHSYRPT ---
- History of Present Illness Time Seen by Provider: 04/08/24 11:10 Source: patient, EMS, old records Exam Limitations: no limitations Physician History: This is a morbidly obese 64-year-old white female patient of Dr. Anne who presents to the emergency department with chronic and persistent right sided weakness. Patient contacted the primary care office and staff in that facility, since Dr. Anne was not available, told the patient to come to the emergency room to obtain an MRI scan. Patient has had extensive workup within the last few weeks including a CT scan of the head on 03/16/2024 which showed no acute intracranial abnormality, a CT scan of the chest with contrast on the same date which showed no pulmonary embolism and no acute cardiopulmonary abnormality. On 03/30/2024 patient underwent a brain MRI which shows a new, tiny, frontal right venous angioma but no acute abnormality. Patient does not need a repeat MRI of the brain. Patient denies chest pain. Patient denies shortness of breath. She has had no nausea vomiting or diarrhea symptoms. She denies abdominal pain. Patient has a history of oxygen dependent COPD and wears 2 L of oxygen via nasal cannula, has a history of hyperlipidemia, anxiety, depression, diabetes, chronic angina, asthma, sleep apnea, chronic liver disease and peripheral neuropathy. Timing/Duration: other (Chronic and persistent) Severity: mild Associated Symptoms: weakness (Generalized but worse on the right side but unchanged when compared to chronic complaints of weakness) Allergies/Adverse Reactions: Penicillins Allergy (Severe, Verified 04/08/24 11:28) Difficulty Breathing shellfish derived Allergy (Severe, Verified 04/08/24 11:28) swelling and stop breathing. codeine Allergy (Mild, Verified 04/08/24 11:28) Hives Sulfa (Sulfonamide Antibiotics) Allergy (Unknown, Verified 04/08/24 11:28) Hives aspirin Allergy (Verified 04/08/24 11:28) ibuprofen [From Motrin] Allergy (Verified 04/08/24 11:28) cephalexin [From Keflex] Adverse Reaction (Verified 04/08/24 11:28) Home Medications: Duloxetine HCl 30 mg [Cymbalta 30 MG Capsule] 60 mg PO HS 03/09/21 [History] Pregabalin [Lyrica 100Mg] 200 mg PO TID 03/09/21 [History] ALPRAZolam 1 MG [Xanax 1 mg] 0.5 mg PO TID PRN 10/24/22 [History] Atorvastatin Calcium 40 mg PO DAILY 10/24/22 [History] Ranolazine [Ranolazine ER] 500 mg PO BID 10/24/22 [History] Semaglutide [Ozempic] 1 mg SQ WEEKLY 10/24/22 [History] Famotidine 20 mg [Pepcid 20 MG] 20 mg PO BID 07/03/23 [History] Quetiapine Fumarate 300 mg PO UD 04/08/24 [History] buPROPion HCL [Bupropion Xl] 300 mg PO UD 04/08/24 [History] hydrOXYzine pamoate [Vistaril] 25 mg PO UD 04/08/24 [History] Hx Tetanus, Diphtheria Vaccination/Date Given: No Hx Influenza Vaccination/Date Given: Yes Hx Pneumococcal Vaccination/Date Given: No Travel Risk - International Travel Have you traveled outside of the country in past 3 weeks: No - Emerging Infectious Disease Are you exhibiting symptoms associated with any current EIDs: No - Review of Systems Constitutional: Weakness Eyes: No Symptoms Ears, Nose, & Throat: No Symptoms Respiratory: No Symptoms Cardiac: No Symptoms Abdominal/Gastrointestinal: No Symptoms Genitourinary Symptoms: No Symptoms Musculoskeletal: No Symptoms Skin: No Symptoms Neurological: No Symptoms Psychological: No Symptoms Endocrine: No Symptoms Hematologic/Lymphatic: No Symptoms Immunological/Allergic: No Symptoms All Other Systems: Reviewed and Negative - Past Medical History Pertinent Past Medical History: Yes Neurological History: Peripheral Neuropathy, Other ENT History: No Pertinent History Cardiac History: Angina, Other Respiratory History: Asthma, Sleep Apnea Endocrine Medical History: Liver Disease, Other Musculoskeletal History: Fractures, Other GI Medical History: Ulcer History: Other Psycho-Social History: Depression, Other Female Reproductive Disorders: No Pertinent History Other Medical History: FATTY LIVER DISEASE, PATIENT REPORTS MONITORED FOR KIDNEY FUNCTION YEARLY, "LEAKY" VALVES, HX FX RIGHT WRIST WITH ORIF, ELBOW (HX OF RADIAL HEAD REMOVAL) AND HAND. ANXIETY, DEPRESSION - Past Surgical History Past Surgical History: Yes Neuro Surgical History: No Pertinent History Cardiac: Cardiac Catheterization Respiratory: No Pertinent History Gastrointestinal: Other Genitourinary: No Pertinent History Musculoskeletal: Orthopedic Surgery Female Surgical History: Section, Tubal Ligation Other Surgical History: RIGHT ARM X2. spinal cord stim placed. liver biopsy. left foot hammer toe correction. removal of hardware right foot Significant Family History: no pertinent family hx - Social History Smoking Status: Former smoker Exposure to second hand smoke: No Alcohol Use: None Drug Use: none Patient Lives Alone: Yes - Social Determinants of Health Will the patient participate in the screening: Yes Do you worry about a steady place to live?: Yes In the past 12 months,have you had to go without utilities?: Yes Transportation Issues: No Has anyone in your support network made you feel unsafe?: No Have you or anyone in your house had to go without enough: No - Nursing Vital Signs Nursing Vital Signs: Initial Vital Signs Temperature 98.8 F 04/08/24 11:06 Pulse Rate 82 04/08/24 11:06 Blood Pressure 112/79 04/08/24 11:06 O2 Sat by Pulse Oximetry 94 L 04/08/24 11:06 Pain Scale Pain Intensity 0 - Physical Exam General Appearance: no apparent distress, alert, anxiety, obese Eye Exam: PERRL/EOMI, eyes nml inspection Ears, Nose, Throat Exam: normal ENT inspection, moist mucous membranes Neck Exam: normal inspection, non-tender, supple, full range of motion Respiratory Exam: normal breath sounds, lungs clear, airway intact, No chest tenderness, No respiratory distress Cardiovascular Exam: regular rate/rhythm, normal heart sounds, normal peripheral pulses Gastrointestinal/Abdomen Exam: soft, normal bowel sounds, No tenderness Pelvic Exam: not done Rectal Exam: not done Back Exam: normal inspection, normal range of motion, No CVA tenderness, No vertebral tenderness Extremity Exam: normal inspection, normal range of motion, pelvis stable Neurologic Exam: alert, oriented x 3, cooperative, pharmacist manager II-XII nml as tested, sensation nml Skin Exam: normal color, warm, dry Lymphatic Exam: No adenopathy SpO2 Interpretation: normal O2 Delivery: Room Air - Course Nursing assessment & vital signs reviewed: Yes EKG Interpreted by Me: RATE (81), Sinus Rhythm, NORMAL AXIS, NORMAL INTERVALS, NORMAL QRS, NORMAL ST-T, Other (No acute ischemia on today's twelve-lead EKG. No change when compared to twelve-lead EKG dated 03/16/2024. QTc is 449) Ordered Tests: Active Orders 24 hr Category Date Time Status Waitstaff STAT Care 04/08/24 11:21 Active EKG-ER Only STAT Care 04/08/24 11:20 Active IV Insertion STAT Care 04/08/24 11:20 Active Pulse Oximetry (ED) STAT Care 04/08/24 11:20 Active Re-Check Vital Signs STAT Care 04/08/24 11:20 Active CBC W DIFF Stat Lab 04/08/24 11:40 Completed CMP Stat Lab 04/08/24 11:40 Completed Lactic Acid Stat Lab 04/08/24 11:29 Completed MAGNESIUM Stat Lab 04/08/24 11:40 Completed MONO SCREEN Stat Lab 04/08/24 11:54 Completed NT PRO BNPII Stat Lab 04/08/24 11:40 Completed TROPONIN Q4H Lab 04/08/24 11:40 Completed TROPONIN Q4H Lab 04/08/24 15:30 Ordered TROPONIN Q4H Lab 04/08/24 19:30 Ordered TSH, 3RD Generation Stat Lab 04/08/24 11:40 Completed UA W/RFX UR CULTURE Stat Lab 04/08/24 14:00 Completed Medication Summary Generic Name Dose Route Start Last Admin Trade Name Freq PRN Reason Stop Dose Admin Sodium Chloride 1,000 mls @ 100 mls/hr 04/08/24 11:30 04/08/24 11:33 Sodium Chloride 0.9% 1000 Ml IV 05/08/24 11:29 100 mls/hr .Q10H AGATHA Administration Lab/Rad Data: Laboratory Result Diagrams 04/08/24 11:40 04/08/24 11:40 Laboratory Results 04/08/24 04/08/24 04/08/24 Range/Units 14:00 11:56 11:54 WBC (3.98-10.04) x10^3/uL RBC (3.93-5.22) x10^6/uL Hgb (11.2-15.7) g/dL Hct (34.1-44.9) % MCV (79.4-94.8) fL MCH (25.6-32.2) pg MCHC (32.2-35.5) g/dL RDW (11.7-14.4) % Plt Count (182-369) x10^3/uL MPV (9.4-12.3) fL Gran % (34.0-71.1) % Immature Gran % (Auto) (0.001-0.429) % Nucleat RBC Rel Count (0.00-0.2) % Eos # (Auto) (0.04-0.36) x10^3/uL Immature Gran # (Auto) (0.001-0.031) x10^3u/L Absolute Lymphs (auto) (1.18-3.74) x10^3/uL Absolute Monos (auto) (0.24-0.86) x10^3/uL Absolute Nucleated RBC (0.00-0.012) x10^3u/L Lymphocytes % (19.3-51.7) % Monocytes % (4.7-12.5) % Eosinophils % (0.7-5.8) % Basophils % (0.1-1.2) % Absolute Granulocytes (1.56-6.13) x10^3/uL Basophils # (0.01-0.08) x10^3/uL Sodium (135-145) mmol/L Potassium (3.5-5.1) mmol/L Chloride (98-107) mmol/L Carbon Dioxide (22-30) mmol/L Anion Gap (5-15) MEQ/L BUN (7-17) mg/dL Creatinine (0.52-1.04) mg/dL Estimated GFR ML/MIN Glucose (74-106) mg/dL Lactic Acid (0.4-2.0) Calcium (8.4-10.2) mg/dL Magnesium (1.6-2.3) mg/dL Total Bilirubin (0.2-1.3) mg/dL AST (14-36) U/L ALT (0-35) U/L Alkaline Phosphatase (38-126) U/L Troponin I (0.000-0.033) ng/mL NT-Pro-B Natriuret Pep (<300) pg/mL Serum Total Protein (6.3-8.2) g/dL Albumin (3.5-5.0) g/dL Free T4 (0.78-2.19) ng/dL TSH 3rd Generation (0.470-4.680) mIU/L Urine Color Yellow (Yellow) Urine Appearance Clear (Clear) Urine pH 7.0 (4.6-8.0) Ur Specific [place] <=1.005 (1.005-1.030) Urine Protein Negative (Negative) Urine Glucose (UA) Negative (Negative) mg/dL Urine Ketones Negative (Negative) Urine Blood Negative (Negative) Urine Nitrite Negative (Negative) Urine Bilirubin Negative (Negative) Urine Urobilinogen 0.2 (0.2) mg/dL Ur Leukocyte Esterase Negative (Negative) U Hyaline Cast (Auto) NONE SEEN (0-2) /LPF Urine Microscopic RBC 0-2 (0-5) /HPF Urine Microscopic WBC 0-2 (0-5) /HPF Ur Epithelial Cells None Seen (None Seen) /HPF Urine Bacteria None Seen (None Seen) /HPF Urine Culture Reflexed NO (NO) Monoscreen NEGATIVE (NEGATIVE) Influenza Type A Ag NEGATIVE (NEGATIVE) Influenza Type B Ag NEGATIVE (NEGATIVE) RSV (PCR) NEGATIVE (NEGATIVE) SARS-CoV-2 (PCR) NEGATIVE (NEGATIVE) 04/08/24 04/08/24 04/08/24 Range/Units 11:54 11:40 11:40 WBC (3.98-10.04) x10^3/uL RBC (3.93-5.22) x10^6/uL Hgb (11.2-15.7) g/dL Hct (34.1-44.9) % MCV (79.4-94.8) fL MCH (25.6-32.2) pg MCHC (32.2-35.5) g/dL RDW (11.7-14.4) % Plt Count (182-369) x10^3/uL MPV (9.4-12.3) fL Gran % (34.0-71.1) % Immature Gran % (Auto) (0.001-0.429) % Nucleat RBC Rel Count (0.00-0.2) % Eos # (Auto) (0.04-0.36) x10^3/uL Immature Gran # (Auto) (0.001-0.031) x10^3u/L Absolute Lymphs (auto) (1.18-3.74) x10^3/uL Absolute Monos (auto) (0.24-0.86) x10^3/uL Absolute Nucleated RBC (0.00-0.012) x10^3u/L Lymphocytes % (19.3-51.7) % Monocytes % (4.7-12.5) % Eosinophils % (0.7-5.8) % Basophils % (0.1-1.2) % Absolute Granulocytes (1.56-6.13) x10^3/uL Basophils # (0.01-0.08) x10^3/uL Sodium 137 (135-145) mmol/L Potassium 4.9 (3.5-5.1) mmol/L Chloride 105 (98-107) mmol/L Carbon Dioxide 26 (22-30) mmol/L Anion Gap 9.9 (5-15) MEQ/L BUN 19 H (7-17) mg/dL Creatinine 0.88 (0.52-1.04) mg/dL Estimated GFR 72.9 ML/MIN Glucose 81 (74-106) mg/dL Lactic Acid (0.4-2.0) Calcium 9.2 (8.4-10.2) mg/dL Magnesium 1.9 (1.6-2.3) mg/dL Total Bilirubin 0.40 (0.2-1.3) mg/dL AST 19 (14-36) U/L ALT 16 (0-35) U/L Alkaline Phosphatase 75 (38-126) U/L Troponin I < 0.012 (0.000-0.033) ng/mL NT-Pro-B Natriuret Pep 133 (<300) pg/mL Serum Total Protein 5.7 L (6.3-8.2) g/dL Albumin 3.4 L (3.5-5.0) g/dL Free T4 0.73 L (0.78-2.19) ng/dL TSH 3rd Generation 1.688 (0.470-4.680) mIU/L Urine Color (Yellow) Urine Appearance (Clear) Urine pH (4.6-8.0) Ur Specific [place] (1.005-1.030) Urine Protein (Negative) Urine Glucose (UA) (Negative) mg/dL Urine Ketones (Negative) Urine Blood (Negative) Urine Nitrite (Negative) Urine Bilirubin (Negative) Urine Urobilinogen (0.2) mg/dL Ur Leukocyte Esterase (Negative) U Hyaline Cast (Auto) (0-2) /LPF Urine Microscopic RBC (0-5) /HPF Urine Microscopic WBC (0-5) /HPF Ur Epithelial Cells (None Seen) /HPF Urine Bacteria (None Seen) /HPF Urine Culture Reflexed (NO) Monoscreen (NEGATIVE) Influenza Type A Ag (NEGATIVE) Influenza Type B Ag (NEGATIVE) RSV (PCR) (NEGATIVE) SARS-CoV-2 (PCR) (NEGATIVE) 04/08/24 04/08/24 Range/Units 11:40 11:29 WBC 7.1 (3.98-10.04) x10^3/uL RBC 4.04 (3.93-5.22) x10^6/uL Hgb 12.2 (11.2-15.7) g/dL Hct 37.3 (34.1-44.9) % MCV 92.3 (79.4-94.8) fL MCH 30.2 (25.6-32.2) pg MCHC 32.7 (32.2-35.5) g/dL RDW 14.6 H (11.7-14.4) % Plt Count 215 (182-369) x10^3/uL MPV 9.4 (9.4-12.3) fL Gran % 70.2 (34.0-71.1) % Immature Gran % (Auto) 2.1 H (0.001-0.429) % Nucleat RBC Rel Count 0.0 (0.00-0.2) % Eos # (Auto) 0.15 (0.04-0.36) x10^3/uL Immature Gran # (Auto) 0.15 H (0.001-0.031) x10^3u/L Absolute Lymphs (auto) 1.25 (1.18-3.74) x10^3/uL Absolute Monos (auto) 0.52 (0.24-0.86) x10^3/uL Absolute Nucleated RBC 0.00 (0.00-0.012) x10^3u/L Lymphocytes % 17.6 L (19.3-51.7) % Monocytes % 7.3 (4.7-12.5) % Eosinophils % 2.1 (0.7-5.8) % Basophils % 0.7 (0.1-1.2) % Absolute Granulocytes 4.98 (1.56-6.13) x10^3/uL Basophils # 0.05 (0.01-0.08) x10^3/uL Sodium (135-145) mmol/L Potassium (3.5-5.1) mmol/L Chloride (98-107) mmol/L Carbon Dioxide (22-30) mmol/L Anion Gap (5-15) MEQ/L BUN (7-17) mg/dL Creatinine (0.52-1.04) mg/dL Estimated GFR ML/MIN Glucose (74-106) mg/dL Lactic Acid 0.7 (0.4-2.0) Calcium (8.4-10.2) mg/dL Magnesium (1.6-2.3) mg/dL Total Bilirubin (0.2-1.3) mg/dL AST (14-36) U/L ALT (0-35) U/L Alkaline Phosphatase (38-126) U/L Troponin I (0.000-0.033) ng/mL NT-Pro-B Natriuret Pep (<300) pg/mL Serum Total Protein (6.3-8.2) g/dL Albumin (3.5-5.0) g/dL Free T4 (0.78-2.19) ng/dL TSH 3rd Generation (0.470-4.680) mIU/L Urine Color (Yellow) Urine Appearance (Clear) Urine pH (4.6-8.0) Ur Specific [place] (1.005-1.030) Urine Protein (Negative) Urine Glucose (UA) (Negative) mg/dL Urine Ketones (Negative) Urine Blood (Negative) Urine Nitrite (Negative) Urine Bilirubin (Negative) Urine Urobilinogen (0.2) mg/dL Ur Leukocyte Esterase (Negative) U Hyaline Cast (Auto) (0-2) /LPF Urine Microscopic RBC (0-5) /HPF Urine Microscopic WBC (0-5) /HPF Ur Epithelial Cells (None Seen) /HPF Urine Bacteria (None Seen) /HPF Urine Culture Reflexed (NO) Monoscreen (NEGATIVE) Influenza Type A Ag (NEGATIVE) Influenza Type B Ag (NEGATIVE) RSV (PCR) (NEGATIVE) SARS-CoV-2 (PCR) (NEGATIVE) - Progress Progress: unchanged, re-examined Progress Note: 04/08/24 14:24 My medical decision making and the assignment of today's medical issue in this patient is based on review the patient's past medical history, review of the patient's recent radiographic and laboratory studies, review of the patient's medication list, review the patient drug allergy list, history present illness and physical findings on examination. The workup in this patient does not require repeat MRI of the brain that was just performed [address] scan of the head that was performed approximately 3 weeks ago. However we will recheck a twelve-lead EKG, CBC, CMP, troponin level, urinalysis, thyroid function test and viral swabs as well as monotest. Differential diagnosis includes but is not limited to persistent, chronic weakness, myocardial infarction, electrolyte abnormalities, dehydration, urinary tract infection, anemia, arrhythmia I interpreted the patient's laboratory data results. Based on today's laboratory data results, there are no acute or emergent medical issues. Patient is to follow-up with her primary care provider on 04/11/2024. Counseled pt/family regarding: lab results, diagnosis, need for follow-up Medical Desision Making - Independent Historian Additional History obtained from: Fitting Room Attendant/EMT - Social Determinants of Health Limited access to: transportation, medical care - Diagnostic Testing Diagnostic test were ordered, analyzed, and reviewed by me: Yes Radiological Interpretation: Reviewed by me, Teleradiologist Report - Risk of complications Low Risk: Low risk of morbidity from additional dx testing or treatment - Departure Departure Disposition: Home Clinical Impression: Generalized weakness Condition: Stable Critical Care Time: No Referrals: KIA ANNE MD [Primary Care Provider] - Follow up/PCP as directed Additional Instructions: Drink plenty of fluids. Advance your diet slowly. Take your medications as prescribed. Call your primary care provider on 04/11/2024 to make arranges for follow-up appointment for further evaluation and management.
[2024-04-08 11:25] VITALS: TEMP 98.8
[2024-04-08] MEDS ORDERED: Sodium Chloride 0.9% 1000 ML 1,000 ML ONE (11:31)
[2024-04-08] MEDS: Sodium Chloride 0.9% 1000 ML 1,000 ML IV SCH (11:33)
[2024-04-08 12:03] LABS: Absolute Neutrophil Ct (ANC) 4.98 x10^3/uL (1.56-6.13); BASOPHIL % 0.7 % (0.1-1.2); Basophil (Absolute #) 0.05 x10^3/uL (0.01-0.08); Eosinophil % 2.1 % (0.7-5.8); Eosinophil (Absolute #) 0.15 x10^3/uL (0.04-0.36); Hematocrit 37.3 % (34.1-44.9); Hemoglobin 12.2 g/dL (11.2-15.7); IMMATURE GRAN # 0.15 x10^3u/L (0.001-0.031); IMMATURE GRAN % 2.1 % (0.001-0.429); Lymphocyte (Absolute #) 1.25 x10^3/uL (1.18-3.74); Lymphocytes % 17.6 % (19.3-51.7); Mean Cell Volume 92.3 fL (79.4-94.8); Mean Corpuscular Hemoglobin 30.2 pg (25.6-32.2); Mean Corpuscular Hgb Concent. 32.7 g/dL (32.2-35.5); Mean Platelet Volume 9.4 fL (9.4-12.3); Monocyte (Absolute #) 0.52 x10^3/uL (0.24-0.86); Monocytes % 7.3 % (4.7-12.5); Neutrophil % 70.2 % (34.0-71.1); Platelet Count 215 x10^3/uL (182-369); Red Blood Count 4.04 x10^6/uL (3.93-5.22); Red Cell Distribution Width 14.6 % (11.7-14.4); White Blood Count 7.1 x10^3/uL (3.98-10.04)
[2024-04-08 12:36] LABS: INFLUENZA A NEGATIVE (NEGATIVE); INFLUENZA B NEGATIVE (NEGATIVE); RESPIRATORY SYNCTIAL VIRUS NEGATIVE (NEGATIVE); SARS-CoV-2 Xpert Express NEGATIVE (NEGATIVE)
[2024-04-08 12:50] LABS: ALBUMIN 3.4 g/dL (3.5-5.0); ANION GAP 9.9 MEQ/L (5-15); BILIRUBIN,TOTAL 0.4 mg/dL (0.2-1.3); Calcium 9.2 mg/dL (8.4-10.2); Creatinine 1 0.88 mg/dL (0.52-1.04); EST GLOMERULAR FILTRATION RATE 72.9 ML/MIN; MAGNESIUM 1.9 mg/dL (1.6-2.3); Potassium 4.9 mmol/L (3.5-5.1); TSH, 3RD Generation 1.688 mIU/L (0.470-4.680); Total Protein 5.7 g/dL (6.3-8.2)
[2024-04-08 13:55] VITALS: BP 123/75; PULSE 71; RESP 21; O2SAT 94
[2024-04-08 14:12] LABS: Appearance Clear (Clear); Bacteria None Seen /HPF (None Seen); Bilirubin Negative (Negative); Blood Negative (Negative); Epithelial Cells None Seen /HPF (None Seen); Glucose, Urine Negative (Negative); Hyaline Casts NONE SEEN /LPF (0-2); Ketones Negative (Negative); Leukocyte Esterase Negative (Negative); Nitrite Negative (Negative); Protein,Urine Dip Negative (Negative); RBC 0-2 /HPF (0-5); Specific Gravity <=1.005 (1.005-1.030); Urobilinogen 0.2 mg/dL (0.2); WBC 0-2 /HPF (0-5)
[2024-04-08 14:21] LABS: ADD URINE CULTURE? NO (NO)
== END 2024-04-08 14:46 | disposition home or self-care (01) ==
LOC: ED 11:05
DX: R53.1 Weakness (principal); E78.5 Hyperlipidemia, unspecified; E11.42 Type 2 diabetes mellitus with diabetic polyneuropathy; Z79.85 Long-term (current) use of injectable non-insulin antidiabetic drugs; Z79.899 Other long term (current) drug therapy; Z59.819 Housing instability, housed unspecified; Z59.12 Inadequate housing utilities; Z99.81 Dependence on supplemental oxygen
CPT/HCPCS: 0241U; 36000; 36415; 80053; 81001; 83605; 83735; 83880; 84439; 84443; 84484; 85025; 86308; 93005; 93041; 94760; 99284

== ENCOUNTER 2024-08-08 06:59 | Day surgery (SDC) | payer MEDICARE ==
[2024-08-08] MEDS ORDERED: CLINDAMYCIN-D5W 900 MG/50 ML*** 900 MG/50 ML BAG IV ONE (07:02)
[2024-08-08] MEDS ORDERED: NEURONTIN ONE (07:03)
[2024-08-08] MEDS ORDERED: TYLENOL EXTRA STRENGTH 500 MG ONE (07:03)
[2024-08-08] MEDS ORDERED: Decadron 4 MG ONE (07:03)
[2024-08-08] MEDS ORDERED: Lactated Ringers 1,000 ML IV ONE (07:04)
[2024-08-08] MEDS ORDERED: celeBREX 100 MG ONE (07:04)
[2024-08-08] MEDS: Lactated Ringers 1,000 ML IV SCH (07:08)
[2024-08-08] MEDS: CLINDAMYCIN-D5W 900 MG/50 ML*** 900 MG/50 ML BAG IV ONE (07:08)
[2024-08-08] MEDS: celeBREX 100 MG PO ONE (07:09)
[2024-08-08] MEDS: TYLENOL EXTRA STRENGTH 500 MG PO ONE (07:09)
[2024-08-08] MEDS: NEURONTIN PO ONE (07:09)
[2024-08-08] MEDS: Decadron 4 MG PO ONE (07:09)
[2024-08-08] MEDS ORDERED: MARCAINE 0.25% PF/ EPI 1:200,000 ONE (08:32)
[2024-08-08] MEDS ORDERED: Transderm Scop 1.5MG Patch ONE (08:54)
[2024-08-08] MEDS ORDERED: SUBLIMAZE 100 MCG/2 ML ONE ×2 (09:01→10:12)
[2024-08-08] MEDS ORDERED: TORAdol 30 mg Injection ONE (09:01)
[2024-08-08] MEDS ORDERED: ROCURONIUM BROMIDE IV ONE (09:01)
[2024-08-08] MEDS ORDERED: BRIDION 200MG/2ML IV ONE (09:01)
[2024-08-08] MEDS ORDERED: Xylocaine-Mpf 2% 5 Ml Vial ONE (09:01)
[2024-08-08] MEDS ORDERED: Zofran 4 MG/2 ML VIAL ONE (09:01)
[2024-08-08] MEDS ORDERED: Hydromorphone 1 mg/ml Injection ONE ×2 (10:07→10:54)
[2024-08-08 11:30] VITALS: RESP 18; TEMP 97.8
[2024-08-08 11:51] VITALS: BP 127/67; PULSE 72; O2SAT 91
--- NOTE | 2024-08-09 09:45 | OP ---
SURGERY DATE/TIME: 08/08/2024 [id number] PREOPERATIVE DIAGNOSES: 1) Torn right lateral meniscus. 2) Degenerative joint disease. POSTOPERATIVE DIAGNOSES: 1) Torn right lateral meniscus. 2) Degenerative joint disease. PROCEDURE: Arthroscopy of the right knee with partial lateral meniscectomy and chondroplasty of the patella, trochlear groove and medial femoral condyle. SURGEON: Sushil Negrete II, ANESTHESIA: General. DESCRIPTION OF PROCEDURE AND FINDINGS: The patient was identified and informed consent was obtained. The patient was taken to the operative suite and placed in supine position on the operating table where the general anesthetic was administered. Once an appropriate level of anesthesia had been obtained, a tourniquet was placed high on the right thigh which was then placed in the knee fields and prepped and draped in the usual sterile fashion. A standard time out was taken. The leg was exsanguinated and tourniquet elevated to 350 mmHg. A standard superomedial portal was created with an 11 blade. Trocar and cannula were placed in the joint. The joint was distended with the arthroscopic pump. Inferolateral portal was created with an 11 blade and the arthroscope was placed in through our cannula. An 18-gauge spinal needle identified the level for the inferomedial portal which was also created with an 11 blade. The knee was then inspected in a systematic fashion beginning in the suprapatellar pouch but there were no loose bodies. Some mild reactive synovitis was noted and incidentally shaved. Undersurface of the patella had some grades 2 and 3 chondromalacia changes as did the trochlear groove and a chondroplasty was performed with the shaver. Scope was then placed in the medial compartment where the medial meniscus was probed throughout its entirety and noted to be intact. There was noted to be a flap of medial femoral condyle cartilage which was shaved and a chondroplasty performed. Intercondylar notch region was then inspected and the anterior cruciate ligament was noted to be intact. The scope was placed in the lateral compartment where a complex tear involving the anterior, middle and posterior horn of the lateral meniscus was encountered, resected with the handheld biting instruments and shaved to a smooth transition with the shaver. The knee was then reinspected and copiously irrigated and reinspected. No further pathology noted. The scope was then removed and the portal sites were closed with interrupted 4-0 nylon suture. The knee was infiltrated with 30 mL of 0.25% Marcaine with epinephrine. Adaptics, 4 x 4's and a standard postop arthroscopy dressing applied. The patient was transferred to the cart and taken to the recovery room in satisfactory condition having tolerated the procedure well.
== END 2024-08-08 11:57 | disposition home or self-care (01) ==
LOC: SDC 06:59
PROVIDERS: ATTEND Orthopaedic Surgery
DX: M17.11 Unilateral primary osteoarthritis, right knee (principal); M25.561 Pain in right knee; S83.281A Other tear of lateral meniscus, current injury, right knee, initial encounter
CPT/HCPCS: 29881; J1171; J1885; J2405; J2704; J3010; A9270-GY

== ENCOUNTER 2024-08-09 15:14 | Emergency (ER) | payer MEDICARE ==
[2024-08-09 16:02] VITALS: TEMP 97.7; O2SAT 95
--- NOTE | 2024-08-09 17:01 | ERPHSYRPT ---
- History of Present Illness Time Seen by Provider: 08/09/24 16:20 Source: patient Exam Limitations: no limitations Patient Subjective Stated Complaint: C/O bleeding from surgery site. Patient states he had some kind of right knee surgery (she can't remember exactly what t he procedure was) at this hospital yesterday with Dr. Negrete. Indicates one of her incision sites is actively bleeding today. Triage Nursing Assessment: Patient brought back to ER in a w/c with an acewrap around her right knee. Dressing removed. Patient noted to have 3 surgical incision sites. All 3 are well approximated with sutures intact. No s/s of infection present. 1 of the 3 incision sites, the distal outer incision, has a small amount of active bleeding/oozing from around the suture. Physician History: 64-year-old female postop day 1 status post right knee arthroscopic surgery presents to our ED for evaluation of pain and oozing at the right lateral incision site. Patient received hydrocodone for pain control. Patient reports the hydrocodone works however pain significantly increases when she ambulates. Patient reports that her orthopedic surgeon advised her to ambulate. No other complaints. No falls no injuries. No numbness tingling or weakness. Patient otherwise feels well. She voices no other complaints or concerns at this time. Portions of this note were created with voice recognition technology. There may be grammatical, spelling, punctuation or sound alike errors Timing/Duration: yesterday Severity: moderate Modifying Factors: Improves With: medication Associated Symptoms: denies symptoms Allergies/Adverse Reactions: Penicillins Allergy (Severe, Verified 08/09/24 16:01) Difficulty Breathing shellfish derived Allergy (Severe, Verified 08/09/24 16:01) swelling and stop breathing. codeine Allergy (Mild, Verified 08/09/24 16:01) Hives Sulfa (Sulfonamide Antibiotics) Allergy (Unknown, Verified 08/09/24 16:01) Hives aspirin Allergy (Verified 08/09/24 16:01) ibuprofen [From Motrin] Allergy (Verified 08/09/24 16:01) cephalexin [From Keflex] Adverse Reaction (Verified 08/09/24 16:01) Home Medications: Duloxetine HCl 30 mg [Cymbalta 30 MG Capsule] 60 mg PO HS 03/09/21 [History] Pregabalin [Lyrica 100Mg] 200 mg PO TID 03/09/21 [History] ALPRAZolam 1 MG [Xanax 1 mg] 0.5 mg PO TID PRN 10/24/22 [History] Atorvastatin Calcium 40 mg PO DAILY 10/24/22 [History] Ranolazine [Ranolazine ER] 500 mg PO BID 10/24/22 [History] Famotidine 20 mg [Pepcid 20 MG] 20 mg PO BID 07/03/23 [History] Quetiapine Fumarate 350 mg PO UD 04/08/24 [History] buPROPion HCL [Bupropion Xl] 300 mg PO UD 04/08/24 [History] Albuterol 8 gm Mdi Hfa [Ventolin Hfa MDI] 8 gm PO UD 07/11/24 [History] Cyanocobalamin 1000 Mcg/ml [Cyanocobalamin B-12 1000 MCG/ML] 1,000 mg SQ UD 07/11/24 [History] EPINEPHrine [Epipen 2-Jared] 0.3 mg SQ UD 07/11/24 [History] Fluticasone Propionate [Flonase NASAL] 16 gm NS UD 07/11/24 [History] Folic Acid 1 mg [Folate 1 mg] 1 mg PO UD 07/11/24 [History] Loratadine 10 mg [Claritin 10 mg] 10 mg PO DAILY 07/11/24 [History] Nitroglycerin 0.4 mg SL UD 07/11/24 [History] Potassium Chloride 10 meq PO UD 07/11/24 [History] Tizanidine HCl 4 mg [Zanaflex 4 MG] 4 mg PO UD 07/11/24 [History] hydrOXYzine HCL [Hydroxyzine HCl] 25 mg PO UD 07/11/24 [History] Hx Tetanus, Diphtheria Vaccination/Date Given: Yes Hx Influenza Vaccination/Date Given: Yes Hx Pneumococcal Vaccination/Date Given: No Immunizations Up to Date: Yes Travel Risk - International Travel Have you traveled outside of the country in past 3 weeks: No - Emerging Infectious Disease Are you exhibiting symptoms associated with any current EIDs: No - Review of Systems Constitutional: No Symptoms, No Fever, No Chills Eyes: No Symptoms Ears, Nose, & Throat: No Symptoms Respiratory: No Symptoms, No Cough, No Dyspnea Cardiac: No Symptoms, No Chest Pain, No Edema, No Syncope Abdominal/Gastrointestinal: No Symptoms, No Abdominal Pain, No Nausea, No Vomiting, No Diarrhea Genitourinary Symptoms: No Symptoms, No Dysuria Musculoskeletal: No Symptoms, No Back Pain, No Neck Pain Skin: No Symptoms, No Rash Neurological: No Symptoms, No Dizziness, No Focal Weakness, No Sensory Changes Psychological: No Symptoms Endocrine: No Symptoms Hematologic/Lymphatic: No Symptoms Immunological/Allergic: No Symptoms All Other Systems: Reviewed and Negative - Past Medical History Pertinent Past Medical History: Yes Neurological History: Peripheral Neuropathy, Other ENT History: No Pertinent History Cardiac History: Coronary Artery Disease, High Cholesterol, Hypertension Respiratory History: Asthma, Sleep Apnea Endocrine Medical History: Liver Disease Musculoskeletal History: Osteoarthritis GI Medical History: Ulcer History: Other Psycho-Social History: Depression, Other Female Reproductive Disorders: No Pertinent History Other Medical History: PMH: CPAP, O2 NEEDED AT HOME. PSH: R SIDE WRIST FRACTURE ORIF X 2, R SIDE ELBOW ORIF, 2 C-SECTIONS - Past Surgical History Past Surgical History: Yes Neuro Surgical History: No Pertinent History Cardiac: Cardiac Catheterization Respiratory: No Pertinent History Gastrointestinal: Other Genitourinary: No Pertinent History Musculoskeletal: Orthopedic Surgery Female Surgical History: Section, Tubal Ligation Other Surgical History: RIGHT ARM X2, spinal cord stem placed, liver biopsy, hammer foot bilateral feet, Right knee surgery Significant Family History: no pertinent family hx - Social History Smoking Status: Former smoker Exposure to second hand smoke: No Alcohol Use: None Drug Use: none Patient Lives Alone: Yes - Social Determinants of Health Will the patient participate in the screening: Yes Do you worry about a steady place to live?: Yes Do you have any problems with any of the following?: No known problems In the past 12 months,have you had to go without utilities?: Yes Transportation Issues: No Has anyone in your support network made you feel unsafe?: No Have you or anyone in your house had to go without enough: No - Nursing Vital Signs Nursing Vital Signs: Initial Vital Signs Temperature 97.7 F 08/09/24 15:53 Pulse Rate 70 08/09/24 15:53 Respiratory Rate 18 08/09/24 15:53 Blood Pressure 148/74 08/09/24 15:53 O2 Sat by Pulse Oximetry 97 08/09/24 15:53 Pain Scale Pain Intensity 4 - Physical Exam General Appearance: no apparent distress, alert Eye Exam: PERRL/EOMI, eyes nml inspection Ears, Nose, Throat Exam: normal ENT inspection, moist mucous membranes Neck Exam: normal inspection, full range of motion Respiratory Exam: normal breath sounds, airway intact, No respiratory distress Cardiovascular Exam: regular rate/rhythm, normal heart sounds, normal peripheral pulses Gastrointestinal/Abdomen Exam: soft, normal bowel sounds, No tenderness, No mass Back Exam: normal inspection, normal range of motion, No CVA tenderness, No vertebral tenderness Extremity Exam: normal inspection, normal range of motion, pelvis stable, other (The involved right lower extremities neuro vas intact distally compartments are soft cap refill less than 2 seconds. There is some oozing at the right lateral incision site. However it is serosanguineous. Some swelling is as well however this is to be expected.) Neurologic Exam: alert, oriented x 3, cooperative, normal mood/affect, sensation nml, No motor deficits Skin Exam: normal color, warm, dry, No rash Lymphatic Exam: No adenopathy SpO2 Interpretation: normal SpO2: 95 O2 Delivery: Room Air - Course Nursing assessment & vital signs reviewed: Yes Ordered Tests: Medication Summary Discontinued Medications Generic Name Dose Route Start Last Admin Trade Name Cristina PRN Reason Stop Dose Admin Morphine Sulfate 4 mg 08/09/24 16:54 Morphine Sulfate 4 Mg/Ml Injection IM 08/09/24 16:55 STAT ONE - Progress Progress: improved Progress Note: 64-year-old female presents to our ED postop day 1 arthroscopic surgery. I discussed the case with patient's orthopedic surgeon Dr. Negrete at 4:46 PM. He advised continue taking the medication he prescribed. No additional pain medication prescribed. He reports mobilization and ice should help the knee pain. No additional narcotics to be prescribed. Dr. Negrete reports that the drainage from the right knee incision site will decrease over time as long as patient continues to exercise and apply ice. Per Dr. Negrete no indication for an ultrasound to rule out DVT. He reports it is too early to have a DVT. Patient's pain is postoperative. I ordered a IM dose of morphine per patient's request. We will send patient home patient will follow-up with Dr. Negrete as scheduled. She will continue to take the oral pain medications as scheduled. Patient will continue with the ice and the exercises as scheduled. Patient voices no other complaints or concerns at this time. Portions of this note were created with voice recognition technology. There may be grammatical, spelling, punctuation or sound alike errors Complexity of problem addressed is moderate acute complicated no critical care time. Complex of data reviewed and analyzed is none. No specialized testing ordered. Diagnosis made based on history and physical exam. Risk of complication and or risk of morbidity/mortality of patient management is low. Vital stable. Time spent to discharge patient is approximately 15 minutes. Plan of care established for shared decision making. No social determinants of health present to impede follow-up. Portions of this note were created with voice recognition technology. There may be grammatical, spelling, punctuation or sound alike errors 08/09/24 16:58 Counseled pt/family regarding: diagnosis, need for follow-up - Departure Departure Disposition: Home Clinical Impression: Postoperative pain Condition: Stable Critical Care Time: No Referrals: KIA ANNE MD [Primary Care Provider] - Follow up/PCP as directed Additional Instructions: Discharge/Care Plan VERONICA MONTEJO was seen on 08/09/24 in the Emergency Room. The patient was counseled regarding Diagnosis,Lab results, Imaging studies, need for follow up and when to return to the Emergency Room. Prescriptions given: Discharge Note I have spoken with the patient and/or caregivers. I have explained the patient's condition, diagnosis and treatment plan based on the information available to me at this time. I have answered the patient's and/or caregiver's questions and addressed any concerns. The patient and/or caregivers have as good understanding of the patient's diagnosis, condition and treatment plan as can be expected at this point. The vital signs have been stable. The patient's condition is stable and appropriate for discharge from the emergency department. The patient will pursue further outpatient evaluation with the primary care physician or other designated or consulting physician as outlined in the discharge instructions. The patient and/or caregivers are agreeable to this plan of care and follow-up instructions have been explained in detail. The patient and/or caregivers have received these instruction. The patient/and or caregivers are aware that any significant change in condition or worsening of symptoms should prompt an immediate return to this or the closest emergency department or call 911.
[2024-08-09] MEDS ORDERED: MORPHINE SULFATE 4 MG INJ ONE (17:02)
[2024-08-09] MEDS: MORPHINE SULFATE 4 MG INJ IM ONE (17:05)
[2024-08-09 17:20] VITALS: BP 121/73; PULSE 70; RESP 18
== END 2024-08-09 17:27 | disposition home or self-care (01) ==
LOC: ED 15:14
DX: G89.18 Other acute postprocedural pain (principal); Z59.00 Homelessness unspecified; Z59.811 Housing instability, housed, with risk of homelessness
CPT/HCPCS: 96372; 99282; 99283; J2270